=== PATIENT | female | born 1990 | race Caucasian/White ===

== ENCOUNTER 2017-10-15 18:50 | Emergency (ER) | payer MEDICAID, OTHER ==
[2017-10-15] MEDS ORDERED: NORMAL SALINE 1000 ML 1,000 ML IV ONE (19:32)
[2017-10-15] MEDS ORDERED: KETOROLAC TROMETHAMINE INJ/PF 30 MG/1 ML SDV IV ONE (19:33)
--- NOTE | 2017-10-15 19:36 | ER Document Report ---
ED Medical Screen (RME) - General Chief Complaint: Abdominal Pain Stated Complaint: HEADACHE, BACK/STOMACH PAIN Time Seen by Provider: 10/15/17 19:32 Mode of Arrival: Ambulatory Information source: Patient TRAVEL OUTSIDE OF THE [place] IN LAST 30 DAYS: No - HPI Patient complains to provider of: abd pain, back pain, JOSEPH Onset: Other - pt has had intermittent abd pain, low back pain and JOSEPH for the past week with exacerbation earlier today - Related Data Allergies/Adverse Reactions: No Known Allergies Allergy (Verified 10/15/17 18:52) Past Medical History - Social History Chew tobacco use (# tins/day): No Frequency of alcohol use: None Drug Abuse: None - Past Medical History Cardiac Medical History: Reports: Hx Hypertension - with first Denies: Hx Heart Murmur Neurological Medical History: Denies: Hx Cerebrovascular Accident, Hx Seizures Renal/ Medical History: Denies: Hx Peritoneal Dialysis Psychiatric Medical History: Reports: Hx Depression - since 14 years years old Denies: Hx Bipolar Disorder, Hx Post Traumatic Stress Disorder, Hx Schizophrenia Past Surgical History: Reports: Hx Abdominal Surgery - gastric bypass surg -2013 Physical Exam - Vital signs Vitals: Temp Pulse Resp BP Pulse Ox 98.4 F 125 H 18 138/68 H 100 10/15/17 18:56 10/15/17 18:56 10/15/17 18:56 10/15/17 18:56 10/15/17 18:56 Course - Vital Signs Vital signs: Temp Pulse Resp BP Pulse Ox 98.4 F 125 H 18 138/68 H 100 10/15/17 18:56 10/15/17 18:56 10/15/17 18:56 10/15/17 18:56 10/15/17 18:56
[2017-10-15] MEDS ORDERED: PROCHLORPERAZINE EDISYLATE INJ 10 MG/2 ML VIAL IV ONE (20:11)
[2017-10-15] MEDS ORDERED: ONDANSETRON HCL INJ/PF 4 MG/2 ML SDV IV ONE (20:11)
[2017-10-15 20:39] LABS: APPEARANCE,URINE CLEAR; BILIRUBIN,URINE NEGATIVE (NEGATIVE); COLOR,URINE STRAW; GLUCOSE, URINE NEGATIVE (NEGATIVE); KETONES,URINE NEGATIVE (NEGATIVE); LEUKOCYTE ESTERASE,URINE NEGATIVE (NEGATIVE); NITRITE,URINE NEGATIVE (NEGATIVE); PROTEIN,URINE NEGATIVE (NEGATIVE); URINE SPECIFIC GRAVITY 1.006
[2017-10-15 20:41] LABS: ALANINE AMINOTRANSFERASE 29 U/L (9-52); ALBUMIN 3.7 g/dL (3.5-5.0); ALKALINE PHOSPHATASE 64 U/L (38-126); ANION GAP 10 (5-19); ASPARTATE AMINO TRANSFERASE 21 U/L (14-36); BILIRUBIN,DIRECT 0.3 mg/dL (0.0-0.4); BILIRUBIN,TOTAL 0.5 mg/dL (0.2-1.3); BLOOD UREA NITROGEN 15 mg/dL (7-20); CALCIUM 8.5 mg/dL (8.4-10.2); CARBON DIOXIDE 23 mmol/L (22-30); CHLORIDE 105 mmol/L (98-107); GLUCOSE 84 mg/dL (75-110); POTASSIUM 3.9 mmol/L (3.6-5.0); SODIUM 137.8 mmol/L (137-145)
[2017-10-15 21:10] LABS: MEAN CORPUSCULAR HEMOGLOBIN 14.7 pg (27.0-33.4); MEAN CORPUSCULAR HGB CONC 27.7 g/dL (32.0-36.0); PLATELET COUNT 374 10^3/uL (150-450); RED BLOOD COUNT 2.02 10^6/uL (3.72-5.28); RED CELL DISTRIBUTION WIDTH 22.7 % (11.5-14.0); WHITE BLOOD COUNT 5.3 10^3/uL (4.0-10.5)
[2017-10-15 21:16] LABS: URINE AMPHETAMINES SCREEN NEGATIVE; URINE BARBITURATES SCREEN NEGATIVE; URINE BENZODIAZEPINES SCREEN NEGATIVE; URINE COCAINE SCREEN NEGATIVE; URINE MARIJUANA (THC) SCREEN NEGATIVE; URINE METHADONE SCREEN NEGATIVE; URINE PHENCYCLIDINE SCREEN NEGATIVE
[2017-10-15 21:22] LABS: ABSOLUTE LYMPHOCYTES# (MANUAL) 1.6 10^3/uL (0.5-4.7); ABSOLUTE MONOCYTES # (MANUAL) 0.1 10^3/uL (0.1-1.4); ABSOLUTE NEUTROPHILS# (MANUAL) 3.5 10^3/uL (1.7-8.2); BASOPHILS % (MANUAL) 2 % (0-2); EOSINOPHILS % (MANUAL) 1 % (0-6); LYMPHOCYTES % (MANUAL) 30 % (13-45); MONOCYTES % (MANUAL) 1 % (3-13); SEGMENTED NEUTROPHILS % (MAN) 66 % (42-78); TOTAL CELLS COUNTED 100
[2017-10-15 21:31] LABS: ANISOCYTOSIS 3+; HYPOCHROMASIA 2+; OVALOCYTES SLIGHT; POIKILOCYTOSIS SLIGHT; TEAR DROP CELLS SLIGHT
[2017-10-15 21:32] LABS: PLATELET COMMENT ADEQUATE
[2017-10-15 21:33] LABS: HEMATOCRIT 10.7 % (36.0-47.0)
[2017-10-15 21:34] LABS: POLYCHROMASIA 1+
[2017-10-15 21:39] LABS: MEAN CORPUSCULAR VOLUME 53 fl (80-97)
[2017-10-15] MEDS ORDERED: NORMAL SALINE 250 ML IV PRN ×2 (21:57)
[2017-10-15] MEDS ORDERED: PANTOPRAZOLE SODIUM 40 MG VIAL IV ONE ×2 (21:58→22:04)
--- NOTE | 2017-10-15 22:30 | RADIOLOGY REPORT (SQ) ---
EXAM DESCRIPTION: CT ABD/PELVIS WITH IV ONLY COMPLETED DATE/TIME: 10/15/2017 10:19 pm REASON FOR STUDY: abd pain COMPARISON: None. TECHNIQUE: CT scan of the abdomen and pelvis performed using helical scanning technique with dynamic intravenous contrast injection. No oral contrast. Images reviewed with lung, soft tissue, and bone windows. Reconstructed coronal and sagittal MPR images reviewed. Delayed images for evaluation of the urinary system also acquired. All images stored on PACS. All CT scanners at this facility use dose modulation, iterative reconstruction, and/or weight based d osing when appropriate to reduce radiation dose to as low as reasonably achievable (ALARA). [facility]: Dose Right [facility]: CareDose [facility]: Dose Right [facility]: Teradose 4D [facility]: Ztail CONTRAST TYPE AND DOSE: contrast/concentration: Isovue 370.00 mg/ml; Total Contrast Delivered: 91.0 ml; Total Saline Delivered: 70.0 ml RENAL FUNCTION: None required. The patient is less than 50 years old. RADIATION DOSE: CT Rad equipment meets quality standard of care and radiation dose reduction techniq ues were employed. CTDIvol: NaN - NaN mGy. DLP: 0 mGy-cm.. LIMITATIONS: None. FINDINGS: LOWER CHEST: No significant findings. No nodules or infiltrates. LIVER: Normal size. No masses. No dilated ducts. SPLEEN: Normal size. No focal lesions. PANCREAS: No masses. No significant calcifications. No adjacent inflammation or peripancreatic fluid collections. Pancreatic duct not dilated. GALLBLADDER: No identified stones by CT criteria. No inflammatory changes to suggest cholecystitis. ADRENAL GLANDS: No significant masses or asymmetry. RIGHT KIDNEY AND URETER: No solid masses. No significant calcifications. No hydronephrosis or hyd roureter. LEFT KIDNEY AND URETER: No solid masses. No significant calcifications. No hydronephrosis or hydr oureter. AORTA AND VESSELS: No aneurysm. No dissection. Renal arteries, SMA, celiac without stenosis. RETROPERITONEUM: No retroperitoneal adenopathy, hemorrhage or masses. BOWEL AND PERITONEAL CAVITY: Postsurgical change related to gastric bypass. No masses or inflammator y changes. No free fluid or peritoneal masses. APPENDIX: Normal. PELVIS: No mass. No free fluid. Normal bladder. ABDOMINAL WALL: No masses. No hernias. BONES: No significant or acute findings. OTHER: IUD within the uterus. IMPRESSION: NO SIGNIFICANT OR ACUTE FINDING IN THE ABDOMEN OR PELVIS ON CT SCAN WITH IV CONTRAST. TECHNICAL DOCUMENTATION: JOB ID: [id number] Quality ID # [id number]: Final reports with documentation of one or more dose reduction techniques (e.g., Au tomated exposure control, adjustment of the mA and/or kV according to patient size, use of iterative reconstruction technique) 2010 [employer]- All Rights Reserved Reading location - IP/workstation name: [email or web address]
--- NOTE | 2017-10-15 22:43 | ER Document Report ---
ED General - General Chief Complaint: Abdominal Pain Stated Complaint: HEADACHE, BACK/STOMACH PAIN Time Seen by Provider: 10/15/17 19:32 Mode of Arrival: Ambulatory TRAVEL OUTSIDE OF THE [place] IN LAST 30 DAYS: No - HPI Patient complains to provider of: Abdominal pain back pain and headache Notes: Patient coming in for evaluation of the above-stated symptoms. States headaches ongoing for months. Patient states also having intermittent lower back pain and intermittent abdominal pain. Patient states using Excedrin Migraine for her headaches with no relief at this time. Patient states increased stress attending college. Patient also states over the last few days to weeks having multiple bloody bowel movements. Upon my evaluation patient is lying in stretcher with sunglasses. Patient is moving all 4 extremities however at the turning on when the lights to rooms patient is noticed to be significantly pale. Patient denies any vaginal bleeding denies nausea vomiting fevers chills denies any trauma. Patient upon triage found to be significantly tachycardic with a heart rate of 125. Patient is resting heart rate is normal. - Related Data Allergies/Adverse Reactions: No Known Allergies Allergy (Verified 10/15/17 18:52) Past Medical History - General Information source: Patient - Social History Smoking Status: Former Smoker Chew tobacco use (# tins/day): No Frequency of alcohol use: None Drug Abuse: None Patient has suicidal ideation: No Patient has homicidal ideation: No - Past Medical History Cardiac Medical History: Reports: Hx Hypertension - with first Denies: Hx Heart Murmur Neurological Medical History: Denies: Hx Cerebrovascular Accident, Hx Seizures Renal/ Medical History: Denies: Hx Peritoneal Dialysis Psychiatric Medical History: Reports: Hx Depression - since 14 years years old Denies: Hx Bipolar Disorder, Hx Post Traumatic Stress Disorder, Hx Schizophrenia Past Surgical History: Reports: Hx Abdominal Surgery - gastric bypass surg -2013 Review of Systems - Review of Systems Constitutional: Other - Headache back pain and stomach pain bloody stools EENT: No symptoms reported Cardiovascular: No symptoms reported Respiratory: No symptoms reported Gastrointestinal: No symptoms reported Genitourinary: No symptoms reported Female Genitourinary: No symptoms reported Musculoskeletal: No symptoms reported Skin: No symptoms reported Hematologic/Lymphatic: No symptoms reported Neurological/Psychological: No symptoms reported Physical Exam - Vital signs Vitals: Temp Pulse Resp BP Pulse Ox 98.4 F 125 H 18 138/68 H 100 10/15/17 18:56 10/15/17 18:56 10/15/17 18:56 10/15/17 18:56 10/15/17 18:56 Interpretation: Normal - General General appearance: Appears well, Alert - HEENT Head: Normocephalic, Atraumatic Eyes: Normal Pupils: PERRL - Respiratory Respiratory status: No respiratory distress Chest status: Nontender Breath sounds: Normal Chest palpation: Normal - Cardiovascular Rhythm: Regular Heart sounds: Normal auscultation Murmur: No - Abdominal Inspection: Normal Distension: No distension Bowel sounds: Normal Tenderness: Nontender Organomegaly: No organomegaly - Rectal Stool: Heme negative, Other - Patient did not tolerate the rectal exam very well. Hemorrhoids: External - Nonthrombosed - Back Back: Normal, Nontender - Extremities General upper extremity: Normal inspection, Nontender, Normal color, Normal ROM , Normal temperature General lower extremity: Normal inspection, Nontender, Normal color, Normal ROM , Normal temperature, Normal weight bearing. No: Mariza's sign - Neurological Neuro grossly intact: Yes Cognition: Normal Orientation: AAOx4 Angel Coma Scale Eye Opening: Spontaneous Angel Coma Scale Verbal: Oriented Angel Coma Scale Motor: Obeys Commands Angel Coma Scale Total: 15 Speech: Normal Motor strength normal: LUE, RUE, LLE, RLE Sensory: Normal - Psychological Associated symptoms: Normal affect, Normal mood - Skin Skin Temperature: Warm Skin Moisture: Dry Skin Color: Pale Course - Re-evaluation Re-evalutation: 10/16/17 00:50 Notified by the laboratory that the patient's initial hemoglobin was 3 they did come and redraw the patient confirmed that hemoglobin was 3 with a hematocrit of 10. Patient's rectal exam did show a Hemoccult stool negative there is no gross blood however patient did not tolerate rectal exam very well. Patient states last bowel movement did have some blood in it. Patient states increase Excedrin use of the last few days more likely relating to her blood loss more likely from a GI bleed. CAT scan was performed no acute abnormality. Patient was ordered 3 units of blood. Did briefly discuss with her hospitalist unfortunately due to lack of GI coverage recommending transfer. I did discuss with resident at [facility] who accepted the patient in transfer on behalf of attending physician Dr. Cotto. Patient otherwise has remained stable headache improved after Compazine Zofran cocktail. Patient did receive ketorolac upfront in triage. Patient otherwise is stable at this time for transfer. - Vital Signs Vital signs: Temp Pulse Resp BP Pulse Ox 98.7 F 86 18 110/63 99 10/16/17 00:20 10/16/17 00:20 10/16/17 00:20 10/16/17 00:20 10/16/17 00:20 - Laboratory Result Diagrams: 10/15/17 20:50 10/15/17 20:07 Laboratory results interpreted by me: 10/15/17 10/15/17 10/15/17 20:07 20:07 20:07 RBC Hgb Hct MCV MCH MCHC RDW Monocytes % (Manual) Retic Count (auto) Iron Ferritin Total Protein 6.0 L Urine Urobilinogen 4.0 H Salicylates < 1.0 L Acetaminophen < 10 L Crossmatch 10/15/17 10/15/17 10/15/17 20:50 20:50 22:50 RBC 2.02 L Hgb 3.0 L* Hct 10.7 L* MCV 53 L MCH 14.7 L MCHC 27.7 L RDW 22.7 H Monocytes % (Manual) 1 L Retic Count (auto) 3.96 H Iron Ferritin Total Protein Urine Urobilinogen Salicylates Acetaminophen Crossmatch See Detail 10/15/17 22:50 RBC Hgb Hct MCV MCH MCHC RDW Monocytes % (Manual) Retic Count (auto) Iron < 10.1 L Ferritin 2.19 L Total Protein Urine Urobilinogen Salicylates Acetaminophen Crossmatch Critical Care Note - Critical Care Note Total time excluding time spent on procedures (mins): 35 Comments: Multiple evaluation for abnormal lab values. Discharge - Discharge Clinical Impression: GI bleed due to NSAIDs, Anemia requiring transfusions Abdominal pain Qualifiers: Abdominal location: generalized Qualified Code(s): R10.84 - Generalized abdominal pain Headache Qualifiers: Headache type: unspecified Headache chronicity pattern: unspecified pattern Intractability: not intractable Qualified Code(s): R51 - Headache Condition: Good Disposition: [facility]
[2017-10-15 22:57] LABS: ACETAMINOPHEN < 10 ug/mL (10-30); SALICYLATE < 1.0 mg/dL (2.0-20.0)
[2017-10-15 23:40] LABS: ABSOLUTE RETICS # 0.077 10^6/uL (0.028-0.122); RETICULOCYTE COUNT (AUTO) 3.96 % (0.66-2.85)
[2017-10-15 23:43] LABS: IRON(TIBC) < 10.1 ug/dL (37-170)
[2017-10-16 00:21] LABS: FERRITIN 2.19 ng/mL (6.2-137.0)
[2017-10-16 00:55] LABS: FOLATE > 20.00 ng/mL (>2.76)
[2017-10-16 01:36] VITALS: BP 101/60
[2017-10-19 09:46] LABS: PATH REVIEW PATHOLOGIST REVIEWED
== END 2017-10-16 01:57 | disposition short-term general hospital (02) ==
LOC: ER 18:50
DX: T39.395A Adverse effect of other nonsteroidal anti-inflammatory drugs [NSAID], initial encounter (principal); K92.2 Gastrointestinal hemorrhage, unspecified; D64.9 Anemia, unspecified; R10.84 Generalized abdominal pain; R51 Headache; M54.9 Dorsalgia, unspecified; Z87.891 Personal history of nicotine dependence
CPT/HCPCS: 96376; 99291; 96361; 96374; 96375; 86900; 86901; 36415; 36430; 86850; 82607; 82728; 82746; 83540; 83550; 80307 ×3; 85025; 82272; 81025; 85045; 80053; 81001; 84466; 86920; 74177; P9016; J1885; S0164; J0780; J2405; J7030; J7050

== ENCOUNTER 2017-11-03 02:02 | Observation (INO) | payer MEDICAID ==
[2017-11-03] MEDS ORDERED: ONDANSETRON HCL INJ/PF 4 MG/2 ML SDV IV ONE ×2 (02:15→03:06)
[2017-11-03] MEDS ORDERED: HYDROMORPHONE HCL INJ/PF 2 MG/ML AMPULE IV ONE ×2 (02:15→04:51)
[2017-11-03] MEDS ORDERED: NORMAL SALINE 1000 ML 1,000 ML IV ONE (02:16)
--- NOTE | 2017-11-03 02:19 | ER Document Report ---
ED GI/ - General Chief Complaint: Abdominal Pain Stated Complaint: ABDOMINAL PAIN Time Seen by Provider: 11/03/17 02:09 Notes: Patient is a 27-year-old female that comes emergency department for chief complaint of severe abdominal pain that started at 11:30 PM tonight suddenly. She denies injury, vomiting, fever or chills. Pain is everywhere but worse in her upper abdomen. She has had a normal bowel movement recently, nonbloody. She has an IUD, she has a history of gastric bypass years ago, she was recently treated for anemia at [facility] within the past month, had multiple transfusions for what she tells me was chronic anemia, had negative EGD and colonoscopy. TRAVEL OUTSIDE OF THE [place] IN LAST 30 DAYS: No - Related Data Allergies/Adverse Reactions: No Known Allergies Allergy (Verified 11/03/17 02:48) Past Medical History - General Information source: Patient - Social History Smoking Status: Never Smoker Drug Abuse: None Lives with: Alone Family History: Reviewed & Not Pertinent - Past Medical History Cardiac Medical History: Reports: Hx Hypertension - with first Denies: Hx Heart Murmur Neurological Medical History: Denies: Hx Cerebrovascular Accident, Hx Seizures Renal/ Medical History: Denies: Hx Peritoneal Dialysis Psychiatric Medical History: Reports: Hx Depression - since 14 years years old Denies: Hx Bipolar Disorder, Hx Post Traumatic Stress Disorder, Hx Schizophrenia Past Surgical History: Reports: Hx Abdominal Surgery - gastric bypass surg -2013 - Immunizations Hx Diphtheria, Pertussis, Tetanus Vaccination: Yes Review of Systems - Review of Systems Constitutional: No symptoms reported EENT: No symptoms reported Cardiovascular: No symptoms reported Respiratory: No symptoms reported Gastrointestinal: See HPI Genitourinary: No symptoms reported Female Genitourinary: No symptoms reported Musculoskeletal: No symptoms reported Skin: No symptoms reported Hematologic/Lymphatic: No symptoms reported Neurological/Psychological: No symptoms reported Physical Exam - Vital signs Vitals: Temp Pulse Resp BP Pulse Ox 97.5 F 128 H 28 H 111/72 95 11/03/17 02:11 11/03/17 02:11 11/03/17 02:11 11/03/17 02:11 11/03/17 02:11 Interpretation: Normal - General General appearance: Anxious In distress: Severe - HEENT Head: Normocephalic, Atraumatic Eyes: Normal Conjunctiva: Normal Extraocular movements intact: Yes Eyelashes: Normal Pupils: PERRL Mouth/Lips: Normal Mucous membranes: Normal Pharynx: Normal Neck: Normal - Respiratory Respiratory status: No respiratory distress Chest status: Nontender Breath sounds: Normal. No: Decreased air movement, Wheezing Chest palpation: Normal - Cardiovascular Rhythm: Regular, Tachycardia Heart sounds: Normal auscultation, S1 appreciated, S2 appreciated Murmur: No - Abdominal Inspection: Normal Bowel sounds: Normal Tenderness: Tender, Guarding - Patient guarding all over the abdomen, very difficult to get an accurate exam - Back Back: Normal, Nontender. No: Tender, CVA tenderness - Extremities General upper extremity: Normal inspection, Nontender, Normal color, Normal ROM , Normal temperature General lower extremity: Normal inspection, Nontender, Normal color, Normal ROM , Normal temperature, Normal weight bearing. No: Mariza's sign - Neurological Neuro grossly intact: Yes Cognition: Normal Orientation: AAOx4 Mears Coma Scale Eye Opening: Spontaneous Mears Coma Scale Verbal: Oriented Mears Coma Scale Motor: Obeys Commands Angel Coma Scale Total: 15 Speech: Normal Motor strength normal: LUE, RUE, LLE, RLE Sensory: Normal - Psychological Associated symptoms: Anxious - Skin Skin Temperature: Warm Skin Moisture: Dry Skin Color: Normal Course - Re-evaluation Re-evalutation: Patient rocking and crying, appears to be in a lot of pain, abdomen is very tender regardless of where I palpate, difficult to examine as result. Because of gastric bypass history and sudden onset of pain I am concerned that she has a perforation, will send for acute abdominal series for evaluation of free air, workup pending. Patient medicated but is still very difficult to examine with a lot of abdominal pain, will require additional medication, this was placed. No free air on acute abdomen series. Chemistry is generally unremarkable including no significant elevation of lipase, LFTs, bilirubin. CBC shows leukocytosis at 17.8 thousand. At this time patient unable to tolerate contrast for CAT scan because of continuing large amount of discomfort. CAT scan with IV contrast placed. Radiologist called me, reports that CAT scan appears to show acute appendicitis , he feels the gallbladder is not infected although there is a small amount of pericholecystic fluid. No free air. Given Zosyn. Patient has been kept n.p.o. Patient is tender in both lower and upper abdomen, slightly more in the upper abdomen. Called and spoke with Dr. Quijano, he will come evaluate the patient. 11/03/17 Patient was medicated again along with toradol just before the surgery evaluated her, she actually was easier to examine finally, surgeon concerned because patient does have lower abdominal pain but also is most tender in the right upper quadrant. Recommends right upper quadrant ultrasound and he wants a CAT scan performed with oral contrast with no IV contrast. He asks for this to be placed. Pending imaging results. 11/03/17 07:20 Dr. Holm, now the surgeon rn concurrent review, came and evaluated the patient, reviewed the images. His recommendation is that this appears to be a retrocecal appendicitis and not cholecystitis, recommends that patient not have additional CAT scan performed, wants to take her directly to the operating room. This was discussed with patient and family who state understanding and agreement. - Vital Signs Vital signs: Temp Pulse Resp BP Pulse Ox 98.0 F 98 18 121/84 100 11/03/17 06:10 11/03/17 07:35 11/03/17 07:35 11/03/17 07:35 11/03/17 07:35 - Laboratory Result Diagrams: 11/03/17 03:15 11/03/17 02:33 Laboratory results interpreted by me: 11/03/17 11/03/17 02:33 03:15 WBC 17.8 H Hgb 10.8 L Hct 34.6 L MCV 73 L D MCH 22.8 L MCHC 31.2 L RDW 32.9 H Plt Count 497 H Seg Neutrophils % 89.0 H Lymphocytes % 5.5 L Absolute Neutrophils 15.8 H Creatinine 0.43 L AST 67 H Lipase 384.9 H Discharge - Discharge Clinical Impression: Acute appendicitis Qualifiers: Acute appendicitis type: with generalized peritonitis Qualified Code(s): K35.2 - Acute appendicitis with generalized peritonitis Abdominal pain Qualifiers: Abdominal location: generalized Qualified Code(s): R10.84 - Generalized abdominal pain Condition: Fair Disposition: ADMITTED INPATIENT Admitting Provider: Surgicalist Unit Admitted: OR
[2017-11-03] MEDS ORDERED: FENTANYL CITRATE INJ/PF 100 MCG/2 ML AMPUL IV ONE ×3 (03:06→07:52)
[2017-11-03 03:12] LABS: ALANINE AMINOTRANSFERASE 33 U/L (9-52); ALBUMIN 4.9 g/dL (3.5-5.0); ALKALINE PHOSPHATASE 91 U/L (38-126); ANION GAP 16 (5-19); ASPARTATE AMINO TRANSFERASE 67 U/L (14-36); BILIRUBIN,DIRECT 0.2 mg/dL (0.0-0.4); BILIRUBIN,TOTAL 0.3 mg/dL (0.2-1.3); BLOOD UREA NITROGEN 10 mg/dL (7-20); CALCIUM 9.7 mg/dL (8.4-10.2); CARBON DIOXIDE 24 mmol/L (22-30); CHLORIDE 102 mmol/L (98-107); GLUCOSE 96 mg/dL (75-110); LIPASE 384.9 U/L (23-300); POTASSIUM 4.1 mmol/L (3.6-5.0); SODIUM 141.8 mmol/L (137-145); TOTAL PROTEIN 7.5 g/dL (6.3-8.2)
[2017-11-03 03:42] LABS: ABSOLUTE BASOPHILS # (AUTO) 0.2 10^3/uL (0.0-0.2); ABSOLUTE MONOCYTES (AUTO) 0.8 10^3/uL (0.1-1.4); ABSOLUTE NEUT (AUTO) 15.8 10^3/uL (1.7-8.2); BASOPHILS % (AUTO) 0.9 % (0-2); EOSINOPHILS % (AUTO) 0.2 % (0-6); HEMATOCRIT 34.6 % (36.0-47.0); HEMOGLOBIN 10.8 g/dL (12.0-15.5); LYMPHOCYTES % (AUTO) 5.5 % (13-45); MEAN CORPUSCULAR HEMOGLOBIN 22.8 pg (27.0-33.4); MEAN CORPUSCULAR HGB CONC 31.2 g/dL (32.0-36.0); MONOCYTES % (AUTO) 4.4 % (3-13); PLATELET COUNT 497 10^3/uL (150-450); RED BLOOD COUNT 4.74 10^6/uL (3.72-5.28); RED CELL DISTRIBUTION WIDTH 32.9 % (11.5-14.0); TOTAL CELLS COUNTED % (AUTO) 100 %; WHITE BLOOD COUNT 17.8 10^3/uL (4.0-10.5)
[2017-11-03 03:46] LABS: MEAN CORPUSCULAR VOLUME 73 fl (80-97)
--- NOTE | 2017-11-03 03:53 | RADIOLOGY REPORT (SQ) ---
EXAM DESCRIPTION: ACUTE ABDOMEN SERIES CLINICAL HISTORY: 27 years, Female, eval for free air COMPARISON: None. Views: Four FINDINGS: Intestinal gas pattern is within normal limits. No evidence of free air, as queried. No suspicious calcification. Grossly intact skeletal structures. No acute cardiopulmonary findings. ICD. Suture pattern opacity of the left paracentral abdomen. IMPRESSION: No acute findings.
[2017-11-03 04:08] LABS: HYPOCHROMASIA 2+
[2017-11-03 04:09] LABS: ANISOCYTOSIS 4+
[2017-11-03 04:10] LABS: PLATELET COMMENT INCREASED
[2017-11-03] MEDS ORDERED: KETOROLAC TROMETHAMINE INJ/PF 30 MG/1 ML SDV IV ONE (04:52)
[2017-11-03] MEDS ORDERED: PIPERACILLIN/TAZOBACTAM 3.375 GM VIAL IV ONE (04:54)
--- NOTE | 2017-11-03 04:57 | RADIOLOGY REPORT (SQ) ---
EXAM DESCRIPTION: CT ABD/PELVIS WITH IV ONLY CLINICAL HISTORY: 27 years Female, severe RUQ abdominal pain COMPARISON: 10/15/2017 TECHNIQUE: 100 mL Isovue-370 IV contrast. Coronal and sagittal reformat. This exam was performed according to our departmental dose-optimization program, which includes automated exposure control, adjustment of the mA and/or kV according to patient size and/or use of iterative reconstruction technique. FINDINGS: 9 mm diameter likely appendix (as correlated with prior exam) with small adjacent free fluid. Moderate free pelvic fluid. Increased specificity/sensitivity can be achieved with the use of oral contrast if clinically warranted. Hydropic, nontensile gallbladder with small pericholecystic fluid. Mild splenomegaly with splenic index of 675. Adequate appearing IUD. Gastric suture. Inferior thorax, liver, pancreas, spleen, adrenals, renal system, gastrointestinal tract, pelvic organs, lymphatics, vasculature, and musculoskeleton appear otherwise unremarkable. IMPRESSION: Acute appendicitis pattern. Critical results reporting: The results of the examination have been personally discussed with the referring health care provider, CHARLIE VILLALTA, immediately following interpretation of the examination on 11/03/2017 3:53 AM CDT.
[2017-11-03] MEDS ORDERED: NORMAL SALINE 1000 ML 1,000 ML IV PRN (06:16)
--- NOTE | 2017-11-03 06:32 | RADIOLOGY REPORT (SQ) ---
EXAM DESCRIPTION: U/S ABDOMEN LIMITED W/O DOP CLINICAL HISTORY: 27 years, Female, eval gallbladder COMPARISON: None. LIMITATIONS: None. FINDINGS: Minimal pericholecystic fluid. Gallbladder, negative sonographic Saunders's test, no hepatobiliary ductal dilation, common bile duct diameter 0.3 cm, partially obscured pancreas/aorta, liver, 11 cm right kidney appear otherwise unremarkable. No gross ascites. IMPRESSION: Minimal pericholecystic fluid. Else, unremarkable.
[2017-11-03 08:05] LABS: APPEARANCE,URINE CLEAR; BILIRUBIN,URINE NEGATIVE (NEGATIVE); COLOR,URINE YELLOW; GLUCOSE, URINE NEGATIVE (NEGATIVE); KETONES,URINE 20 mg/dL (NEGATIVE); LEUKOCYTE ESTERASE,URINE NEGATIVE (NEGATIVE); NITRITE,URINE NEGATIVE (NEGATIVE); PROTEIN,URINE NEGATIVE (NEGATIVE); UROBILINOGEN,URINE NEGATIVE mg/dL (<2.0)
[2017-11-03 08:07] LABS: URINE SPECIFIC GRAVITY > 1.060
[2017-11-03] MEDS ORDERED: LIDOCAINE 2% INJ-PF (20 MG/ML) 10 ML AMPUL ONE (08:07)
[2017-11-03] MEDS ORDERED: HYDROMORPHONE HCL INJ/PF 2 MG/ML AMPULE ONE (08:07)
[2017-11-03] MEDS ORDERED: FENTANYL CITRATE INJ/PF 100 MCG/2 ML AMPUL ONE ×2 (08:07→18:08)
[2017-11-03] MEDS ORDERED: PROPOFOL INJ 200 MG/20 ML VIAL IV ONE (08:08)
[2017-11-03] MEDS ORDERED: MIDAZOLAM 2 MG/2 ML INJ ONE (08:08)
[2017-11-03] MEDS ORDERED: ACETAMINOPHEN 100 ML IV ONE (08:08)
[2017-11-03] MEDS ORDERED: LIDOCAINE 1% INJ-PF (10 MG/ML) 30 ML SDV ONE (08:16)
[2017-11-03] MEDS ORDERED: BUPIVACAINE HCL 0.25 % INJ/PF (2.5 MG/1 ML) 30 ML VIAL ONE (08:16)
--- NOTE | 2017-11-03 08:39 | PDOC H&P ---
History of Present Illness Admission Date/PCP: 11/03/17 07:30 Patient complains of: Abdominal pain x 9 hrs History of Present Illness: DEA MUNGUIA is a 27 year old female with a history of Stone-en-Y gastric bypass 5 years ago, who presented to the ER early this morning with upper abdominal pain that started on the right side nine hrs ago. The pain is described as gripping. It became generalized soon after onset. She had nausea but no dry heaves. Bowel movements have been normal and she had one last night before the pain started. She does not have abdominal distension, no urinary frequency or dysuria, no cough or shortness of breath. She has not had similar pain in the past. She had weighed 320 lbs prior to her bypass but presently weighs 185 lbs with a height of 5 feet 6 inches her BMI went from 51.6 kg/m2 before to 29.9 kg/m2 after the bypass. She was not taking her vitamins including B12 or calcium suplements and presented to the ER about 2 weeks ago with migraines and headaches. A CBC revealed she was anemic and received 5 U PRBCs. She was also found to have degenerative disease of the spine. She has since started taking the supplements. She has never been diagnosed with an ulcer. She does not take NSAIDs. Past Medical History Cardiac Medical History: Reports: Hypertension - gestational hypertension with first but has since resolved. Denies: Heart Murmur Neurological Medical History: Denies: Seizures Psychiatric Medical History: Reports: Depression - since 14 years years old Denies: Bipolar Disorder, Post Traumatic Stress Disorder Past Surgical History Past Surgical History: Reports: Section - 2 C- sections; one before and one after the gastric bypass., Gastric Bypass Surgery - done 5 yrs ago at [facility] here in [place]., Orthopedic Surgery - Right Ankle ORIF Social History Lives with: Alone Smoking Status: Never Smoker Family History Family History: Reviewed & Not Pertinent Parental Family History Reviewed: No Children Family History Reviewed: Unknown Sibling(s) Family History Reviewed.: Unknown Medication/Allergy Home Medications: No Home Medications 11/03/17 Allergies/Adverse Reactions: No Known Allergies Allergy (Verified 11/03/17 02:48) Review of Systems Constitutional: ABSENT: as per HPI, anorexia, chills, fatigue, fever(s), headache(s), night sweats, weakness, weight gain, weight loss, other Eyes: ABSENT: visual disturbances Nose, Mouth, and Throat: ABSENT: as per HPI, headache(s), mouth pain, sore throat, vertigo, other Cardiovascular: ABSENT: chest pain, dyspnea on exertion, edema, orthropnea, palpitations Respiratory: ABSENT: cough, hemoptysis Gastrointestinal: PRESENT: as per HPI Genitourinary: ABSENT: dysuria, hematuria Musculoskeletal: PRESENT: back pain Integumentary: PRESENT: diaphoresis. ABSENT: rash, wounds Neurological: ABSENT: abnormal gait, abnormal speech, confusion, dizziness, focal weakness, syncope Psychiatric: ABSENT: anxiety, depression, homidical ideation, suicidal ideation Endocrine: ABSENT: cold intolerance, heat intolerance, polydipsia, polyuria Hematologic/Lymphatic: ABSENT: easy bleeding, easy bruising Physical Exam Vital Signs: Temp Pulse Resp BP Pulse Ox 98.6 F 97 20 123/76 100 11/03/17 08:03 11/03/17 08:03 11/03/17 08:03 11/03/17 08:03 11/03/17 08:03 General appearance: PRESENT: obese, severe distress Head exam: PRESENT: atraumatic, normocephalic Eye exam: PRESENT: conjunctiva pink, EOMI, PERRLA. ABSENT: scleral icterus Ear exam: PRESENT: normal external ear exam Mouth exam: PRESENT: moist, tongue midline Neck exam: ABSENT: carotid bruit, JVD, lymphadenopathy, thyromegaly Respiratory exam: PRESENT: clear to auscultation freddie. ABSENT: rales, rhonchi, wheezes Cardiovascular exam: PRESENT: RRR. ABSENT: diastolic murmur, rubs, systolic murmur GI/Abdominal exam: PRESENT: guarding, normal bowel sounds, soft, tenderness - guarding and tenderness especially in the RUQ, other - 8cm Midline epigastric incisional scar, no cough impulse. small laparoscopic incisional scars in the upper abdomen; pfannenstiel scar Rectal exam: PRESENT: deferred Musculoskeletal exam: PRESENT: ambulatory, full ROM Neurological exam: PRESENT: alert, awake, oriented to person, oriented to place , oriented to time, oriented to situation, CN II-XII grossly intact. ABSENT: motor sensory deficit Psychiatric exam: PRESENT: appropriate affect, normal mood. ABSENT: homicidal ideation, suicidal ideation Skin exam: PRESENT: other - tattooes on bilateral arms, neck Results Impressions: Acute Abdomen Series 11/03/17 02:15 IMPRESSION: No acute findings. Abdomen/Pelvis CT 11/03/17 03:37 IMPRESSION: Acute appendicitis pattern. Critical results reporting: The results of the examination have been personally discussed with the referring health care provider, CHARLIE VILLALTA, immediately following interpretation of the examination on 11/03/2017 3:53 AM CDT. Abdomen Ultrasound 11/03/17 05:23 IMPRESSION: Minimal pericholecystic fluid. Else, unremarkable. Assessment & Plan - Diagnosis (1) Acute appendicitis Qualifiers: Acute appendicitis type: with generalized peritonitis Qualified Code(s): K35.2 - Acute appendicitis with generalized peritonitis; K35.0 - Acute appendicitis with generalized peritonitis (2) Abdominal pain Qualifiers: Abdominal location: generalized Qualified Code(s): R10.84 - Generalized abdominal pain - Plan Summary Plan Summary: The patient is admitted Keep NPO IV Fluids Pain control Broad spectrum IV antibiotics. CT is suggestive of early appendicitis but my concern is for a catastrophic bowel pathology post gastric bypass such as an internal hernia with ischemic bowel; she does have significant leucocytosis. I did discuss my the CT findings and my concern with patient and her mum. Instead of obtaining a repeat CT with contrast I will procedd to a diagnostic laparoscopy, possible celiotomy; if the pathology is the gallbladder then she will have an appendectomy; if other pathology is found then it will be tackled as approptiate.
[2017-11-03] MEDS ORDERED: CEFAZOLIN INJ 1 GM VIAL ONE (08:44)
[2017-11-03] MEDS ORDERED: METRONIDAZOLE 500 MG/NS RTU 100 ML IV ONE (08:44)
[2017-11-03] MEDS ORDERED: PROMETHAZINE HCL INJ 25 MG/1 ML VIAL IV PRN ×2 (10:32)
[2017-11-03] MEDS ORDERED: OXYCODONE-ACETAMINOPHEN 5-325 MG TABLET PO PRN ×3 (10:32→14:52)
[2017-11-03] MEDS ORDERED: ONDANSETRON HCL INJ/PF 4 MG/2 ML SDV IV PRN ×2 (10:32→12:23)
[2017-11-03] MEDS ORDERED: MEPERIDINE HCL/PF INJ 25 MG/1 ML DISP.SYRIN IV PRN (10:32)
[2017-11-03] MEDS ORDERED: FENTANYL CITRATE INJ/PF 100 MCG/2 ML AMPUL IV PRN ×5 (10:32→17:47)
[2017-11-03] MEDS ORDERED: DIPHENHYDRAMINE HCL 50 MG/ML VIAL IV PRN (10:32)
[2017-11-03] MEDS: FENTANYL CITRATE INJ/PF 100 MCG/2 ML AMPUL ONE ×2 (11:35→11:40)
[2017-11-03] MEDS ORDERED: LORAZEPAM INJ 2 MG/1 ML VIAL ONE (12:11)
[2017-11-03] MEDS ORDERED: MORPHINE SULFATE 10 MG/ML INJ IV PRN (12:23)
--- NOTE | 2017-11-03 12:23 | Operative Report ---
Operative Report DATE OF SURGERY: 11/03/17 PREOPERATIVE DIAGNOSIS: Acute Appendicitis POSTOPERATIVE DIAGNOSIS: Acute Cholecystitis OPERATION: Diagnostic Laparoscopy, Lysis of adhesions, laparoscopic Cholecystectomy and Laparoscopic Appendectomy. SURGEON: CAROL GRAF ANESTHESIA: GA TISSUE REMOVED OR ALTERED: 1. GALLBLADDER. 2. APPENDIX COMPLICATIONS: NONE ESTIMATED BLOOD LOSS: 20 ML INTRAOPERATIVE FINDINGS: 1. Distended gallbladder with bile; adhesions of the gastrohepatic ligament to the gallbladder infundibulum. 2. Normal appearing Appendix. 3. About 20 ml of Free bilious fluid around the gallbladder. 4. S/p Retrocolic Stone-en-Y gastric bypass. 5. Normal appearing small bowel from cecum to transverse mesocolon; Jejuno-jejunostomy is close to the transverse mesocolon. 6. Gastric pouch and excluded stomach appear normal. 7. Large bowel appears normal. PROCEDURE: The patient was brought to the operating room and placed on the operating table. General endotracheal anesthesia was administered. A ramirez catheter was inserted and she was positioned supine with both arms tucked by her side. The patient received 2g Ancef and 500mg Flagyl and a time out was done. The abdomen was prepped with chloraprep and sterile drapes laid. Under sterile aseptic conditions, a Verres needle was introduced at the West's point and pneumperitoneum insufflated to 15mmHg. Access to the peritoneal cavity was gained using the optical bladeless trocar technique with a 10mm port at the umbilicus. The gallbladder was noted to be distended with a small amount of bile -stained fluid around. A 5mm port was placed in the right subcostal area, anterior axillary line and through this port a bowel clamp was used to examine the appendix which appeared normal. In planning the port placements at this time it was decided that the primary problem was probably the gallbladder but an appendectomy would be done anyway because of the CT findings and a diagnostic laparoscopy still needed to be done to examine the small bowel and the gastric bypass anatomy. To this end a 12mm port was placed at the left lower quadrant (so a stapler could be passed through this for the incidental appendectomy) and a 5mm port placed in the midline subxiphoid area to aid retraction for the laparoscopy and for clip pipe and test supervisor during the cholecystectomy. . The diagnostic laparoscopy was then performed; she was noted to have a retrocolic Stone limb and the small bowel was run from the cecum to the transverse mesocolic window and the duodenojejunal junction at the ligament of Trietz. It appeared normal but for some adhesions at the mesocolic window. The cholecystectomy was then performed. A 5mm port was placed in the right subcostal area, midclavicular line and the patient placed in reverse trendelenberg, right side up. The gallbladder was first aspirated of about 120 ml of zhang greenish bile and then grasped at the fundus with a grasper passed through the lateral right subcostal port. Flimsy adhesions of the infundibular portion of the gallbladder to the gastrohepatic ligament had to be bluntly teased down to expose the infundibulum. 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 The infundibulum was grasped with a grasper passed through the medial right subcostal port. The Calot's triangle was dissected out to expose the cystic duct and artery with a critical view of safety displayed anteriorly and posteriorly as shown in the accompanying pictures. The duct was doubly clipped toward the patient side and singly clipped toward the gallbladder and transected between the clips. The artery was ligated with the Ligasure device. The gallbladder was then dissected off the liver bed and placed in the right subdiaphragmatic space for later removal. The appendectomy was then performed. The appendix was grasped with a bowel clamp and a window created in the mesoappendix at the base of the appendix. The appendix was transected with the [place] linear stapler 45mm blue load - 3.5mm closed to a 1.5mm. The mesoappendix was divided with the Ligasure. Both the appendix and the gallbladder were retrieved from the peritoneal cavity in an endopouch. The umbilical and left lower quadrant port sites had their facial layers closed with 0-prolene using the endoclosure device. The pneumoperitoneum was desufflated and all the ports removed. The skin incisions were closed with 4 -0 monocryl subcuticular stitches. The wounds were infiltrated with local anesthesia, a 1:1 mixture of 1% lidocaine and 0.25% Bupivacaine, a total of 20 ml, they were cleaned and dressed with dermabond. The patient tolerated the procedure well, she had the ramirez removed and was extubated in the operating room and taken to the PACU in stable condition.
[2017-11-03] MEDS ORDERED: HYDROMORPHONE HCL INJ/PF 2 MG/ML AMPULE IV PRN (13:52)
[2017-11-03] MEDS: POTASSI CL 20 MEQ/D5-1/2NS 1L 1,000 ML IV PRN (14:02)
[2017-11-03] MEDS ORDERED: OXYCODONE-ACETAMINOPHEN 5-325 MG TABLET ONE (14:53)
[2017-11-03] MEDS ORDERED: NEOSTIGMINE METHYLSULFATE 10 MG/10 ML VIAL ONE (15:02)
[2017-11-03] MEDS ORDERED: VECURONIUM BROMIDE INJ 10 MG VIAL IV ONE (15:02)
[2017-11-03] MEDS ORDERED: GLYCOPYRROLATE INJ 0.4 MG/2 ML VIAL ONE (15:02)
[2017-11-03] MEDS ORDERED: ONDANSETRON HCL INJ/PF 4 MG/2 ML SDV ONE (15:02)
[2017-11-03] MEDS ORDERED: SUCCINYLCHOLINE CHLORIDE INJ 200 MG/10 ML VIAL ONE (15:02)
[2017-11-03] MEDS ORDERED: DEXAMETHASONE SOD PHOSPHATE INJ 4 MG/1 ML VIAL ONE (15:02)
[2017-11-03] MEDS: DOCUSATE SODIUM 100 MG CAPSULE PO SCH (18:09)
[2017-11-03] MEDS: FENTANYL CITRATE INJ/PF 100 MCG/2 ML AMPUL IV PRN (22:14)
[2017-11-04] MEDS: POTASSI CL 20 MEQ/D5-1/2NS 1L 1,000 ML IV PRN (03:33)
[2017-11-04] MEDS: FENTANYL CITRATE INJ/PF 100 MCG/2 ML AMPUL IV PRN ×2 (05:57→10:37)
[2017-11-04 07:15] LABS: ABSOLUTE BASOPHILS # (AUTO) 0.1 10^3/uL (0.0-0.2); ABSOLUTE EOSINOPHILS # (AUTO) 0.1 10^3/uL (0.0-0.6); ABSOLUTE LYMPHOCYTES (AUTO) 1.9 10^3/uL (0.5-4.7); ABSOLUTE MONOCYTES (AUTO) 0.9 10^3/uL (0.1-1.4); ABSOLUTE NEUT (AUTO) 5.1 10^3/uL (1.7-8.2); BASOPHILS % (AUTO) 0.9 % (0-2); EOSINOPHILS % (AUTO) 0.8 % (0-6); HEMATOCRIT 26.9 % (36.0-47.0); MEAN CORPUSCULAR HEMOGLOBIN 23.7 pg (27.0-33.4); MEAN CORPUSCULAR VOLUME 74 fl (80-97); MONOCYTES % (AUTO) 11.5 % (3-13); PLATELET COUNT 362 10^3/uL (150-450); RED BLOOD COUNT 3.63 10^6/uL (3.72-5.28); RED CELL DISTRIBUTION WIDTH 31.9 % (11.5-14.0); SEGMENTED NEUTROPHILS % (AUTO) 63.8 % (42-78); TOTAL CELLS COUNTED % (AUTO) 100 %
[2017-11-04 07:38] LABS: ANION GAP 9 (5-19); BLOOD UREA NITROGEN 6 mg/dL (7-20); CALCIUM 9.1 mg/dL (8.4-10.2); CARBON DIOXIDE 25 mmol/L (22-30); CHLORIDE 106 mmol/L (98-107); GLUCOSE 96 mg/dL (75-110); SODIUM 139.7 mmol/L (137-145)
[2017-11-04 07:53] LABS: HEMOGLOBIN 8.6 g/dL (12.0-15.5)
[2017-11-04 07:55] LABS: ANISOCYTOSIS 4+; HYPOCHROMASIA 1+; OVALOCYTES SLIGHT; PLATELET COMMENT ADEQUATE; POIKILOCYTOSIS SLIGHT
[2017-11-04] MEDS ORDERED: ENOXAPARIN SODIUM INJ 40 MG/0.4 ML DISP.SYRIN SUBCUT SCH (10:00)
[2017-11-04] MEDS: DOCUSATE SODIUM 100 MG CAPSULE PO SCH (10:38)
--- NOTE | 2017-11-04 11:39 | PDOC PROGRESS REPORT ---
Subjective Progress Note for:: 11/04/17 Subjective:: POD #1 s/p diagnostic laparoscopy, laparoscopic cholecystectomy, laparoscopic appendectomy Tolerating orally Has issues with incisional pain control - seems to need more narcotics for pain control; percocet 10/325 was not effective, fentanyl barely so. Says she prefers Vicodin. Reason For Visit: ACUTE CHOLECYSTITIS Physical Exam Vital Signs: Temp Pulse Resp BP Pulse Ox 98.5 F 84 15 104/60 100 11/04/17 08:17 11/04/17 08:17 11/04/17 08:17 11/04/17 08:17 11/04/17 08:17 Intake & Output 11/03/17 11/04/17 11/05/17 06:59 06:59 06:59 Intake Total 4020 Output Total 1750 Balance 2270 Weight 81.6 kg General appearance: PRESENT: no acute distress Head exam: PRESENT: atraumatic, normocephalic Respiratory exam: PRESENT: clear to auscultation freddie. ABSENT: rales, rhonchi, wheezes Cardiovascular exam: PRESENT: RRR. ABSENT: diastolic murmur, rubs, systolic murmur GI/Abdominal exam: PRESENT: normal bowel sounds, soft, other - incisions are clean, dry, intact.. ABSENT: distended, guarding, mass, organolmegaly, rebound , tenderness Neurological exam: PRESENT: alert, awake, oriented to person, oriented to place , oriented to time, oriented to situation, CN II-XII grossly intact. ABSENT: motor sensory deficit Results Laboratory Results: 11/04/17 06:11 11/04/17 06:11 11/04/17 11/04/17 06:11 06:11 WBC 8.0 RBC 3.63 L Hgb 8.6 L D Hct 26.9 L MCV 74 L MCH 23.7 L MCHC 32.0 RDW 31.9 H Plt Count 362 Seg Neutrophils % 63.8 Lymphocytes % 23.0 Monocytes % 11.5 Eosinophils % 0.8 Basophils % 0.9 Absolute Neutrophils 5.1 Absolute Lymphocytes 1.9 Absolute Monocytes 0.9 Absolute Eosinophils 0.1 Absolute Basophils 0.1 Sodium 139.7 Potassium 4.0 Chloride 106 Carbon Dioxide 25 Anion Gap 9 BUN 6 L Creatinine 0.43 L Est GFR ( Amer) > 60 Est GFR (Non-Af Amer) > 60 Glucose 96 Calcium 9.1 Impressions: Acute Abdomen Series 11/03/17 02:15 IMPRESSION: No acute findings. Abdomen/Pelvis CT 11/03/17 03:37 IMPRESSION: Acute appendicitis pattern. Critical results reporting: The results of the examination have been personally discussed with the referring health care provider, CHARLIE VILLALTA, immediately following interpretation of the examination on 11/03/2017 3:53 AM CDT. Abdomen Ultrasound 11/03/17 05:23 IMPRESSION: Minimal pericholecystic fluid. Else, unremarkable. Assessment & Plan - Diagnosis (1) Abdominal pain Qualifiers: Abdominal location: generalized Qualified Code(s): R10.84 - Generalized abdominal pain (2) Cholecystitis, acute Is this a current diagnosis for this admission?: Yes - Plan Summary Plan Summary: Ia home today.
--- NOTE | 2017-11-04 11:44 | PDOC DISCHARGE SUMMARY ---
General - Admit/Disc Date/PCP Admission Date/Primary Care Provider: 11/03/17 07:30 Discharge Date: 11/04/17 - Discharge Diagnosis (2) Cholecystitis, acute Is this a current diagnosis for this admission?: Yes - Additional Information Resuscitation Status: Full Code Home Medications: No Home Medications 11/03/17 History of Present Illness History of Present Illness: DEA MUNGUIA is a 27 year old female with a history of Salena-en-Y gastric bypass 5 years ago, who presented to the ER early this morning with upper abdominal pain that started on the right side nine hrs ago. The pain is described as gripping. It became generalized soon after onset. She had nausea but no dry heaves. Bowel movements have been normal and she had one last night before the pain started. She does not have abdominal distension, no urinary frequency or dysuria, no cough or shortness of breath. She has not had similar pain in the past. She had weighed 320 lbs prior to her bypass but presently weighs 185 lbs with a height of 5 feet 6 inches her BMI went from 51.6 kg/m2 before to 29.9 kg/m2 after the bypass. She was not taking her vitamins including B12 or calcium suplements and presented to the ER about 2 weeks ago with migraines and headaches. A CBC revealed she was anemic and received 5 U PRBCs. She was also found to have degenerative disease of the spine. She has since started taking the supplements. She has never been diagnosed with an ulcer. She does not take NSAIDs. Hospital Course Hospital Course: The patient had a diagnostic laparoscopy at which she was noted to have a distended gallbladder with small ampount of bilious fluid around the the gallbladder as well as in the sub hepatic space. A cholecystectomy was done as well as an appendectomy because of the CT findings. Her gastric bypass anatomy, which had a retrocolic salena limb, appeared normal. Physical Exam Vital Signs: Temp Pulse Resp BP Pulse Ox 98.5 F 84 15 104/60 100 11/04/17 08:17 11/04/17 08:17 11/04/17 08:17 11/04/17 08:17 11/04/17 08:17 Intake & Output 11/03/17 11/04/17 11/05/17 06:59 06:59 06:59 Intake Total 4020 Output Total 1750 Balance 2270 Weight 81.6 kg General appearance: PRESENT: no acute distress Head exam: PRESENT: atraumatic, normocephalic Eye exam: PRESENT: conjunctiva pink, EOMI, PERRLA. ABSENT: scleral icterus Neck exam: ABSENT: carotid bruit, JVD, lymphadenopathy, thyromegaly Respiratory exam: PRESENT: clear to auscultation freddie. ABSENT: rales, rhonchi, wheezes Cardiovascular exam: PRESENT: RRR. ABSENT: diastolic murmur, rubs, systolic murmur GI/Abdominal exam: PRESENT: normal bowel sounds, soft, other - incisions are clean, dry, intact. ABSENT: distended, guarding, mass, organolmegaly, rebound, tenderness Neurological exam: PRESENT: alert, awake, oriented to person, oriented to place , oriented to time, oriented to situation, CN II-XII grossly intact. ABSENT: motor sensory deficit Results Laboratory Results: 11/04/17 06:11 11/04/17 06:11 11/04/17 11/04/17 06:11 06:11 WBC 8.0 RBC 3.63 L Hgb 8.6 L D Hct 26.9 L MCV 74 L MCH 23.7 L MCHC 32.0 RDW 31.9 H Plt Count 362 Seg Neutrophils % 63.8 Lymphocytes % 23.0 Monocytes % 11.5 Eosinophils % 0.8 Basophils % 0.9 Absolute Neutrophils 5.1 Absolute Lymphocytes 1.9 Absolute Monocytes 0.9 Absolute Eosinophils 0.1 Absolute Basophils 0.1 Sodium 139.7 Potassium 4.0 Chloride 106 Carbon Dioxide 25 Anion Gap 9 BUN 6 L Creatinine 0.43 L Est GFR ( Amer) > 60 Est GFR (Non-Af Amer) > 60 Glucose 96 Calcium 9.1 Impressions: Acute Abdomen Series 11/03/17 02:15 IMPRESSION: No acute findings. Abdomen/Pelvis CT 11/03/17 03:37 IMPRESSION: Acute appendicitis pattern. Critical results reporting: The results of the examination have been personally discussed with the referring health care provider, CHARLIE VILLALTA, immediately following interpretation of the examination on 11/03/2017 3:53 AM CDT. Abdomen Ultrasound 11/03/17 05:23 IMPRESSION: Minimal pericholecystic fluid. Else, unremarkable. Qualifiers - * PATEINT BEING DISCHARGED WITH ANY OF THE FOLLOWING DIAGNOSIS?: No VTE patient discharged on overlapping Therapy?: No Plan Discharge Plan: For discharge home today Time Spent: Less than 30 Minutes
[2017-11-04 12:12] VITALS: BP 118/60
== END 2017-11-04 14:03 | disposition home or self-care (01) ==
LOC: ER 02:02 → EH 07:30 → INTOOBSV 07:30 → INOR 09:37 → 2N 12:55
PROVIDERS: ATTEND Surgery
PROC: 0DTJ4ZZ Resection of Appendix, Percutaneous Endoscopic Approach (ICD-10-PCS; 2017-11-03)
PROC: 0FT44ZZ Resection of Gallbladder, Percutaneous Endoscopic Approach (ICD-10-PCS; principal; 2017-11-03 08:15)
DX: K81.1 Chronic cholecystitis (principal); E66.9 Obesity, unspecified; R10.84 Generalized abdominal pain; G89.18 Other acute postprocedural pain; Z68.29 Body mass index [BMI] 29.0-29.9, adult; Z97.5 Presence of (intrauterine) contraceptive device; Z98.84 Bariatric surgery status
CPT/HCPCS: 96376; 99285; 96361; 96375; 96365; 86900; 86901; 36415 ×2; 87040; 87205; 87070; 86850; 83690; 84703; 85025 ×2; 87075; 80048; 80053; 81001; 88304 ×2; 74022; 76705; 74177; 47562; 44970; G0378 ×2; J2250; J0690; J1100; J3490 ×6; J3010 ×2; J1885; J1650; J1170; J2060; J3480 ×2; J0330; J2405; S0020; J7030; J2704; J2543; J0131; 790

== ENCOUNTER → 2017-12-16 | Outpatient (CLI) | payer MEDICAID ==
--- NOTE | 2017-12-16 11:58 | RADIOLOGY REPORT (SQ) ---
EXAM DESCRIPTION: U/S ABDOMEN COMPLETE W/O DOP COMPLETED DATE/TIME: 12/16/2017 11:32 am REASON FOR STUDY: R10.32 LEFT LOWER QUADRANT PAIN R10.32 LEFT LOWER QUADRANT PAIN COMPARISON: None. TECHNIQUE: Dynamic and static grayscale images acquired of the localized site of clinical concern an d recorded on PACS. Additional selected color Doppler and spectral images recorded. SITE OF CONCERN: Left lower quadrant LIMITATIONS: None. FINDINGS: SKIN AND SUBCUTANEOUS TISSUES: In the area of the incision in the left lower quadrant a sm all superficial anechoic area is identified measuring 5 x 5 x 4 mm in diameters. While this may only be related to postoperative changes such as a hematoma or seroma, the possibility of an abscess kerline ection cannot be excluded. There is adjacent soft tissue edematous changes. DEEP SOFT TISSUES/MUSCLES: No masses. No fluid collections. No edema. VASCULAR: No increased or decreased vascularity. No occlusions. OTHER: No other significant finding. IMPRESSION: Small superficial anechoic area is identified in the area of the incision in the left lo wer quadrant as noted above. Differential possibilities are as noted above. Other findings as noted above. TECHNICAL DOCUMENTATION: JOB ID: [id number] [employer]- All Rights Reserved Reading location - IP/workstation name: [email or web address]
== END ==
LOC: RAD 11:23
PROVIDERS: ATTEND Physician Assistant Surgical
DX: R10.32 Left lower quadrant pain (principal)
CPT/HCPCS: 76700

== ENCOUNTER 2018-12-21 04:33 | Emergency (ER) | payer MEDICAID ==
[2018-12-21 07:46] LABS: HEMATOCRIT 34.2 % (36.0-47.0); HEMOGLOBIN 10.7 g/dL (12.0-15.5); MEAN CORPUSCULAR HEMOGLOBIN 26.7 pg (27.0-33.4); MEAN CORPUSCULAR HGB CONC 31.2 g/dL (32.0-36.0); MEAN CORPUSCULAR VOLUME 86 fl (80-97); PLATELET COUNT 577 10^3/uL (150-450); RED CELL DISTRIBUTION WIDTH 16.1 % (11.5-14.0); WHITE BLOOD COUNT 24.4 10^3/uL (4.0-10.5)
[2018-12-21 07:47] LABS: ALANINE AMINOTRANSFERASE 49 U/L (9-52); ALKALINE PHOSPHATASE 90 U/L (38-126); ANION GAP 12 (5-19); ASPARTATE AMINO TRANSFERASE 25 U/L (14-36); BILIRUBIN,DIRECT 0.2 mg/dL (0.0-0.4); BILIRUBIN,TOTAL 0.5 mg/dL (0.2-1.3); BLOOD UREA NITROGEN 17 mg/dL (7-20); CALCIUM 9.3 mg/dL (8.4-10.2); CARBON DIOXIDE 26 mmol/L (22-30); CHLORIDE 105 mmol/L (98-107); GLUCOSE 114 mg/dL (75-110); LIPASE 1946.6 U/L (23-300); POTASSIUM 3.6 mmol/L (3.6-5.0); SODIUM 142.8 mmol/L (137-145); TOTAL PROTEIN 6.6 g/dL (6.3-8.2)
[2018-12-21 08:18] LABS: ABSOLUTE LYMPHOCYTES# (MANUAL) 1.2 10^3/uL (0.5-4.7); ABSOLUTE NEUTROPHILS# (MANUAL) 23.2 10^3/uL (1.7-8.2); BASOPHILS % (MANUAL) 0 % (0-2); EOSINOPHILS % (MANUAL) 0 % (0-6); LYMPHOCYTES % (MANUAL) 5 % (13-45); MONOCYTES % (MANUAL) 0 % (3-13); SEGMENTED NEUTROPHILS % (MAN) 95 % (42-78); TOTAL CELLS COUNTED 100
[2018-12-21 08:19] LABS: ANISOCYTOSIS 1+; OVALOCYTES SLIGHT; PLATELET COMMENT INCREASED; POIKILOCYTOSIS SLIGHT; POLYCHROMASIA SLIGHT
== END 2018-12-21 06:14 | disposition left against medical advice (07) ==
LOC: ER 04:33
DX: Z53.21 Procedure and treatment not carried out due to patient leaving prior to being seen by health care provider (principal); R10.9 Unspecified abdominal pain
CPT/HCPCS: 36415; 80053; 83690; 85025

== ENCOUNTER 2018-12-21 06:29 | Inpatient (IN) | payer MEDICAID ==
[2018-12-21] MEDS ORDERED: MORPHINE SULFATE 10 MG/ML INJ IV ONE (08:01)
[2018-12-21] MEDS ORDERED: NORMAL SALINE 1000 ML 1,000 ML IV ONE (08:01)
[2018-12-21] MEDS ORDERED: MORPHINE SULFATE 10 MG/ML INJ ONE (08:06)
[2018-12-21 08:19] LABS: APPEARANCE,URINE CLOUDY; BILIRUBIN,URINE MODERATE (NEGATIVE); COLOR,URINE AMBER; GLUCOSE, URINE 150 mg/dL (NEGATIVE); KETONES,URINE NEGATIVE (NEGATIVE); LEUKOCYTE ESTERASE,URINE NEGATIVE (NEGATIVE); NITRITE,URINE NEGATIVE (NEGATIVE); PROTEIN,URINE 30 mg/dL (NEGATIVE); URIC ACID CRYSTALS,URINE TOO NUMEROUS TO CNT /HPF; URINE SPECIFIC GRAVITY 1.039
[2018-12-21] MEDS ORDERED: ONDANSETRON HCL INJ/PF 4 MG/2 ML SDV IV ONE (09:09)
[2018-12-21] MEDS ORDERED: HYDROMORPHONE HCL INJ/PF 2 MG/ML AMPULE IV ONE ×2 (09:09→11:12)
--- NOTE | 2018-12-21 09:14 | ER Document Report ---
ED General - General TRAVEL OUTSIDE OF THE [place] IN LAST 30 DAYS: No - General Chief Complaint: Abdominal Pain Stated Complaint: ABDOMINAL PAIN Time Seen by Provider: 12/21/18 08:45 - HPI Notes: Patient is a 28-year-old female with a history of cholecystectomy and appendectomy who presents to the emergency department complaining of epigastric abdominal pain that does not radiate that is moderate to severe nature. Patient states that this pain started in the middle the night and has been persistent since. Patient states that she has had associated nausea and vomiting. She still urinating normally and having normal bowel movements. She has not had any vaginal discharge, odor, or bleeding. Denies drug allergies. Denies any headache, fever, neck pain, URI, sore throat, chest pain, palpitations, syncope, cough, shortness of breath, wheeze, dyspnea, diarrhea, urinary retention, dysuria, hematuria, back pain, or rash. She did drink a "small amount" of etoh last night. (GIANNA ANDUJAR) - Related Data Allergies/Adverse Reactions: No Known Allergies Allergy (Verified 11/03/17 02:48) Past Medical History - Social History Smoking Status: Unknown if Ever Smoked Family History: Reviewed & Not Pertinent Patient has suicidal ideation: No Patient has homicidal ideation: No - Past Medical History Cardiac Medical History: Reports: Hx Hypertension - gestational hypertension with first but has since resolved. Denies: Hx Heart Murmur Neurological Medical History: Denies: Hx Cerebrovascular Accident, Hx Seizures Renal/ Medical History: Denies: Hx Peritoneal Dialysis Psychiatric Medical History: Reports: Hx Depression - since 14 years years old Denies: Hx Bipolar Disorder, Hx Post Traumatic Stress Disorder, Hx Schizophrenia Past Surgical History: Reports: Hx Abdominal Surgery - gastric bypass surg - 2012, Hx Section - 2 C- sections; one before and one after the gastric bypass., Hx Gastric Bypass Surgery - done 5 yrs ago at [facility] here in [place]., Hx Orthopedic Surgery - Right Ankle ORIF - Immunizations Hx Diphtheria, Pertussis, Tetanus Vaccination: Yes Review of Systems - Review of Systems -: Yes All other systems reviewed and negative Physical Exam - Vital signs Vitals: Pulse Resp BP Pulse Ox 99 24 H 148/74 H 98 12/21/18 06:42 12/21/18 06:42 12/21/18 06:42 12/21/18 06:42 - Notes Notes: PHYSICAL EXAMINATION: GENERAL: no resp acute distress. Pt does appear to be in discomfort holding her upper abd and tearful. HEAD: Atraumatic, normocephalic. EYES: Pupils equal round and reactive to light, extraocular movements intact, sclera anicteric, conjunctiva are normal. ENT: Nares patent and without discharge. oropharynx clear without exudates. No tonsilar hypertrophy or erythema. Moist mucous membranes. NECK: Normal range of motion, supple without lymphadenopathy LUNGS: Breath sounds clear to auscultation bilaterally and equal. No wheezes rales or rhonchi. HEART: Regular rate and rhythm without murmurs, rubs, gallops. ABDOMEN: Soft, nondistended abdomen. No guarding, no rebound. Normal bowel sounds present. No CVA tenderness bilaterally. + tenderness Epigastrum to palp. Musculoskeletal: FROM to passive/active. Strength 5+/5. Extremities: No cyanosis, clubbing, or edema b/l. Peripheral pulses 2+. Capillary refill less than 3 seconds. NEUROLOGICAL: Normal speech, normal gait. PSYCH: crying SKIN: Warm, Dry, normal turgor, no rashes or lesions noted. (GIANNA ANDUJAR) Course - Re-evaluation Re-evalutation: 12/21/18 11:35 I personally and independently obtained patient history and examined the patient and have reviewed the APC's note, reviewed, discussed and agree with their assessment and plan. MEDICAL DECISION MAKING: Patient has diffuse abdominal tenderness but worse in the epigastric region with mild peritoneal irritation and no rigidity. She has been receiving Dilaudid with some improvement of symptoms but still appears uncomfortable. I have reviewed her chart and I agree with current plan of care. Dr. Santiago will evaluate this patient in the ER and she will receive upper GI series with contrast. Patient receiving antibiotics. Currently hemodynamically stable Please review detail APC documentation. *Note is created using voice recognition software and may contain spelling, syntax or grammatical errors. (MARCELINO ALVARADO) 12/21/18 11:12 Pt has leukocytosis at 24k and elevated lipase approx 1900. CT scan shows ascites vs fluid, ?issues with the bypass pouch or perforated ulcer. This could also still be pancreatitis. Reviewed with Dr. Alvarado and have spoken with Dr. Sharp (Rad) and Dr. Santiago. Dr. Santiago would like an upper GI series with contrast performed to evaluate for any leak. We will also start zosyn. 12/21/18 13:11 Upper GI series obtained and was unremarkable. We believe this to be pancreatitis at this time. Patient will be admitted and was accepted by Andrés Urbina [employer]IT OPERATOR to telemetry. Patient is in agreement with this plan. Vitals acceptable. (CON,GIANNA) - Vital Signs Vital signs: Temp Pulse Resp BP Pulse Ox 89 20 96/57 L 100 12/21/18 09:29 12/21/18 09:29 12/21/18 09:29 12/21/18 09:29 - Laboratory Laboratory results interpreted by me: 12/21/18 07:10 Urine Protein 30 H Urine Glucose (UA) 150 H Urine Bilirubin MODERATE H Urine Urobilinogen 4.0 H Urine Ascorbic Acid 40 H Discharge - Discharge Admitting Provider: Seema Urbina NP Unit Admitted: Telemetry - Discharge Clinical Impression: Upper abdominal pain Acute pancreatitis Qualifiers: Pancreatitis type: alcohol induced Acute pancreatitis complication: no infection or necrosis Qualified Code(s): K85.20 - Alcohol induced acute pancreatitis without necrosis or infection Condition: Stable Disposition: ADMITTED INPATIENT
[2018-12-21] MEDS: NORMAL SALINE 1000 ML 1,000 ML IV PRN ×4 (09:32→16:52)
--- NOTE | 2018-12-21 10:30 | RADIOLOGY REPORT (SQ) ---
EXAM DESCRIPTION: CT ABD/PELVIS WITH IV ONLY COMPLETED DATE/TIME: 12/21/2018 9:52 am REASON FOR STUDY: elevated lipase, epigastric pain COMPARISON: 2018. TECHNIQUE: CT scan of the abdomen and pelvis performed using helical scanning technique with dynamic intravenous contrast injection. No oral contrast. Images reviewed with lung, soft tissue, and bone windows. Reconstructed coronal and sagittal MPR images reviewed. Delayed images for evaluation of the urinary system also acquired. All images stored on PACS. All CT scanners at this facility use dose modulation, iterative reconstruction, and/or weight based d osing when appropriate to reduce radiation dose to as low as reasonably achievable (ALARA). [facility]: Dose Right [facility]: CareDose [facility]: Dose Right [facility]: Teradose 4D [facility]: SparCode CONTRAST TYPE AND DOSE: contrast/concentration: Isovue 350.00 mg/ml; Total Contrast Delivered: 98.0 ml; Total Saline Delivered: 68.0 ml RENAL FUNCTION: None required. The patient is less than 50 years old. RADIATION DOSE: CT Rad equipment meets quality standard of care and radiation dose reduction techniq ues were employed. CTDIvol: 17.9 - 20.3 mGy. DLP: 2164 mGy-cm.. LIMITATIONS: Patient's arms are positioned suboptimally. Associated streak artifact through the upp er abdomen. This mildly limits. Also mildly limiting are body habitus and mild motion artifact. FINDINGS: LOWER CHEST: No significant findings. No nodules or infiltrates. LIVER: No gross liver lesions. SPLEEN: Normal size. No focal lesions. PANCREAS: No masses. No significant calcifications. No adjacent inflammation or peripancreatic fluid collections. Pancreatic duct not dilated. GALLBLADDER: Surgically absent. ADRENAL GLANDS: No significant masses or asymmetry. RIGHT KIDNEY AND URETER: No solid masses. No significant calcification. No hydronephrosis or hydroure ter. LEFT KIDNEY AND URETER: No solid masses. No significant calcification. No hydronephrosis or hydrouret er. AORTA AND VESSELS: No aneurysm. No dissection. Renal arteries, SMA, celiac without stenosis. No mau s venous clot. Portal veins patent. RETROPERITONEUM: No retroperitoneal adenopathy, hemorrhage or masses. BOWEL AND PERITONEAL CAVITY: No overt bowel obstruction. Probable prior gastric bypass. Moderate -l arge amount of proximal colonic stool. Ascites is present with perihepatic, perisplenic and pelvic f luid. Grossly mild -moderate. As assessed, fluid looks relatively simple with low Hounsfield units. APPENDIX: Surgically absent. PELVIS: Pelvic fluid is present. Bladder looks normal. Potential right ovarian cyst. Fallopian tub e dilation on this side not excluded. IUD has been removed from the uterus. ABDOMINAL WALL: No masses. No hernias. BONES: No significant or acute findings. OTHER: No other significant finding. IMPRESSION: 1. Since the prior study of 2018, significant ascites has developed. This looks like relatively simp le fluid, not clearly pneumoperitoneum based on today's CT. Indeterminate etiology, however. 2. Complex appearing left ovarian region cyst. Poorly evaluated. Pelvic ultrasound if clinically wa rranted in a patient presenting with pain and ascites. TECHNICAL DOCUMENTATION: JOB ID: [id number] Quality ID # [id number]: Final reports with documentation of one or more dose reduction techniques (e.g., Au tomated exposure control, adjustment of the mA and/or kV according to patient size, use of iterative reconstruction technique) 2010 [employer]- All Rights Reserved Reading location - IP/workstation name: [email or web address]
[2018-12-21] MEDS ORDERED: PIPERACILLIN/TAZOBACTAM 3.375 GM VIAL IV ONE (11:11)
--- NOTE | 2018-12-21 12:56 | RADIOLOGY REPORT (SQ) ---
EXAM DESCRIPTION: UGI SERIES COMPLETED DATE/TIME: 12/21/2018 12:42 pm REASON FOR STUDY: eval for poss. leak, w. contrast PO COMPARISON: None. TECHNIQUE: Under fluoroscopic guidance, patient ingested 40 mL of half strength Omnipaque 350. Fluor oscopic spot images and routine radiographic images acquired and stored on PACS. 12 MM BARIUM TABLET GIVEN: No LIMITATIONS: Patient was unable to tolerate supine positioning. All imaging was performed upright. FLUOROSCOPY TIME: FLUORO TIME: 1 minutes 9 series of digital fluoroscopic images saved to PACS. FINDINGS: NEUROMUSCULAR COORDINATION OF SWALLOW: Normal. No aspiration. ESOPHAGEAL MOTILITY: Normal peristalsis. No esophageal spasm. ESOPHAGEAL MUCOSA: Normal mucosa without masses or ulceration. GASTRO-ESOPHAGEAL JUNCTION: No hiatal hernia or reflux. STOMACH: Post gastric bypass. There is prompt emptying of the fundal gastric pouch into the efferren t limb. We were unable to track the oral contrast all way to the Stone loop, patient refused further imaging GASTRIC OUTLET: No delay in emptying. DUODENAL BULB: Not visualized DUODENUM: Not visualized PROXIMAL JEJUNUM: Limited visualization, prompt emptying of the fundal gastric pouch into the efferre nt limb of the gastric bypass. NON-GI TRACT STRUCTURES: No significant finding. OTHER: Report discussed with Reji Boyer. IMPRESSION: No gross evidence of Omnipaque contrast leak from gastric bypass COMMENT: Quality ID [id number]: Final reports for procedures using fluoroscopy that document radiation exp osure indices, or exposure time and number of fluorographic images (if radiation exposure indices are not available) TECHNICAL DOCUMENTATION: JOB ID: [id number] [employer]- All Rights Reserved Reading location - IP/workstation name: [email or web address]
[2018-12-21 13:04] LABS: URINE BARBITURATES SCREEN NEGATIVE; URINE BENZODIAZEPINES SCREEN NEGATIVE; URINE COCAINE SCREEN NEGATIVE; URINE MARIJUANA (THC) SCREEN UNCONFIRMED POSITIVE; URINE METHADONE SCREEN NEGATIVE; URINE PHENCYCLIDINE SCREEN NEGATIVE
[2018-12-21] MEDS ORDERED: KETOROLAC TROMETHAMINE INJ/PF 30 MG/1 ML SDV IV ONE (13:04)
--- NOTE | 2018-12-21 13:40 | PDOC CONSULTATION ---
Consultation Consult Date: 12/21/18 Consult reason:: abdominal pain, hx of gastric bypass History of Present Illness History of Present Illness: DEA MUNGUIA is a 28 year old female with a history of cholecystectomy and appendectomy, gastric bypass, who presents to the emergency department complaining of epigastric abdominal pain that does not radiate that is moderate to severe nature. Patient states that this pain started in the middle the night and has been persistent since. Patient states that she has had associated nausea and vomiting. She still urinating normally and having normal bowel movements. She has not had any vaginal discharge, odor, or bleeding. Denies drug allergies. Denies any headache, fever, neck pain, URI, sore throat, chest pain, palpitations, syncope, cough, shortness of breath, wheeze, dyspnea, diarrhea, urinary retention, dysuria, hematuria, back pain, or rash. she initially state she drinks some wine sometime and then admits to a bottle of wine at a time once or twice a week and also harder alcohol. has a previous hx of pancreatitis Past Medical History Cardiac Medical History: Reports: Hypertension - gestational hypertension with first but has since resolved. Denies: Heart Murmur Pulmonary Medical History: Reports: None EENT Medical History: Reports: None Neurological Medical History: Reports: None, Other - no hx of seizures Denies: Seizures Endocrine Medical History: Reports: None, Other - no cold or heat intolerance Renal/ Medical History: Reports: None Malignancy Medical History: Reports: None GI Medical History: Reports: Other - hx of gatric bypass question of previous ulcer Psychiatric Medical History: Reports: Depression - since 14 years years old Denies: Bipolar Disorder, Post Traumatic Stress Disorder Traumatic Medical History: Reports: None Hematology: Reports: Other - no bleeding hx Infectious Medical History: Reports: None Past Surgical History Past Surgical History: Reports: Section - 2 C- sections; one before and one after the gastric bypass., Gastric Bypass Surgery - done 5 yrs ago at [facility] here in [place]., Orthopedic Surgery - Right Ankle ORIF Social History Smoking Status: Unknown if Ever Smoked Family History Family History: Reviewed & Not Pertinent Parental Family History Reviewed: No Children Family History Reviewed: NA Sibling(s) Family History Reviewed.: NA Medication/Allergy Home Medications: Docusate Sodium [Colace 100 mg Capsule] 100 mg PO BID #20 capsule 11/04/17 Hydrocodone/Acetaminophen [Vicodin Hp 10-300 mg Tablet] 1 tab PO Q6HP PRN #40 tablet 11/04/17 Allergies/Adverse Reactions: No Known Allergies Allergy (Verified 11/03/17 02:48) Review of Systems Constitutional: ABSENT: chills, fever(s), headache(s), weight gain, weight loss Eyes: ABSENT: visual disturbances Nose, Mouth, and Throat: PRESENT: other - no c/o sore throat Breasts: PRESENT: as per HPI, other - no breast masses Cardiovascular: PRESENT: other - no chest pain Respiratory: PRESENT: other - no cough Gastrointestinal: PRESENT: other - c/o abd pain with radiation to her back Genitourinary: PRESENT: other Musculoskeletal: PRESENT: other - no muscle weakness Neurological: PRESENT: other - no complaints Psychiatric: PRESENT: anxiety Endocrine: PRESENT: other - no cold or heat intolerance. Hematologic/Lymphatic: ABSENT: easy bleeding, easy bruising Physical Exam Vital Signs: Temp Pulse Resp BP Pulse Ox 89 20 96/57 L 100 12/21/18 09:29 12/21/18 09:29 12/21/18 09:29 12/21/18 09:29 Intake & Output 12/20/18 12/21/18 12/22/18 06:59 06:59 06:59 Intake Total 3000 Balance 3000 Weight 86.6 kg 86.6 kg General appearance: PRESENT: obese, severe distress Head exam: PRESENT: normocephalic Eye exam: PRESENT: EOMI Mouth exam: PRESENT: dry mucosa Neck exam: PRESENT: full ROM Respiratory exam: PRESENT: clear to auscultation freddie Cardiovascular exam: PRESENT: RRR Pulses: PRESENT: +2 pedal pulses bilateral GI/Abdominal exam: PRESENT: guarding, soft, tenderness Rectal exam: PRESENT: deferred Gentrourinary exam: PRESENT: other Extremities exam: PRESENT: full ROM Musculoskeletal exam: PRESENT: full ROM Neurological exam: PRESENT: alert, awake, oriented to person, oriented to place, oriented to time Psychiatric exam: PRESENT: anxious Skin exam: PRESENT: dry Results Laboratory Results: 12/21/18 12/21/18 07:10 09:15 Lactic Acid 0.9 Urine Color DESTIN Urine Appearance CLOUDY Urine pH 5.0 Ur Specific [place] 1.039 Urine Protein 30 H Urine Glucose (UA) 150 H Urine Ketones NEGATIVE Urine Blood NEGATIVE Urine Nitrite NEGATIVE Ur Leukocyte Esterase NEGATIVE Urine WBC (Auto) 6 Urine RBC (Auto) 2 Impressions: Abdomen/Pelvis CT 12/21/18 09:09 IMPRESSION: 1. Since the prior study of 2018, significant ascites has developed. This looks like relatively simple fluid, not clearly pneumoperitoneum based on today's CT. Indeterminate etiology, however. 2. Complex appearing left ovarian region cyst. Poorly evaluated. Pelvic ultrasound if clinically warranted in a patient presenting with pain and ascites. Upper GI Series 12/21/18 11:36 IMPRESSION: No gross evidence of Omnipaque contrast leak from gastric bypass Assessment & Plan - Diagnosis (3) Acute pancreatitis Qualifiers: Pancreatitis type: alcohol induced Acute pancreatitis complication: no infection or necrosis Qualified Code(s): K85.20 - Alcohol induced acute pancreatitis without necrosis or infection (4) Abdominal pain Qualifiers: Abdominal location: generalized Qualified Code(s): R10.84 - Generalized abdominal pain - Plan Summary Plan Summary: Impression Acute pancreatitis. Etiology currently unclear however patient does have a significant history of EtOH use after further questioning she status post cholecystectomy Doubt leak from gastrojejunostomy. Patient has had an upper GI which shows no extravasation of contrast material. Recommend admission and treatment of her acute pancreatitis. We will continue to follow.
[2018-12-21] MEDS ORDERED: FENTANYL CITRATE INJ/PF 100 MCG/2 ML AMPUL IV PRN (14:03)
[2018-12-21] MEDS ORDERED: ACETAMINOPHEN 325 MG TABLET PO PRN (14:44)
[2018-12-21] MEDS: HYDROMORPHONE HCL INJ/PF 2 MG/ML AMPULE IV PRN (19:31)
[2018-12-21] MEDS: ONDANSETRON 4 MG TAB.RAPDIS PO PRN (19:33)
[2018-12-21] MEDS ORDERED: MAGNESIUM HYDROXIDE SUSP 30 ML UDCUP PO PRN (19:49)
--- NOTE | 2018-12-21 20:20 | PDOC H&P ---
History of Present Illness Admission Date/PCP: 12/21/18 13:20 Patient complains of: Abdominal pain History of Present Illness: DEA MUNGUIA is a 28 year old female with a PMH of gestational HTN, depression, cholecystectomy, appendectomy, gastric bypass. The patient presented to [facility] emergency department with abdominal pain. The patient admits to drinking 1 bottle of wine multiple times per week. The patient endorses upper abdominal pain with associated nausea and vomiting. She endorses having normal bowel movements, able to pass gas, no symptoms of dysuria. Upon arrival to the emergency department, CT abdomen/pelvis reveals ascites with perihepatic, perisplenic pelvic fluid. Moderate to large amount of proximal colonic stool. Additionally, a complex appearing left ovarian cyst is noted but poorly evaluated. Laboratory studies indicative of leukocytosis (WBC 25), anemia (Hgb 10), thrombocytosis (platelets 577), elevated lipase (1946), UTOX was positive for marijuana and amphetamines (patient takes adderall). Upon assessment, the patient is awake and oriented. She is writhing in pain. She endorses upper abdominal pain, the patient states it radiates across the upper quadrants. It is constant in nature with intermittent breakthrough pain. The patient's abdomen is TTP, bowel sounds are present. Abdomen is nondistended. Patient endorses anorexia but states she does feel thirsty. Plan to admit to the hospitalist service for acute pancreatitis. Past Medical History Cardiac Medical History: Reports: Hypertension - gestational hypertension with first but has since resolved. Denies: Heart Murmur Pulmonary Medical History: Reports: None EENT Medical History: Reports: None, Other - no bleeding hx Neurological Medical History: Reports: None, Other - no hx of seizures Denies: Seizures Endocrine Medical History: Reports: None, Other - no cold or heat intolerance Renal/ Medical History: Reports: None Malignancy Medical History: Reports: None GI Medical History: Reports: Other - hx of gatric bypass question of previous ulcer Psychiatric Medical History: Reports: Depression - since 14 years years old Denies: Bipolar Disorder, Post Traumatic Stress Disorder Traumatic Medical History: Reports: None Hematology: Reports: Other - no bleeding hx Infectious Medical History: Reports: None Past Surgical History Past Surgical History: Reports: Section - 2 C- sections; one before and one after the gastric bypass., Gastric Bypass Surgery - done 5 yrs ago at [facility] here in [place]., Orthopedic Surgery - Right Ankle ORIF Social History Information Source: Patient Lives with: Family Smoking Status: Unknown if Ever Smoked Frequency of Alcohol Use: Heavy Hx Recreational Drug Use: Yes Drugs: Marijuana Hx Prescription Drug Abuse: Yes - Advance Directive Resuscitation Status: Full Code Family History Family History: Reviewed & Not Pertinent Parental Family History Reviewed: Yes Children Family History Reviewed: Unknown Sibling(s) Family History Reviewed.: Unknown Medication/Allergy Home Medications: Cyanocobalamin (Vitamin B-12) [Vitamin B-12 Inj 1000 Mcg/1 ml Vial] 1,000 mcg IM .MONTHLY 12/21/18 Dextroamphetamine/Amphetamine [Adderall 20 mg Tablet] 20 mg PO BID 12/21/18 Ergocalciferol (Vitamin D2) [Drisdol 50,000 Unit (1.25MG) Capsule] 50,000 unit PO MO@1000 12/21/18 Hydroxyzine HCl [Atarax 25 mg Tablet] 1 tab PO QIDP PRN 12/21/18 Prednisone [Deltasone 20 mg Tablet] 20 mg PO ASDIR 12/21/18 Allergies/Adverse Reactions: No Known Allergies Allergy (Verified 11/03/17 02:48) Review of Systems Constitutional: ABSENT: fever(s), night sweats Eyes: ABSENT: visual disturbances Ears: ABSENT: hearing changes Nose, Mouth, and Throat: ABSENT: headache(s) Cardiovascular: ABSENT: edema Respiratory: ABSENT: cough Gastrointestinal: PRESENT: abdominal pain, nausea Genitourinary: ABSENT: dysuria Musculoskeletal: ABSENT: deformity Integumentary: ABSENT: rash Neurological: ABSENT: syncope, vertigo, weakness Psychiatric: ABSENT: anxiety, depression Endocrine: ABSENT: cold intolerance, heat intolerance Hematologic/Lymphatic: ABSENT: easy bruising Physical Exam Vital Signs: Temp Pulse Resp BP Pulse Ox 89 20 96/57 L 100 12/21/18 09:29 12/21/18 09:29 12/21/18 09:29 12/21/18 09:29 Intake & Output 12/20/18 12/21/18 12/22/18 06:59 06:59 06:59 Intake Total 3000 Balance 3000 Weight 86.6 kg 86.6 kg General appearance: PRESENT: obese Head exam: PRESENT: atraumatic Eye exam: PRESENT: conjunctiva pink, PERRLA Mouth exam: PRESENT: moist, tongue midline Teeth exam: PRESENT: poor dentation Neck exam: PRESENT: full ROM Respiratory exam: PRESENT: clear to auscultation freddie, symmetrical, unlabored Cardiovascular exam: PRESENT: RRR Pulses: PRESENT: normal radial pulses, normal dorsalis pedis pul Vascular exam: PRESENT: normal capillary refill GI/Abdominal exam: PRESENT: guarding, hypoactive bowel sounds, soft, tenderness. ABSENT: distended, firm Rectal exam: PRESENT: deferred Extremities exam: PRESENT: full ROM Musculoskeletal exam: PRESENT: ambulatory, full ROM Neurological exam: PRESENT: alert, awake, oriented to person, oriented to place, oriented to time, oriented to situation Psychiatric exam: PRESENT: appropriate affect Skin exam: PRESENT: dry, intact, normal color Results Laboratory Results: 12/21/18 12/21/18 07:10 09:15 Lactic Acid 0.9 Urine Color DESTIN Urine Appearance CLOUDY Urine pH 5.0 Ur Specific [place] 1.039 Urine Protein 30 H Urine Glucose (UA) 150 H Urine Ketones NEGATIVE Urine Blood NEGATIVE Urine Nitrite NEGATIVE Ur Leukocyte Esterase NEGATIVE Urine WBC (Auto) 6 Urine RBC (Auto) 2 Impressions: Abdomen/Pelvis CT 12/21/18 09:09 IMPRESSION: 1. Since the prior study of 2018, significant ascites has developed. This looks like relatively simple fluid, not clearly pneumoperitoneum based on today's CT. Indeterminate etiology, however. 2. Complex appearing left ovarian region cyst. Poorly evaluated. Pelvic ultrasound if clinically warranted in a patient presenting with pain and ascites. Upper GI Series 12/21/18 11:36 IMPRESSION: No gross evidence of Omnipaque contrast leak from gastric bypass Status: Imported from PACS Assessment and Plan - Diagnosis (1) Acute pancreatitis Qualifiers: Pancreatitis type: alcohol induced Acute pancreatitis complication: no infection or necrosis Qualified Code(s): K85.20 - Alcohol induced acute pancreatitis without necrosis or infection Is this a current diagnosis for this admission?: Yes Plan: Likely stemming from chronic EtOH use History of cholecystectomy CT abdomen/pelvis reveals ascites with perihepatic, perisplenic pelvic fluid Upper GI series shows no extravasation of contrast material Lipase 1900+ Patient endorses RUQ and LUQ abdominal pain (+) Nausea, denies vomiting PRN fentanyl IV for pain Clear liquid diet (2) Hx of gastric bypass Is this a current diagnosis for this admission?: Yes Plan: History of gastric bypass surgery Clear liquid diet (3) Constipation Is this a current diagnosis for this admission?: Yes Plan: Moderate stool burden seen on CT BID senna Daily miralax PRN milk of magnesia (4) Opiate use Is this a current diagnosis for this admission?: Yes Plan: According to [place] controlled substance database, patient has received narcotic prescriptions from 5 different providers within the last 2 years Multiple prescriptions filled for percocet or vicodin High suspicion for opiate abuse Use PRN narcotics sparingly, attempt alternative therapies (abdominal splinting, heat pack, etc.) PRN dilaudid IV - Time Time Spent with patient: 15-24 minutes Medications reviewed and adjusted accordingly: Yes Anticipated discharge: Home - Inpatient Certification Based on my medical assessment, after consideration of the patient's comorbidities, presenting symptoms, or acuity I expect that the services needed warrant INPATIENT care.: Yes I certify that my determination is in accordance with my understanding of Medicare's requirements for reasonable and necessary INPATIENT services [42 CFR 412.3e].: Yes
[2018-12-21] MEDS: PANTOPRAZOLE SODIUM 40 MG VIAL IV SCH (22:04)
[2018-12-21] MEDS: FENTANYL CITRATE INJ/PF 100 MCG/2 ML AMPUL IV PRN (22:05)
[2018-12-22] MEDS: ONDANSETRON HCL INJ/PF 4 MG/2 ML SDV IV PRN ×5 (00:04→21:40)
[2018-12-22] MEDS: LORAZEPAM INJ 2 MG/1 ML VIAL IV PRN ×3 (00:05→08:12)
[2018-12-22] MEDS: HYDROMORPHONE HCL INJ/PF 2 MG/ML AMPULE IV PRN ×5 (01:20→21:39)
[2018-12-22] MEDS: FENTANYL CITRATE INJ/PF 100 MCG/2 ML AMPUL IV PRN (06:22)
[2018-12-22 07:15] LABS: HEMATOCRIT 39.8 % (36.0-47.0); HEMOGLOBIN 12.4 g/dL (12.0-15.5); MEAN CORPUSCULAR HEMOGLOBIN 26.8 pg (27.0-33.4); MEAN CORPUSCULAR HGB CONC 31.2 g/dL (32.0-36.0); MEAN CORPUSCULAR VOLUME 86 fl (80-97); PLATELET COUNT 395 10^3/uL (150-450); RED BLOOD COUNT 4.64 10^6/uL (3.72-5.28); WHITE BLOOD COUNT 12.5 10^3/uL (4.0-10.5)
[2018-12-22 07:49] LABS: ALANINE AMINOTRANSFERASE 52 U/L (9-52); ALBUMIN 2.9 g/dL (3.5-5.0); ALKALINE PHOSPHATASE 89 U/L (38-126); ANION GAP 10 (5-19); ASPARTATE AMINO TRANSFERASE 67 U/L (14-36); BILIRUBIN,DIRECT 0.4 mg/dL (0.0-0.4); BLOOD UREA NITROGEN 21 mg/dL (7-20); CALCIUM 8.2 mg/dL (8.4-10.2); CARBON DIOXIDE 22 mmol/L (22-30); CHLORIDE 109 mmol/L (98-107); CHOLESTEROL 57.79 mg/dL (0-200); GLUCOSE 112 mg/dL (75-110); LIPASE 1380.2 U/L (23-300); PHOSPHORUS 4.2 mg/dL (2.5-4.5); POTASSIUM 4.1 mmol/L (3.6-5.0); SODIUM 140.8 mmol/L (137-145); TOTAL PROTEIN 5.3 g/dL (6.3-8.2); TRIGLYCERIDES 47 mg/dL (<150)
[2018-12-22 08:00] LABS: DIRECT LDL 38 mg/dL (<100)
[2018-12-22] MEDS ORDERED: ENOXAPARIN SODIUM INJ 30 MG/0.3 ML DISP.SYRIN ONE (08:57)
[2018-12-22] MEDS: PANTOPRAZOLE SODIUM 40 MG VIAL IV SCH ×2 (09:01→21:39)
[2018-12-22] MEDS: ENOXAPARIN SODIUM INJ 30 MG/0.3 ML DISP.SYRIN SUBCUT SCH (09:02)
[2018-12-22] MEDS: SENNOSIDES/DOCUSATE 8.6-50 MG 1 EACH TABLET PO SCH ×2 (09:10→17:21)
[2018-12-22] MEDS: POLYETHYLENE GLYCOL 3350 POWDER 17 GM/1 PACKET PO SCH (09:10)
[2018-12-22] MEDS: NORMAL SALINE 1000 ML 1,000 ML IV PRN ×2 (10:13→20:46)
--- NOTE | 2018-12-22 13:48 | PDOC PROGRESS REPORT ---
Subjective Progress Note for:: 12/22/18 Subjective:: Patient complaining of pain nausea. She is extremely agitated. She is received narcotics, anti-medics, and benzodiazepines since admission. She cannot determine whether she feels better or not. Reason For Visit: PANCREATITIS Physical Exam Vital Signs: Temp Pulse Resp BP Pulse Ox 98.7 F 120 H 17 115/71 97 12/22/18 02:00 12/22/18 02:00 12/22/18 02:00 12/22/18 02:00 12/22/18 02:00 Intake & Output 12/21/18 12/22/18 12/23/18 06:59 06:59 06:59 Intake Total 4395 Balance 4395 Weight 86.6 kg 86.6 kg General appearance: PRESENT: other - Patient extremely agitated itching scratching; accompanied by her mother GI/Abdominal exam: PRESENT: other - Abdomen examined. Operative scars consistent with previous surgery. There is no rigidity. Results Laboratory Results: 12/22/18 05:45 12/22/18 05:45 12/22/18 12/22/18 12/22/18 05:45 05:45 05:45 WBC 12.5 H RBC 4.64 Hgb 12.4 Hct 39.8 MCV 86 MCH 26.8 L MCHC 31.2 L RDW 16.0 H Plt Count 395 Sodium 140.8 Potassium 4.1 Chloride 109 H Carbon Dioxide 22 Anion Gap 10 BUN 21 H Creatinine 0.64 Est GFR ( Amer) > 60 Est GFR (Non-Af Amer) > 60 Glucose 112 H Calcium 8.2 L Phosphorus 4.2 Magnesium 1.9 Total Bilirubin 1.0 AST 67 H ALT 52 Alkaline Phosphatase 89 Total Protein 5.3 L Albumin 2.9 L Triglycerides 47 Cholesterol 57.79 LDL Cholesterol Direct 38 VLDL Cholesterol 9.0 L HDL Cholesterol 25 L Lipase 1380.2 H TSH 0.57 Impressions: Abdomen/Pelvis CT 12/21/18 09:09 IMPRESSION: 1. Since the prior study of 2018, significant ascites has developed. This looks like relatively simple fluid, not clearly pneumoperitoneum based on today's CT. Indeterminate etiology, however. 2. Complex appearing left ovarian region cyst. Poorly evaluated. Pelvic ultrasound if clinically warranted in a patient presenting with pain and ascites. Upper GI Series 12/21/18 11:36 IMPRESSION: No gross evidence of Omnipaque contrast leak from gastric bypass Assessment & Plan - Diagnosis (1) Acute pancreatitis Qualifiers: Pancreatitis type: alcohol induced Acute pancreatitis complication: no infection or necrosis Qualified Code(s): K85.20 - Alcohol induced acute pancreatitis without necrosis or infection Is this a current diagnosis for this admission?: Yes Plan: Impression: ACute pancreatitis and complex patient due to multiple logical and s ubstance abuse related issues. Although white blood cell count and lipase have diminished, patient remains tachycardic. No Wilian criteria met Recommendation: 1. Continue fluid support; will increase IV fluid rate and bolus patient 2. I explained to the patient and her mother that the pancreatitis in the acute setting is unpredictable, and in this particular situation, it is unclear whethe r patient will improve or deteriorate. 3. We will continue to follow with the primary care team
[2018-12-23] MEDS: HYDROMORPHONE HCL INJ/PF 2 MG/ML AMPULE IV PRN ×6 (01:39→23:32)
[2018-12-23] MEDS: ONDANSETRON HCL INJ/PF 4 MG/2 ML SDV IV PRN ×6 (01:40→23:33)
[2018-12-23] MEDS: NORMAL SALINE 1000 ML 1,000 ML IV PRN ×3 (03:14→14:36)
[2018-12-23] MEDS: LORAZEPAM INJ 2 MG/1 ML VIAL IV PRN (03:19)
--- NOTE | 2018-12-23 07:57 | PDOC PROGRESS REPORT ---
Subjective Progress Note for:: 12/23/18 Subjective:: still agitiated, wants pain meds Reason For Visit: PANCREATITIS Physical Exam Vital Signs: Temp Pulse Resp BP Pulse Ox 98.0 F 118 H 18 106/63 97 12/23/18 03:56 12/23/18 07:00 12/23/18 03:56 12/23/18 03:56 12/23/18 03:56 Intake & Output 12/22/18 12/23/18 12/24/18 06:59 06:59 06:59 Intake Total 4395 2720 Balance 4395 2720 Weight 86.6 kg 85.2 kg General appearance: PRESENT: disheveled, mild distress Head exam: PRESENT: normocephalic Eye exam: PRESENT: EOMI Mouth exam: PRESENT: moist Neck exam: PRESENT: full ROM Respiratory exam: PRESENT: clear to auscultation freddie Cardiovascular exam: PRESENT: RRR Pulses: PRESENT: normal radial pulses, normal femoral pulses GI/Abdominal exam: PRESENT: diminished bowel sounds, tenderness Rectal exam: PRESENT: deferred Extremities exam: PRESENT: full ROM Musculoskeletal exam: PRESENT: full ROM Neurological exam: PRESENT: awake Psychiatric exam: PRESENT: anxious Results Laboratory Results: 12/22/18 05:45 12/22/18 05:45 12/22/18 12/22/18 05:45 05:45 Sodium 140.8 Potassium 4.1 Chloride 109 H Carbon Dioxide 22 Anion Gap 10 BUN 21 H Creatinine 0.64 Est GFR ( Amer) > 60 Est GFR (Non-Af Amer) > 60 Glucose 112 H Calcium 8.2 L Phosphorus 4.2 Magnesium 1.9 Total Bilirubin 1.0 AST 67 H ALT 52 Alkaline Phosphatase 89 Total Protein 5.3 L Albumin 2.9 L Triglycerides 47 Cholesterol 57.79 LDL Cholesterol Direct 38 VLDL Cholesterol 9.0 L HDL Cholesterol 25 L Lipase 1380.2 H TSH 0.57 Impressions: Abdomen/Pelvis CT 12/21/18 09:09 IMPRESSION: 1. Since the prior study of 2018, significant ascites has developed. This looks like relatively simple fluid, not clearly pneumoperitoneum based on today's CT. Indeterminate etiology, however. 2. Complex appearing left ovarian region cyst. Poorly evaluated. Pelvic ultrasound if clinically warranted in a patient presenting with pain and ascites. Upper GI Series 12/21/18 11:36 IMPRESSION: No gross evidence of Omnipaque contrast leak from gastric bypass Assessment & Plan - Diagnosis (1) Hx of gastric bypass Is this a current diagnosis for this admission?: Yes (3) Acute pancreatitis Qualifiers: Pancreatitis type: alcohol induced Acute pancreatitis complication: no infection or necrosis Qualified Code(s): K85.20 - Alcohol induced acute pancreatitis without necrosis or infection Is this a current diagnosis for this admission?: Yes (4) Abdominal pain Qualifiers: Abdominal location: generalized Qualified Code(s): R10.84 - Generalized abdominal pain Is this a current diagnosis for this admission?: Yes - Plan Summary Plan Summary: acute pancreatitis q etiol suspect etoh labs this am pending surgery will cont to aubrie.
[2018-12-23] MEDS: SENNOSIDES/DOCUSATE 8.6-50 MG 1 EACH TABLET PO SCH ×2 (09:58→17:44)
[2018-12-23] MEDS: POLYETHYLENE GLYCOL 3350 POWDER 17 GM/1 PACKET PO SCH (09:58)
[2018-12-23] MEDS: PANTOPRAZOLE SODIUM 40 MG VIAL IV SCH ×2 (10:19→21:51)
[2018-12-23] MEDS: ENOXAPARIN SODIUM INJ 30 MG/0.3 ML DISP.SYRIN SUBCUT SCH (10:21)
[2018-12-23 12:23] LABS: HEMATOCRIT 36.1 % (36.0-47.0); HEMOGLOBIN 11.2 g/dL (12.0-15.5); MEAN CORPUSCULAR HEMOGLOBIN 26.3 pg (27.0-33.4); MEAN CORPUSCULAR VOLUME 85 fl (80-97); PLATELET COUNT 580 10^3/uL (150-450); RED BLOOD COUNT 4.25 10^6/uL (3.72-5.28); RED CELL DISTRIBUTION WIDTH 15.9 % (11.5-14.0); WHITE BLOOD COUNT 15.3 10^3/uL (4.0-10.5)
[2018-12-23 12:51] LABS: ANION GAP 9 (5-19); BLOOD UREA NITROGEN 31 mg/dL (7-20); CALCIUM 8.3 mg/dL (8.4-10.2); CARBON DIOXIDE 20 mmol/L (22-30); CHLORIDE 108 mmol/L (98-107); GLUCOSE 98 mg/dL (75-110); LIPASE 1296.4 U/L (23-300); POTASSIUM 4.6 mmol/L (3.6-5.0); SODIUM 136.5 mmol/L (137-145)
[2018-12-23] MEDS: FENTANYL CITRATE INJ/PF 100 MCG/2 ML AMPUL IV PRN (21:56)
[2018-12-24] MEDS: LORAZEPAM INJ 2 MG/1 ML VIAL IV PRN ×2 (01:03→11:26)
[2018-12-24] MEDS: NORMAL SALINE 1000 ML 1,000 ML IV PRN ×3 (01:05→20:43)
[2018-12-24] MEDS: HYDROMORPHONE HCL INJ/PF 2 MG/ML AMPULE IV PRN ×5 (05:22→23:41)
[2018-12-24] MEDS: ONDANSETRON HCL INJ/PF 4 MG/2 ML SDV IV PRN ×4 (08:47→21:09)
[2018-12-24] MEDS: PANTOPRAZOLE SODIUM 40 MG VIAL IV SCH (09:30)
[2018-12-24] MEDS: ENOXAPARIN SODIUM INJ 30 MG/0.3 ML DISP.SYRIN SUBCUT SCH (09:33)
[2018-12-24] MEDS: POLYETHYLENE GLYCOL 3350 POWDER 17 GM/1 PACKET PO SCH (11:16)
[2018-12-24] MEDS: SENNOSIDES/DOCUSATE 8.6-50 MG 1 EACH TABLET PO SCH ×2 (11:16→17:10)
[2018-12-24] MEDS ORDERED: HYDROMORPHONE HCL INJ/PF 2 MG/ML AMPULE IV PRN (12:35)
[2018-12-24] MEDS ORDERED: HYDROMORPHONE HCL INJ/PF 2 MG/ML AMPULE IV ONE (13:00)
[2018-12-24] MEDS ORDERED: BISACODYL 10 MG SUPP.RECT PR ONE (16:39)
[2018-12-24] MEDS ORDERED: BISACODYL 5 MG TABEC PO PRN (16:39)
[2018-12-24] MEDS ORDERED: BISACODYL 5 MG TABEC PO ONE (16:39)
[2018-12-24] MEDS ORDERED: BISACODYL 10 MG SUPP.RECT PR PRN (16:39)
[2018-12-24 18:52] LABS: ABSOLUTE EOSINOPHILS # (AUTO) 0.5 10^3/uL (0.0-0.6); ABSOLUTE LYMPHOCYTES (AUTO) 0.7 10^3/uL (0.5-4.7); ABSOLUTE MONOCYTES (AUTO) 1.5 10^3/uL (0.1-1.4); ABSOLUTE NEUT (AUTO) 9.8 10^3/uL (1.7-8.2); BASOPHILS % (AUTO) 0.3 % (0-2); EOSINOPHILS % (AUTO) 3.9 % (0-6); HEMATOCRIT 31.4 % (36.0-47.0); HEMOGLOBIN 9.9 g/dL (12.0-15.5); MEAN CORPUSCULAR HEMOGLOBIN 26.3 pg (27.0-33.4); MEAN CORPUSCULAR HGB CONC 31.5 g/dL (32.0-36.0); MEAN CORPUSCULAR VOLUME 84 fl (80-97); MONOCYTES % (AUTO) 11.8 % (3-13); PLATELET COUNT 542 10^3/uL (150-450); RED BLOOD COUNT 3.76 10^6/uL (3.72-5.28); RED CELL DISTRIBUTION WIDTH 15.9 % (11.5-14.0); TOTAL CELLS COUNTED % (AUTO) 100 %; WHITE BLOOD COUNT 12.6 10^3/uL (4.0-10.5)
--- NOTE | 2018-12-24 21:06 | PDOC PROGRESS REPORT ---
Subjective Progress Note for:: 12/22/18 Subjective:: Patient complaining of discomfort. Reason For Visit: PANCREATITIS Physical Exam Vital Signs: Temp Pulse Resp BP Pulse Ox 98.9 F 123 H 16 141/85 H 95 12/24/18 15:55 12/24/18 15:55 12/24/18 15:55 12/24/18 15:55 12/24/18 15:55 Intake & Output 12/23/18 12/24/18 12/25/18 06:59 06:59 06:59 Intake Total 2720 2427 2482 Balance 2720 2427 2482 Weight 85.2 kg 96.9 kg General appearance: PRESENT: cooperative, mild distress, obese, well-developed Head exam: PRESENT: atraumatic, normocephalic Eye exam: PRESENT: conjunctiva pink. ABSENT: scleral icterus Ear exam: PRESENT: normal external ear exam Mouth exam: PRESENT: moist, tongue midline Respiratory exam: PRESENT: clear to auscultation freddie, symmetrical, unlabored. ABSENT: accessory muscle use, rales, rhonchi, tachypnea, wheezes Cardiovascular exam: PRESENT: +S1, +S2, tachycardia GI/Abdominal exam: PRESENT: distended, normal bowel sounds, soft, tenderness - Diffuse Rectal exam: PRESENT: deferred Gentrourinary exam: ABSENT: indwelling catheter Extremities exam: PRESENT: other - Nonpitting edema both legs Neurological exam: PRESENT: alert, awake, oriented to person, oriented to place, oriented to time, oriented to situation Psychiatric exam: PRESENT: appropriate affect - Affect reflects her current discomfort. ABSENT: agitated, anxious Focused psych exam: ABSENT: delusional, restlessness Skin exam: PRESENT: other - Large number of tattoos Results Laboratory Results: 12/24/18 18:21 12/23/18 11:30 12/24/18 18:21 WBC 12.6 H RBC 3.76 Hgb 9.9 L Hct 31.4 L MCV 84 MCH 26.3 L MCHC 31.5 L RDW 15.9 H Plt Count 542 H Seg Neutrophils % 78.0 Lymphocytes % 6.0 L Monocytes % 11.8 Eosinophils % 3.9 Basophils % 0.3 Absolute Neutrophils 9.8 H Absolute Lymphocytes 0.7 Absolute Monocytes 1.5 H Absolute Eosinophils 0.5 Absolute Basophils 0.0 Impressions: Abdomen/Pelvis CT 12/21/18 09:09 IMPRESSION: 1. Since the prior study of 2018, significant ascites has developed. This looks like relatively simple fluid, not clearly pneumoperitoneum based on today's CT. Indeterminate etiology, however. 2. Complex appearing left ovarian region cyst. Poorly evaluated. Pelvic ultrasound if clinically warranted in a patient presenting with pain and ascites. Upper GI Series 12/21/18 11:36 IMPRESSION: No gross evidence of Omnipaque contrast leak from gastric bypass Assessment and Plan - Diagnosis (1) Acute pancreatitis Qualifiers: Pancreatitis type: alcohol induced Acute pancreatitis complication: no infection or necrosis Qualified Code(s): K85.20 - Alcohol induced acute pancreatitis without necrosis or infection Is this a current diagnosis for this admission?: Yes Plan: Lipase is 1300. We will continue n.p.o. status. (2) Opiate use Is this a current diagnosis for this admission?: Yes Plan: Still complaining of discomfort/pain. Will be cautious with opioid use. (3) Abdominal pain Qualifiers: Abdominal location: generalized Qualified Code(s): R10.84 - Generalized abdominal pain Is this a current diagnosis for this admission?: Yes Plan: Patient states that the pain is no better. She is still n.p.o. (4) Constipation Is this a current diagnosis for this admission?: Yes Plan: CT scan revealed feces in the distal colon. Will start stool softeners. (5) Ovarian cyst Qualifiers: Laterality: left Qualified Code(s): N83.202 - Unspecified ovarian cyst, left side Is this a current diagnosis for this admission?: Yes Plan: Complex appearing left ovarian cyst. Consider gynecology evaluation. - Time Time Spent with patient: 15-24 minutes Medications reviewed and adjusted accordingly: Yes
--- NOTE | 2018-12-24 21:11 | PDOC PROGRESS REPORT ---
Subjective Progress Note for:: 12/23/18 Subjective:: Pain is worse today. She reports that her breathing is more difficult. Reason For Visit: PANCREATITIS Physical Exam Vital Signs: Temp Pulse Resp BP Pulse Ox 98.9 F 123 H 16 141/85 H 95 12/24/18 15:55 12/24/18 15:55 12/24/18 15:55 12/24/18 15:55 12/24/18 15:55 Intake & Output 12/23/18 12/24/18 12/25/18 06:59 06:59 06:59 Intake Total 2720 2427 2482 Balance 2720 2427 2482 Weight 85.2 kg 96.9 kg General appearance: PRESENT: cooperative, mild distress - Mild to moderate distress Head exam: PRESENT: atraumatic, normocephalic Eye exam: PRESENT: conjunctiva pink. ABSENT: scleral icterus Ear exam: PRESENT: normal external ear exam Respiratory exam: PRESENT: clear to auscultation freddie, rales, symmetrical, other - Decreased inspiratory phase. ABSENT: rhonchi, wheezes Cardiovascular exam: PRESENT: +S1, +S2, tachycardia GI/Abdominal exam: PRESENT: distended, hypoactive bowel sounds, tenderness Neurological exam: PRESENT: alert, awake, oriented to person, oriented to place, oriented to time, oriented to situation, CN II-XII grossly intact Psychiatric exam: PRESENT: anxious, appropriate affect - Affect reflects her discomfort. ABSENT: agitated Focused psych exam: ABSENT: delusional, restlessness Results Laboratory Results: 12/24/18 18:21 12/23/18 11:30 12/24/18 18:21 WBC 12.6 H RBC 3.76 Hgb 9.9 L Hct 31.4 L MCV 84 MCH 26.3 L MCHC 31.5 L RDW 15.9 H Plt Count 542 H Seg Neutrophils % 78.0 Lymphocytes % 6.0 L Monocytes % 11.8 Eosinophils % 3.9 Basophils % 0.3 Absolute Neutrophils 9.8 H Absolute Lymphocytes 0.7 Absolute Monocytes 1.5 H Absolute Eosinophils 0.5 Absolute Basophils 0.0 Impressions: Abdomen/Pelvis CT 12/21/18 09:09 IMPRESSION: 1. Since the prior study of 2018, significant ascites has developed. This looks like relatively simple fluid, not clearly pneumoperitoneum based on today's CT. Indeterminate etiology, however. 2. Complex appearing left ovarian region cyst. Poorly evaluated. Pelvic ultrasound if clinically warranted in a patient presenting with pain and ascites. Upper GI Series 12/21/18 11:36 IMPRESSION: No gross evidence of Omnipaque contrast leak from gastric bypass Assessment and Plan - Diagnosis (1) Acute pancreatitis Qualifiers: Pancreatitis type: alcohol induced Acute pancreatitis complication: no infection or necrosis Qualified Code(s): K85.20 - Alcohol induced acute pancreatitis without necrosis or infection Is this a current diagnosis for this admission?: Yes Plan: Lipase only slightly decreased. Ascites not resolving. 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 Continue n.p.o. status. (2) Opiate use Is this a current diagnosis for this admission?: Yes Plan: We will try to use opiates sparingly. At this point her pain appears to be increasing. Reassess tomorrow and consider increased opiate dosing. (3) Abdominal pain Qualifiers: Abdominal location: generalized Qualified Code(s): R10.84 - Generalized abdominal pain Is this a current diagnosis for this admission?: Yes Plan: Not improved. If there continues to be no progress consider repeat scanning. (4) Constipation Is this a current diagnosis for this admission?: Yes Plan: No significant effect from stool softeners yet. (5) Ovarian cyst Qualifiers: Laterality: left Qualified Code(s): N83.202 - Unspecified ovarian cyst, left side Is this a current diagnosis for this admission?: Yes Plan: Continue to monitor and consider RETAIL MANAGEMENT KEYHOLDER consult. - Time Time Spent with patient: 15-24 minutes Medications reviewed and adjusted accordingly: Yes
--- NOTE | 2018-12-24 21:16 | PDOC PROGRESS REPORT ---
Subjective Progress Note for:: 12/24/18 Subjective:: Patient clearly in more discomfort today. Reports difficulty breathing which could certainly be due to the increased abdominal distention. Reason For Visit: PANCREATITIS Physical Exam Vital Signs: Temp Pulse Resp BP Pulse Ox 98.9 F 123 H 16 141/85 H 95 12/24/18 15:55 12/24/18 15:55 12/24/18 15:55 12/24/18 15:55 12/24/18 15:55 Intake & Output 12/23/18 12/24/18 12/25/18 06:59 06:59 06:59 Intake Total 2720 2427 2482 Balance 2720 2427 2482 Weight 85.2 kg 96.9 kg Results Laboratory Results: 12/24/18 18:21 12/23/18 11:30 12/24/18 18:21 WBC 12.6 H RBC 3.76 Hgb 9.9 L Hct 31.4 L MCV 84 MCH 26.3 L MCHC 31.5 L RDW 15.9 H Plt Count 542 H Seg Neutrophils % 78.0 Lymphocytes % 6.0 L Monocytes % 11.8 Eosinophils % 3.9 Basophils % 0.3 Absolute Neutrophils 9.8 H Absolute Lymphocytes 0.7 Absolute Monocytes 1.5 H Absolute Eosinophils 0.5 Absolute Basophils 0.0 Impressions: Abdomen/Pelvis CT 12/21/18 09:09 IMPRESSION: 1. Since the prior study of 2018, significant ascites has developed. This looks like relatively simple fluid, not clearly pneumoperitoneum based on today's CT. Indeterminate etiology, however. 2. Complex appearing left ovarian region cyst. Poorly evaluated. Pelvic ultrasound if clinically warranted in a patient presenting with pain and ascites. Upper GI Series 12/21/18 11:36 IMPRESSION: No gross evidence of Omnipaque contrast leak from gastric bypass Assessment and Plan - Diagnosis (1) Acute pancreatitis Qualifiers: Pancreatitis type: alcohol induced Acute pancreatitis complication: no infection or necrosis Qualified Code(s): K85.20 - Alcohol induced acute pancreatitis without necrosis or infection Is this a current diagnosis for this admission?: Yes Plan: The patient is slightly worse today. I will increase her pain medication. I will recheck her lipase. She will continue n.p.o. status at this time. Her IV fluids will be increased slightly. Recheck chemistries tomorrow. Because of the continued pain and increased symptomatology I have added cefotaxime for possible SBP (2) Opiate use Is this a current diagnosis for this admission?: Yes Plan: Increase analgesia due to increased pain (3) Abdominal pain Qualifiers: Abdominal location: generalized Qualified Code(s): R10.84 - Generalized abdominal pain Is this a current diagnosis for this admission?: Yes Plan: The pain is actually worsening as opposed to improving. In review the patient has not had a bowel movement despite feces noted on the CT scan. Antibiotics administered as noted above. I will obtain a KUB x-ray and if necessary repeat CT scan. I will ask gynecology to assess patient tomorrow and see what their thoughts are on the left complex ovarian cyst. (4) Constipation Qualifiers: Constipation type: slow transit constipation Qualified Code(s): K59.01 - Slow transit constipation Is this a current diagnosis for this admission?: Yes Plan: With no bowel movement and considering the stool seen on the original CT scan I am going to order a single large dose of bisacodyl as well as a bisacodyl suppository. I have ordered a KUB as the abdomen is more distended and tense. (5) Ovarian cyst Qualifiers: Laterality: left Qualified Code(s): N83.202 - Unspecified ovarian cyst, left side Is this a current diagnosis for this admission?: Yes Plan: As noted above I will obtain gynecology consult tomorrow for their opinion on the left ovarian cyst. - Time Time Spent with patient: 15-24 minutes Medications reviewed and adjusted accordingly: Yes
[2018-12-24] MEDS: CEFOTAXIME SODIUM 2 GM in DEXTROSE 5%-WATER 50 ML IV SCH (21:31)
--- NOTE | 2018-12-24 22:19 | PDOC PROGRESS REPORT ---
Subjective Progress Note for:: 12/24/18 Subjective:: still abd pain, more distension Reason For Visit: PANCREATITIS Physical Exam Vital Signs: Temp Pulse Resp BP Pulse Ox 98.9 F 123 H 16 141/85 H 95 12/24/18 15:55 12/24/18 15:55 12/24/18 15:55 12/24/18 15:55 12/24/18 15:55 Intake & Output 12/23/18 12/24/18 12/25/18 06:59 06:59 06:59 Intake Total 2720 2427 2482 Balance 2720 2427 2482 Weight 85.2 kg 96.9 kg General appearance: PRESENT: mild distress Head exam: PRESENT: normocephalic Eye exam: PRESENT: EOMI Mouth exam: PRESENT: moist Teeth exam: PRESENT: poor dentation Neck exam: PRESENT: full ROM Respiratory exam: PRESENT: decreased breath sounds Cardiovascular exam: PRESENT: RRR, tachycardia Pulses: PRESENT: normal radial pulses, normal femoral pulses GI/Abdominal exam: PRESENT: tenderness - epigastric tenderness no bm despite miralax Extremities exam: PRESENT: full ROM Musculoskeletal exam: PRESENT: full ROM Neurological exam: PRESENT: alert, awake, oriented to person, oriented to place Psychiatric exam: PRESENT: agitated Skin exam: PRESENT: dry Results Laboratory Results: 12/24/18 18:21 12/23/18 11:30 12/24/18 18:21 WBC 12.6 H RBC 3.76 Hgb 9.9 L Hct 31.4 L MCV 84 MCH 26.3 L MCHC 31.5 L RDW 15.9 H Plt Count 542 H Seg Neutrophils % 78.0 Lymphocytes % 6.0 L Monocytes % 11.8 Eosinophils % 3.9 Basophils % 0.3 Absolute Neutrophils 9.8 H Absolute Lymphocytes 0.7 Absolute Monocytes 1.5 H Absolute Eosinophils 0.5 Absolute Basophils 0.0 Impressions: Abdomen/Pelvis CT 12/21/18 09:09 IMPRESSION: 1. Since the prior study of 2018, significant ascites has developed. This looks like relatively simple fluid, not clearly pneumoperitoneum based on today's CT. Indeterminate etiology, however. 2. Complex appearing left ovarian region cyst. Poorly evaluated. Pelvic ultrasound if clinically warranted in a patient presenting with pain and a scites. Upper GI Series 12/21/18 11:36 IMPRESSION: No gross evidence of Omnipaque contrast leak from gastric bypass Assessment & Plan - Diagnosis (1) Hx of gastric bypass Is this a current diagnosis for this admission?: Yes (3) Acute pancreatitis Qualifiers: Pancreatitis type: alcohol induced Acute pancreatitis complication: no infection or necrosis Qualified Code(s): K85.20 - Alcohol induced acute pancreatitis without necrosis or infection Is this a current diagnosis for this admission?: Yes (4) Abdominal pain Qualifiers: Abdominal location: generalized Qualified Code(s): R10.84 - Generalized abdominal pain Is this a current diagnosis for this admission?: Yes - Plan Summary Plan Summary: hx of gastric bypass, cholecystectomy' admitted for pancreatitis ?etoh this am still with pain, wbc sl decreased to 12k from 15 lipase down sl to 1200 from 1300 abd sl more distended today, no stool with mirlax plan repeat noncontrast ct. assess for increased fluid collection/pseudocyst. consider picc line for tpn
[2018-12-24] MEDS: ONDANSETRON 4 MG TAB.RAPDIS PO PRN (23:42)
--- NOTE | 2018-12-25 00:05 | RADIOLOGY REPORT (SQ) ---
EXAM DESCRIPTION: XR ABDOMEN 1 VIEW (KUB) COMPLETED DATE/TME: 12/24/2018 00:00 CLINICAL HISTORY: 28 years, Female, abdominal pain COMPARISON: Upper GI 12/21/2018 NUMBER OF VIEWS: 1 TECHNIQUE: AP abdomen LIMITATIONS: None. FINDINGS: Nonspecific bowel gas pattern. Residual contrast within the colon. Air-filled nondilated loops of large and small bowel. Surgical clips right upper quadrant. Evaluation for free air limited on a supine view IMPRESSION: Nonspecific bowel gas pattern. Residual contrast in colon copyright 2010 [employer]- All Rights Reserved
[2018-12-25] MEDS: ONDANSETRON HCL INJ/PF 4 MG/2 ML SDV IV PRN ×5 (03:16→21:39)
[2018-12-25] MEDS: HYDROMORPHONE HCL INJ/PF 2 MG/ML AMPULE IV PRN ×7 (03:16→23:18)
[2018-12-25] MEDS: CEFOTAXIME SODIUM 2 GM in DEXTROSE 5%-WATER 50 ML IV SCH (05:18)
[2018-12-25 05:24] LABS: ABSOLUTE EOSINOPHILS # (AUTO) 0.4 10^3/uL (0.0-0.6); ABSOLUTE LYMPHOCYTES (AUTO) 0.9 10^3/uL (0.5-4.7); ABSOLUTE MONOCYTES (AUTO) 1.9 10^3/uL (0.1-1.4); ABSOLUTE NEUT (AUTO) 10.9 10^3/uL (1.7-8.2); BASOPHILS % (AUTO) 0.2 % (0-2); EOSINOPHILS % (AUTO) 2.9 % (0-6); HEMATOCRIT 33.5 % (36.0-47.0); HEMOGLOBIN 10.4 g/dL (12.0-15.5); LYMPHOCYTES % (AUTO) 6.3 % (13-45); MEAN CORPUSCULAR HEMOGLOBIN 26.1 pg (27.0-33.4); MEAN CORPUSCULAR HGB CONC 31.1 g/dL (32.0-36.0); MEAN CORPUSCULAR VOLUME 84 fl (80-97); MONOCYTES % (AUTO) 13.5 % (3-13); PLATELET COUNT 511 10^3/uL (150-450); RED BLOOD COUNT 3.99 10^6/uL (3.72-5.28); SEGMENTED NEUTROPHILS % (AUTO) 77.1 % (42-78); TOTAL CELLS COUNTED % (AUTO) 100 %; WHITE BLOOD COUNT 14.1 10^3/uL (4.0-10.5)
[2018-12-25 05:43] LABS: ALANINE AMINOTRANSFERASE 25 U/L (9-52); ALBUMIN 2.4 g/dL (3.5-5.0); ALKALINE PHOSPHATASE 61 U/L (38-126); ANION GAP 12 (5-19); ASPARTATE AMINO TRANSFERASE 22 U/L (14-36); BILIRUBIN,DIRECT 0.5 mg/dL (0.0-0.4); BILIRUBIN,TOTAL 0.8 mg/dL (0.2-1.3); BLOOD UREA NITROGEN 17 mg/dL (7-20); CALCIUM 8.3 mg/dL (8.4-10.2); CARBON DIOXIDE 18 mmol/L (22-30); CHLORIDE 105 mmol/L (98-107); GLUCOSE 81 mg/dL (75-110); LIPASE 887.4 U/L (23-300); POTASSIUM 4.6 mmol/L (3.6-5.0); SODIUM 134.8 mmol/L (137-145); TOTAL PROTEIN 4.7 g/dL (6.3-8.2)
[2018-12-25] MEDS: NORMAL SALINE 1000 ML 1,000 ML IV PRN ×2 (08:27→15:59)
--- NOTE | 2018-12-25 09:00 | RADIOLOGY REPORT (SQ) ---
EXAM DESCRIPTION: CT ABD/PELVIS NO ORAL OR IV COMPLETED DATE/TIME: 12/25/2018 8:39 am REASON FOR STUDY: Worsening abdominal pain and distention COMPARISON: None. TECHNIQUE: CT scan of the abdomen and pelvis performed without intravenous or oral contrast. Images reviewed with lung, soft tissue, and bone windows. Reconstructed coronal and sagittal MPR images revi ewed. All images stored on PACS. All CT scanners at this facility use dose modulation, iterative reconstruction, and/or weight based d osing when appropriate to reduce radiation dose to as low as reasonably achievable (ALARA). [facility]: Dose Right [facility]: CareDose [facility]: Dose Right [facility]: Teradose 4D [facility]: Smart STORYS.JP RADIATION DOSE: CT Rad equipment meets quality standard of care and radiation dose reduction techniq ues were employed. CTDIvol: 15.7 mGy. DLP: 966 mGy-cm.mGy. LIMITATIONS: None. FINDINGS: LOWER CHEST: Extensive bibasilar airspace disease mass compatible with pneumonia. New fro m previous. NON-CONTRASTED LIVER, SPLEEN, ADRENALS: Evaluation limited by lack of IV contrast. No identified sign ificant masses. PANCREAS: No masses. No peripancreatic inflammatory changes. GALLBLADDER: Surgically absent. RIGHT KIDNEY AND URETER: No suspicious masses. Assessment limited by lack of IV contrast. No signif icant calcifications. No hydronephrosis or hydroureter. LEFT KIDNEY AND URETER: No suspicious masses. Assessment limited by lack of IV contrast. No signifi cant calcifications. No hydronephrosis or hydroureter. AORTA AND RETROPERITONEUM: No aneurysm. No retroperitoneal masses or adenopathy. BOWEL AND PERITONEAL CAVITY: Contrast in the colon. Scattered dilated small bowel loops without obst ructive pattern. APPENDIX: Surgically absent. PELVIS, BLADDER, AND ABDOMINAL WALL:Massive increase in the degree of ascites since the previous stud y. Pelvic organs not well identified. BONES: No significant findings. OTHER: No other significant finding. IMPRESSION: Interval development of extensive bilateral pneumonia and pleural effusions. Massive increase in the degree of ascites since the previous study. Adynamic ileus. COMMENT: Quality ID # [id number]: Final reports with documentation of one or more dose reduction techniques (e.g., Automated exposure control, adjustment of the mA and/or kV according to patient size, use of iterative reconstruction technique) TECHNICAL DOCUMENTATION: JOB ID: [id number]- All Rights Reserved Reading location - IP/workstation name: [email or web address]
[2018-12-25] MEDS: POLYETHYLENE GLYCOL 3350 POWDER 17 GM/1 PACKET PO SCH (09:06)
[2018-12-25] MEDS: SENNOSIDES/DOCUSATE 8.6-50 MG 1 EACH TABLET PO SCH ×2 (09:06→21:33)
[2018-12-25 12:27] LABS: INTERNATIONAL RATION (INR) 1.15; PROTHROMBIN TIME 15.3 SEC (11.4-15.4)
--- NOTE | 2018-12-25 12:57 | PDOC PROGRESS REPORT ---
Subjective Progress Note for:: 12/25/18 Subjective:: This is a 28-year-old female with alcoholic pancreatitis. She reports that her abdominal pain is stable from yesterday. She reports that her abdominal distention is worsening. She denies chest pain, shortness of breath, fevers, chills, nausea, vomiting, blurry vision, melena, hematochezia, fatigue. She does report abdominal distention and pain. Reason For Visit: PANCREATITIS Physical Exam Vital Signs: Temp Pulse Resp BP Pulse Ox 97.7 F 118 H 21 H 146/97 H 96 12/25/18 09:59 12/25/18 09:59 12/25/18 09:59 12/25/18 09:59 12/25/18 09:59 Intake & Output 12/24/18 12/25/18 12/26/18 06:59 06:59 06:59 Intake Total 2427 3022 Balance 2427 3022 Weight 96.9 kg 95.8 kg General appearance: PRESENT: no acute distress, cooperative Head exam: PRESENT: atraumatic, normocephalic Eye exam: PRESENT: EOMI, PERRLA. ABSENT: scleral icterus Mouth exam: PRESENT: moist, neck supple Neck exam: ABSENT: meningismus, tenderness, thyromegaly, tracheal deviation Respiratory exam: PRESENT: clear to auscultation freddie, unlabored. ABSENT: chest wall tenderness, tachypnea Cardiovascular exam: PRESENT: RRR Pulses: PRESENT: normal radial pulses Vascular exam: PRESENT: normal capillary refill. ABSENT: pallor GI/Abdominal exam: PRESENT: ascites, distended, soft, tenderness - Moderate. ABSENT: firm, guarding Rectal exam: PRESENT: deferred Extremities exam: ABSENT: clubbing Musculoskeletal exam: ABSENT: deformity Neurological exam: PRESENT: alert, awake, oriented to person, oriented to place, oriented to time, oriented to situation, CN II-XII grossly intact Psychiatric exam: ABSENT: agitated, anxious, depressed Focused psych exam: ABSENT: delusional Skin exam: ABSENT: cyanosis, erythema, jaundice Results Laboratory Results: 12/25/18 04:50 12/25/18 04:50 12/24/18 12/25/18 12/25/18 18:21 04:50 04:50 WBC 12.6 H 14.1 H RBC 3.76 3.99 Hgb 9.9 L 10.4 L Hct 31.4 L 33.5 L MCV 84 84 MCH 26.3 L 26.1 L MCHC 31.5 L 31.1 L RDW 15.9 H 16.0 H Plt Count 542 H 511 H Seg Neutrophils % 78.0 77.1 Lymphocytes % 6.0 L 6.3 L Monocytes % 11.8 13.5 H Eosinophils % 3.9 2.9 Basophils % 0.3 0.2 Absolute Neutrophils 9.8 H 10.9 H Absolute Lymphocytes 0.7 0.9 Absolute Monocytes 1.5 H 1.9 H Absolute Eosinophils 0.5 0.4 Absolute Basophils 0.0 0.0 Sodium 134.8 L Potassium 4.6 Chloride 105 Carbon Dioxide 18 L Anion Gap 12 BUN 17 Creatinine 0.55 Est GFR ( Amer) > 60 Est GFR (Non-Af Amer) > 60 Glucose 81 Calcium 8.3 L Total Bilirubin 0.8 AST 22 ALT 25 Alkaline Phosphatase 61 Total Protein 4.7 L Albumin 2.4 L Lipase 887.4 H Impressions: Upper GI Series 12/21/18 11:36 IMPRESSION: No gross evidence of Omnipaque contrast leak from gastric bypass KUB X-Ray 12/24/18 00:00 IMPRESSION: Nonspecific bowel gas pattern. Residual contrast in colon copyright 2011 [employer]- All Rights Reserved Abdomen/Pelvis CT 12/25/18 06:00 IMPRESSION: Interval development of extensive bilateral pneumonia and pleural effusions. Massive increase in the degree of ascites since the previous study. Adynamic ileus. Assessment & Plan - Diagnosis (1) Acute pancreatitis Qualifiers: Pancreatitis type: alcohol induced Acute pancreatitis complication: no infection or necrosis Qualified Code(s): K85.20 - Alcohol induced acute pancreatitis without necrosis or infection Is this a current diagnosis for this admission?: Yes - Plan Summary Plan Summary: This is a 28-year-old female with alcoholic pancreatitis. She also has intra- abdominal ascites, worrisome for liver dysfunction. I have reviewed her repeat CT scan for today. The head of the pancreas appears somewhat indistinct, consistent with pancreatitis. The tail the pancreas is not significantly edematous. There are crisp borders, and no surrounding fluid (tail of the pancreas). There is a large amount of intra-abdominal ascites. There is no free air. Continue with supportive care. No surgical intervention necessary at this time. Will follow.
[2018-12-25] MEDS ORDERED: FUROSEMIDE INJ/PF 40 MG/4 ML SDV IV ONE (13:00)
[2018-12-25] MEDS: ENOXAPARIN SODIUM INJ 30 MG/0.3 ML DISP.SYRIN SUBCUT SCH (13:05)
[2018-12-25] MEDS: ALBUMIN HUMAN 12.5 GM/50 ML RTUINJ IV SCH ×2 (13:17→14:11)
[2018-12-25] MEDS: LORAZEPAM INJ 2 MG/1 ML VIAL IV PRN ×2 (14:11→21:32)
--- NOTE | 2018-12-25 20:20 | PDOC PROGRESS REPORT ---
Subjective Progress Note for:: 12/25/18 Subjective:: The patient appears to be feeling slightly better today. She still has marked distention of the abdomen and CT scan reveals increased ascites. Constipation is still a problem. Reason For Visit: PANCREATITIS Physical Exam Vital Signs: Temp Pulse Resp BP Pulse Ox 97.7 F 118 H 21 H 146/97 H 96 12/25/18 09:59 12/25/18 09:59 12/25/18 09:59 12/25/18 09:59 12/25/18 09:59 Intake & Output 12/24/18 12/25/18 12/26/18 06:59 06:59 06:59 Intake Total 2427 3022 Balance 2427 3022 Weight 96.9 kg 95.8 kg General appearance: PRESENT: cooperative, mild distress - Mild to moderate distress, well-developed Head exam: PRESENT: atraumatic Ear exam: PRESENT: normal external ear exam Mouth exam: PRESENT: moist, tongue midline Respiratory exam: PRESENT: clear to auscultation freddie - But markedly decreased inspiratory phase due to marked ascites, decreased breath sounds, symmetrical. ABSENT: rhonchi, unlabored - Difficult to take deep breaths, wheezes Cardiovascular exam: PRESENT: RRR, +S1, +S2, tachycardia GI/Abdominal exam: PRESENT: distended, firm, normal bowel sounds, tenderness Neurological exam: PRESENT: alert, awake, oriented to person, oriented to place, oriented to time, oriented to situation, CN II-XII grossly intact. ABSENT: mot or sensory deficit Psychiatric exam: PRESENT: appropriate affect - Affect reflects her discomfort. ABSENT: agitated, anxious Focused psych exam: ABSENT: delusional, restlessness Results Laboratory Results: 12/25/18 04:50 12/25/18 04:50 12/24/18 12/25/18 12/25/18 18:21 04:50 04:50 WBC 12.6 H 14.1 H RBC 3.76 3.99 Hgb 9.9 L 10.4 L Hct 31.4 L 33.5 L MCV 84 84 MCH 26.3 L 26.1 L MCHC 31.5 L 31.1 L RDW 15.9 H 16.0 H Plt Count 542 H 511 H Seg Neutrophils % 78.0 77.1 Lymphocytes % 6.0 L 6.3 L Monocytes % 11.8 13.5 H Eosinophils % 3.9 2.9 Basophils % 0.3 0.2 Absolute Neutrophils 9.8 H 10.9 H Absolute Lymphocytes 0.7 0.9 Absolute Monocytes 1.5 H 1.9 H Absolute Eosinophils 0.5 0.4 Absolute Basophils 0.0 0.0 Sodium 134.8 L Potassium 4.6 Chloride 105 Carbon Dioxide 18 L Anion Gap 12 BUN 17 Creatinine 0.55 Est GFR ( Amer) > 60 Est GFR (Non-Af Amer) > 60 Glucose 81 Calcium 8.3 L Total Bilirubin 0.8 AST 22 ALT 25 Alkaline Phosphatase 61 Total Protein 4.7 L Albumin 2.4 L Lipase 887.4 H Impressions: Upper GI Series 12/21/18 11:36 IMPRESSION: No gross evidence of Omnipaque contrast leak from gastric bypass KUB X-Ray 12/24/18 00:00 IMPRESSION: Nonspecific bowel gas pattern. Residual contrast in colon copyright 2011 [employer]- All Rights Reserved Abdomen/Pelvis CT 12/25/18 06:00 IMPRESSION: Interval development of extensive bilateral pneumonia and pleural effusions. Massive increase in the degree of ascites since the previous study. Adynamic ileus. Assessment and Plan - Diagnosis (1) Acute pancreatitis Qualifiers: Pancreatitis type: alcohol induced Acute pancreatitis complication: no infection or necrosis Qualified Code(s): K85.20 - Alcohol induced acute pancreatitis without necrosis or infection Is this a current diagnosis for this admission?: Yes Plan: Lipase continues to come down. [place] clear liquid diet. (2) Opiate use Is this a current diagnosis for this admission?: Yes Plan: Still with chronic pain. Currently states that the Dilaudid dosing is ineffective. I will hold and continue the current dose as I expect improvement in her condition soon. (3) Abdominal pain Qualifiers: Abdominal location: generalized Qualified Code(s): R10.84 - Generalized abdominal pain Is this a current diagnosis for this admission?: Yes Plan: From a combination of the pancreatitis, ascites and constipation with retained air in the bowel. (4) Constipation Qualifiers: Constipation type: slow transit constipation Qualified Code(s): K59.01 - Slow transit constipation Is this a current diagnosis for this admission?: Yes Plan: We will institute more aggressive bowel regimen. - Time Time Spent with patient: 15-24 minutes Medications reviewed and adjusted accordingly: Yes - Plan Summary Plan Summary: Review of the second CT scan reveals that the pathology in the pelvis is secondary to the pancreatitis. No [employer] consult at this time. If there is an ovarian cyst it can be worked up after this acute episode.
[2018-12-25] MEDS: SPIRONOLACTONE 25 MG TABLET PO SCH (21:33)
[2018-12-25] MEDS ORDERED: METOPROLOL TARTRATE PF/INJ 5 MG/5 ML SDV IV ONE ×3 (22:07→22:08)
[2018-12-25] MEDS: METOPROLOL TARTRATE PF/INJ 5 MG/5 ML SDV IV SCH ×3 (22:12→22:49)
[2018-12-25] MEDS ORDERED: METOPROLOL TARTRATE 100 MG TABLET PO ONE (23:15)
[2018-12-25] MEDS ORDERED: HALOPERIDOL LACTATE INJ 5 MG/1 ML VIAL IV ONE (23:15)
[2018-12-26] MEDS: HYDROMORPHONE HCL INJ/PF 2 MG/ML AMPULE IV PRN (02:22)
[2018-12-26] MEDS ORDERED: NALOXONE HCL INJ/PF 0.4 MG/1 ML SDV ONE (05:04)
[2018-12-26 05:12] LABS: ANION GAP 12 (5-19); BLOOD UREA NITROGEN 22 mg/dL (7-20); CALCIUM 8.6 mg/dL (8.4-10.2); CARBON DIOXIDE 20 mmol/L (22-30); CHLORIDE 100 mmol/L (98-107); GLUCOSE 110 mg/dL (75-110); POTASSIUM 5.1 mmol/L (3.6-5.0); SODIUM 131.8 mmol/L (137-145)
[2018-12-26] MEDS ORDERED: NALOXONE HCL INJ/PF 0.4 MG/1 ML SDV IV ONE (05:45)
--- NOTE | 2018-12-26 06:59 | EKG REPORT ---
SEVERITY:- BORDERLINE ECG - SINUS TACHYCARDIA BORDERLINE T ABNORMALITIES, DIFFUSE LEADS : Confirmed by: Ro Smith 26-Dec-2018 06:59:06
[2018-12-26] MEDS ORDERED: NORMAL SALINE 1000 ML 1,000 ML IV PRN (08:48)
[2018-12-26] MEDS ORDERED: ROCURONIUM BROMIDE INJ 50 MG/5 ML VIAL IV ONE ×2 (08:57→15:30)
[2018-12-26] MEDS ORDERED: NORMAL SALINE 1000 ML 1,000 ML IV ONE ×2 (09:15→15:30)
[2018-12-26] MEDS ORDERED: VANCOMYCIN HCL 0 MG in DEXTROSE 5%-WATER 250 ML IV NR (09:15)
[2018-12-26 09:29] LABS: HEMATOCRIT 35.6 % (36.0-47.0); HEMOGLOBIN 11.3 g/dL (12.0-15.5); MEAN CORPUSCULAR HGB CONC 31.7 g/dL (32.0-36.0); MEAN CORPUSCULAR VOLUME 82 fl (80-97); PLATELET COUNT 700 10^3/uL (150-450); RED BLOOD COUNT 4.34 10^6/uL (3.72-5.28); RED CELL DISTRIBUTION WIDTH 16.4 % (11.5-14.0)
[2018-12-26 09:34] LABS: WHITE BLOOD COUNT 28.6 10^3/uL (4.0-10.5)
[2018-12-26] MEDS ORDERED: FUROSEMIDE INJ/PF 40 MG/4 ML SDV IV SCH (10:00)
[2018-12-26] MEDS ORDERED: VANCOMYCIN HCL 1,000 MG in DEXTROSE 5%-WATER 250 ML IV SCH (10:00)
[2018-12-26] MEDS ORDERED: PANTOPRAZOLE SODIUM 40 MG VIAL IV SCH (10:00)
[2018-12-26] MEDS ORDERED: CEFEPIME HCL 2 GM in DEXTROSE 5%-WATER 50 ML IV SCH (10:00)
[2018-12-26] MEDS ORDERED: PHARMACY COMMUNICATION ORDER MC NR ×3 (10:00→11:30)
[2018-12-26] MEDS ORDERED: CEFEPIME 2 GM/D5W RTU 2 GM/50 ML RTUPB IV SCH (10:00)
[2018-12-26 10:02] LABS: ABSOLUTE LYMPHOCYTES# (MANUAL) 1.7 10^3/uL (0.5-4.7); ABSOLUTE NEUTROPHILS# (MANUAL) 24.9 10^3/uL (1.7-8.2); BAND NEUTROPHILS % (MANUAL) 5 % (3-5); BASOPHILS % (MANUAL) 0 % (0-2); EOSINOPHILS % (MANUAL) 0 % (0-6); LYMPHOCYTES % (MANUAL) 6 % (13-45); MONOCYTES % (MANUAL) 7 % (3-13); SEGMENTED NEUTROPHILS % (MAN) 82 % (42-78); TOTAL CELLS COUNTED 100
[2018-12-26 10:14] LABS: ANISOCYTOSIS 1+; POLYCHROMASIA 1+
[2018-12-26 10:16] LABS: PLATELET COMMENT INCREASED; PLATELET LARGE PRESENT; TOXIC GRANULATION SLIGHT
[2018-12-26] MEDS ORDERED: LIDOCAINE 1% INJ-PF (10 MG/ML) 30 ML SDV ONE (10:43)
--- NOTE | 2018-12-26 11:10 | Operative Report ---
Operative Report DATE OF SURGERY: 12/26/18 PREOPERATIVE DIAGNOSIS: 1. Sepsis. 2. Acute pancreatitis. 3. Respiratory f ailure POSTOPERATIVE DIAGNOSIS: Same OPERATION: 1. Focused ultrasound of the left neck. 2. Ultrasound directed insertion of triple-lumen central venous access catheter left internal jugular vein. 3. Interpretation of post operative chest x-ray SURGEON: ALEJANDRA FLORENTINO ANESTHESIA: Local TISSUE REMOVED OR ALTERED: None COMPLICATIONS: None ESTIMATED BLOOD LOSS: Scant INTRAOPERATIVE FINDINGS: See below PROCEDURE: The patient was seen in the intensive care unit where she was tachycardic, systolic blood pressure of 90, and tachypneic. She could not lay flat, nor c ould she lay semirecumbent. So essentially she was in a near upright position because of profound shortness of breath. The left neck was exposed, prepped and draped in sterile fashion. Surgical plan surgical timeout were conducted. Focused ultrasound of the left neck revealed a compressible internal jugular vein felt suitable for cannulation. Skin was anesthetized with 1% plain lidocaine, conventional needle and guidewire threaded into position. There was some resistance with advancing the guidewire. The tract was dilated up in a triple-lumen central venous access catheter was threaded into position. However there was some resistance on advancing the catheter distally. Therefore the catheter was backed out, and a Glidewire was ready through the distal port. The Glidewire seem to encounter no resistance and I was able to lumen catheter over the Glidewire for nearly its entire length, with approximately 4 cm of catheter outside of the skin. I was able aspirate and flush through all 3 lm repeatedly with saline. The catheter was secured to the skin with 2-0 silk suture and a Biopatch and sterile dressing was applied. Portable x-ray obtained showed no evidence of pneumothorax; the tip of the catheter appeared to be in the superior vena cava with a acute curvature to it. Nonetheless I felt given the functionality of the, and the distressed state of the patient, the appropriate next step was to leave the catheter as is and use it. This was conveyed to the nursing staff Further management will include respiratory support, and paracentesis.
--- NOTE | 2018-12-26 11:13 | PDOC PROGRESS REPORT ---
Subjective Progress Note for:: 12/26/18 Subjective:: Patient hospitalized for over a week for acute gallstone pancreatitis. She is not improved clinically. Yesterday she had increased abdominal distention and a CT scan of the abdomen and pelvis with IV contrast only which showed findings consistent with increased ascites compared to 1 week prior, bilateral effusions and bilateral atelectasis. Patient complaining of more abdominal pain and distention. Reason For Visit: PANCREATITIS Physical Exam Vital Signs: Temp Pulse Resp BP Pulse Ox 97.3 F 126 H 28 H 75/53 L 96 12/26/18 08:40 12/26/18 08:40 12/26/18 08:40 12/26/18 08:40 12/26/18 08:40 Intake & Output 12/25/18 12/26/18 12/27/18 06:59 06:59 06:59 Intake Total 3022 2045 Output Total 800 Balance 3022 1245 Weight 95.8 kg 100.7 kg General appearance: PRESENT: other - Patient in obvious distress, respiratory rate in the upper 20s; blood pressure systolic 90. His assessment was still on the fourth floor. GI/Abdominal exam: PRESENT: other - Abdomen distended and tender. Results Laboratory Results: 12/26/18 09:10 12/26/18 04:42 12/26/18 12/26/18 12/26/18 04:42 04:42 09:10 WBC Cancelled 28.6 H D RBC Cancelled 4.34 Hgb Cancelled 11.3 L Hct Cancelled 35.6 L MCV Cancelled 82 MCH Cancelled 26.0 L MCHC Cancelled 31.7 L RDW Cancelled 16.4 H Plt Count Cancelled 700 H Seg Neutrophils % Cancelled Not Reportable Lymphocytes % Cancelled Not Reportable Monocytes % Cancelled Not Reportable Eosinophils % Cancelled Not Reportable Basophils % Cancelled Not Reportable Absolute Neutrophils Cancelled Not Reportable Absolute Lymphocytes Cancelled Not Reportable Absolute Monocytes Cancelled Not Reportable Absolute Eosinophils Cancelled Not Reportable Absolute Basophils Cancelled Not Reportable Carbonic Acid HCO3/H2CO3 Ratio ABG pH ABG pCO2 ABG pO2 ABG HCO3 ABG O2 Saturation ABG Base Excess FiO2 Sodium 131.8 L Potassium 5.1 H Chloride 100 Carbon Dioxide 20 L Anion Gap 12 BUN 22 H Creatinine 1.50 H Est GFR ( Amer) 49 L Est GFR (Non-Af Amer) 41 L Glucose 110 Calcium 8.6 12/26/18 10:10 WBC RBC Hgb Hct MCV MCH MCHC RDW Plt Count Seg Neutrophils % Lymphocytes % Monocytes % Eosinophils % Basophils % Absolute Neutrophils Absolute Lymphocytes Absolute Monocytes Absolute Eosinophils Absolute Basophils Carbonic Acid Cancelled HCO3/H2CO3 Ratio Cancelled ABG pH Cancelled ABG pCO2 Cancelled ABG pO2 Cancelled ABG HCO3 Cancelled ABG O2 Saturation Cancelled ABG Base Excess Cancelled FiO2 Cancelled Sodium Potassium Chloride Carbon Dioxide Anion Gap BUN Creatinine Est GFR ( Amer) Est GFR (Non-Af Amer) Glucose Calcium Impressions: Upper GI Series 12/21/18 11:36 IMPRESSION: No gross evidence of Omnipaque contrast leak from gastric bypass KUB X-Ray 12/24/18 00:00 IMPRESSION: Nonspecific bowel gas pattern. Residual contrast in colon copyright 2011 [employer]- All Rights Reserved Abdomen/Pelvis CT 12/25/18 06:00 IMPRESSION: Interval development of extensive bilateral pneumonia and pleural effusions. Massive increase in the degree of ascites since the previous study. Adynamic ileus. Assessment & Plan - Diagnosis (1) Acute pancreatitis Qualifiers: Pancreatitis type: alcohol induced Acute pancreatitis complication: no infection or necrosis Qualified Code(s): K85.20 - Alcohol induced acute pancreatitis without necrosis or infection Is this a current diagnosis for this admission?: Yes Plan: Impression: Patient now deteriorating, in septic shock by all parameters. Recommendations: 1. Patient needs transfer to unit, aggressive fluid resuscitation, central line placement 2. Patient will likely require a respiratory support with oral tracheal intuba tion and ventilator management 3. Patient will likely require transfer to higher level facility. The above discussed with Dr. cook
--- NOTE | 2018-12-26 11:21 | RADIOLOGY REPORT (SQ) ---
EXAM DESCRIPTION: CHEST SINGLE VIEW COMPLETED DATE/TIME: 12/26/2018 10:59 am REASON FOR STUDY: Central Line Placement COMPARISON: None. EXAM PARAMETERS: NUMBER OF VIEWS: One view. TECHNIQUE: Single frontal radiographic view of the chest acquired. RADIATION DOSE: NA LIMITATIONS: None. FINDINGS: LUNGS AND PLEURA: Elevation of the right hemidiaphragm. Bibasilar atelectasis/infiltrate . Small bilateral pleural effusions. No pneumothorax. MEDIASTINUM AND HILAR STRUCTURES: No masses. Contour normal. HEART AND VASCULAR STRUCTURES: Heart normal in size. Normal vasculature. BONES: No acute findings. HARDWARE: Left internal jugular venous catheter with the tip in the region of the superior vena cava -left brachiocephalic vein junction. No evidence of a pneumothorax. OTHER: No other significant finding. IMPRESSION: 1. Interval placement of left internal jugular venous catheter with the tip in the [place] on of the superior vena cava-left brachiocephalic vein junction. No pneumothorax. 2. Elevation of the right hemidiaphragm, bibasilar atelectasis/infiltrate and small pleural effusion s. TECHNICAL DOCUMENTATION: JOB ID: [id number] [employer]- All Rights Reserved Reading location - IP/workstation name: [email or web address]
[2018-12-26] MEDS ORDERED: DEXTROSE 5%-WATER 250 ML with PHENYLEPHRINE HCL 40 MG IV PRN ×2 (11:51)
[2018-12-26] MEDS ORDERED: ONDANSETRON 4 MG TAB.RAPDIS NG PRN (12:00)
[2018-12-26] MEDS ORDERED: MAGNESIUM HYDROXIDE SUSP 30 ML UDCUP NG PRN (12:00)
[2018-12-26] MEDS ORDERED: ACETAMINOPHEN 325 MG TABLET NG PRN (12:00)
--- NOTE | 2018-12-26 12:16 | PDOC PROGRESS REPORT ---
Subjective Progress Note for:: 12/26/18 Subjective:: 12/26/[id number]-dejh-old female for acute pancreatitis. CT abdomen pelvis done yesterday indicate worsening of the ascites. Associated with bilateral pleural effusions. CT scan also shows bilateral extensive pneumonia. Patient is transferred to ICU with plan to prophylactically intubate the patient. Patient is hypotensive tachycardic. And in respiratory distress. Dr. Schreiber spoke to me he said patient may need intubation and after that he is going to do the paracentesis. Reason For Visit: PANCREATITIS Physical Exam Vital Signs: Temp Pulse Resp BP Pulse Ox 97.3 F 126 H 28 H 75/53 L 96 12/26/18 08:40 12/26/18 08:40 12/26/18 08:40 12/26/18 08:40 12/26/18 08:40 Intake & Output 12/25/18 12/26/18 12/27/18 06:59 06:59 06:59 Intake Total 3022 2045 Output Total 800 Balance 3022 1245 Weight 95.8 kg 100.7 kg General appearance: PRESENT: severe distress Head exam: PRESENT: atraumatic Eye exam: PRESENT: PERRLA Mouth exam: PRESENT: moist, tongue midline Teeth exam: PRESENT: poor dentation Neck exam: ABSENT: carotid bruit, JVD, lymphadenopathy, thyromegaly Respiratory exam: PRESENT: crackles, decreased breath sounds, rhonchi Cardiovascular exam: PRESENT: tachycardia GI/Abdominal exam: PRESENT: other - Abdominal was distended with massive ascites. Rectal exam: PRESENT: deferred Extremities exam: PRESENT: full ROM. ABSENT: calf tenderness, clubbing, pedal edema Neurological exam: PRESENT: alert, awake, oriented to person, oriented to place, oriented to time, oriented to situation, CN II-XII grossly intact. ABSENT: motor sensory deficit Psychiatric exam: PRESENT: anxious Results Laboratory Results: 12/26/18 09:10 12/26/18 04:42 12/26/18 12/26/18 12/26/18 04:42 04:42 09:10 WBC Cancelled 28.6 H D RBC Cancelled 4.34 Hgb Cancelled 11.3 L Hct Cancelled 35.6 L MCV Cancelled 82 MCH Cancelled 26.0 L MCHC Cancelled 31.7 L RDW Cancelled 16.4 H Plt Count Cancelled 700 H Seg Neutrophils % Cancelled Not Reportable Lymphocytes % Cancelled Not Reportable Monocytes % Cancelled Not Reportable Eosinophils % Cancelled Not Reportable Basophils % Cancelled Not Reportable Absolute Neutrophils Cancelled Not Reportable Absolute Lymphocytes Cancelled Not Reportable Absolute Monocytes Cancelled Not Reportable Absolute Eosinophils Cancelled Not Reportable Absolute Basophils Cancelled Not Reportable Carbonic Acid HCO3/H2CO3 Ratio ABG pH ABG pCO2 ABG pO2 ABG HCO3 ABG O2 Saturation ABG Base Excess FiO2 Sodium 131.8 L Potassium 5.1 H Chloride 100 Carbon Dioxide 20 L Anion Gap 12 BUN 22 H Creatinine 1.50 H Est GFR ( Amer) 49 L Est GFR (Non-Af Amer) 41 L Glucose 110 Calcium 8.6 12/26/18 10:10 WBC RBC Hgb Hct MCV MCH MCHC RDW Plt Count Seg Neutrophils % Lymphocytes % Monocytes % Eosinophils % Basophils % Absolute Neutrophils Absolute Lymphocytes Absolute Monocytes Absolute Eosinophils Absolute Basophils Carbonic Acid Cancelled HCO3/H2CO3 Ratio Cancelled ABG pH Cancelled ABG pCO2 Cancelled ABG pO2 Cancelled ABG HCO3 Cancelled ABG O2 Saturation Cancelled ABG Base Excess Cancelled FiO2 Cancelled Sodium Potassium Chloride Carbon Dioxide Anion Gap BUN Creatinine Est GFR ( Amer) Est GFR (Non-Af Amer) Glucose Calcium Impressions: Upper GI Series 12/21/18 11:36 IMPRESSION: No gross evidence of Omnipaque contrast leak from gastric bypass KUB X-Ray 12/24/18 00:00 IMPRESSION: Nonspecific bowel gas pattern. Residual contrast in colon copyright 2011 [employer]- All Rights Reserved Abdomen/Pelvis CT 12/25/18 06:00 IMPRESSION: Interval development of extensive bilateral pneumonia and pleural effusions. Massive increase in the degree of ascites since the previous study. Adynamic ileus. Chest X-Ray 12/26/18 10:38 IMPRESSION: 1. Interval placement of left internal jugular venous catheter with the tip in the region of the superior vena cava-left brachiocephalic vein junction. No pneumothorax. 2. Elevation of the right hemidiaphragm, bibasilar atelectasis/infiltrate and small pleural effusions. Assessment and Plan - Diagnosis (1) Acute pancreatitis Qualifiers: Pancreatitis type: alcohol induced Acute pancreatitis complication: no infection or necrosis Qualified Code(s): K85.20 - Alcohol induced acute pancreatitis without necrosis or infection Is this a current diagnosis for this admission?: Yes Plan: Lipase continues to come down. [place] clear liquid diet. 12/26/2018-patient's latest lipase levels 887. That was yesterday. Repeat CT scan abdominal pelvis indicates massive ascites and bilateral pleural effusions and extensive bilateral pneumonia. Candie is plan to do the abdominal paracentesis this evening. Patient may have a gallstone pancreatitis. (2) Sepsis Is this a current diagnosis for this admission?: Yes Plan: 12/26/2018-patient looks like septic. Patient is hypotensive tachycardic with extensive bilateral pneumonia and WBC count is 28,600. Patient is on IV cefepime and on IV vancomycin. blood Cultures and urine cultures are requested. (3) Acute respiratory failure Is this a current diagnosis for this admission?: Yes Plan: 12/26/2018-patient has extensive bilateral pneumonia tachypneic and tachycardic. Pulse ox is at 97% on 40% oxygen. Blood cultures sputum cultures and urine cultures are going to be requested. plan to do the ABG now. Plan to do prophylactic intubation. (4) Upper abdominal pain Is this a current diagnosis for this admission?: Yes Plan: 12/26/2018-patient came in with abdominal pain combination of pancreatitis, ascites, constipation. And CT scan of the abdomen pelvis indicating worsening of the ascites. (5) YARED (acute kidney injury) Is this a current diagnosis for this admission?: Yes Plan: 12/26/2018-patient's serum creatinine is 0.55 yesterday and it is 1.5 today. Acute kidney injury most likely secondary to prerenal causes. Plan to place Erwin's catheter and to strictly monitor input output chart. (6) Hyperkalemia Is this a current diagnosis for this admission?: Yes Plan: 12/26/2018-serum potassium is 5.1. Plan to give Kayexalate if available via NG tube for hyperkalemia. - Time Time Spent with patient: 25-34 minutes Medications reviewed and adjusted accordingly: Yes Anticipated discharge: Home
[2018-12-26] MEDS ORDERED: MIDAZOLAM HCL 50 MG/100 ML RTUINJ ONE (12:33)
[2018-12-26] MEDS ORDERED: MIDAZOLAM HCL 50 MG/100 ML RTUINJ IV PRN (12:54)
--- NOTE | 2018-12-26 13:22 | RADIOLOGY REPORT (SQ) ---
EXAM DESCRIPTION: CHEST SINGLE VIEW COMPLETED DATE/TIME: 12/26/2018 12:36 pm REASON FOR STUDY: ET Tube Placement COMPARISON: Earlier the same day. NUMBER OF VIEWS: One view. TECHNIQUE: Single frontal radiographic image of the chest acquired. LIMITATIONS: None. FINDINGS: LUNGS AND PLEURA: No significant change. No pneumothorax. MEDIASTINUM AND HEART: Stable heart size and mediastinal structures. SUPPORT DEVICES: Unchanged position of left central line. Placement of endotracheal tube tip between thoracic inlet and mandy. Nasogastric tube extends in the left upper quadrant. BONY STRUCTURES: No acute findings. HARDWARE: None. OTHER: No other significant finding. IMPRESSION: Good position of support apparatus. No pneumothorax. Reading location - IP/workstation name: [email or web address]
--- NOTE | 2018-12-26 13:24 | RADIOLOGY REPORT (SQ) ---
EXAM DESCRIPTION: KUB/ABDOMEN (SINGLE VIEW) COMPLETED DATE/TIME: 12/26/2018 12:36 pm REASON FOR STUDY: Check Placement of NG Tube COMPARISON: None. NUMBER OF VIEWS: One view. TECHNIQUE: Portable upright radiographic image of the abdomen acquired. LIMITATIONS: None. FINDINGS: Nasogastric tube tip overlies the gastric remnant status post Stone-en-Y. IMPRESSION: Satisfactory position of nasogastric tube. Reading location - IP/workstation name: [email or web address]
[2018-12-26 13:29] LABS: ARTERIAL BLOOD BASE EXCESS -6.3 mmol/L; ARTERIAL BLOOD H2CO3 0.88 mmol/L (1.05-1.35); ARTERIAL BLOOD HCO3 17.5 mmol/L (20-24); ARTERIAL BLOOD O2 SATURATION 94.7 % (94-98); ARTERIAL BLOOD PCO2 29.4 mmHg (35-45); ARTERIAL BLOOD PH 7.39 (7.35-7.45); ARTERIAL BLOOD PO2 72.2 mmHg (80-100); ARTERIAL BLOOD TOTAL CO2 18.4 mmol/L (21-25)
[2018-12-26 13:33] LABS: ARTERIAL BLOOD FIO2 30%
--- NOTE | 2018-12-26 13:34 | Operative Report ---
Nonrecallable Operative Report DATE OF SURGERY: 12/26/18 PREOPERATIVE DIAGNOSIS: Sepsis; ascites POSTOPERATIVE DIAGNOSIS: Same with bile-stained ascitic fluid OPERATION: Ultrasound directed right upper quadrant paracentesis SURGEON: ALEJANDRA FLORENTINO ANESTHESIA: Local TISSUE REMOVED OR ALTERED: 200 cc of ascitic fluid right upper quadrant COMPLICATIONS: None ESTIMATED BLOOD LOSS: Scant INTRAOPERATIVE FINDINGS: See below PROCEDURE: The patient was in the intensive care unit, room 612. Sedated, intubated, now receiving paralytics. The right upper quadrant was exposed, prepped and draped in sterile fashion. Surgical plan surgical timeout were conducted. Focused ultrasound of the right upper quadrant revealed large fluid collection consistent with ascites. The skin was anesthetized with 1% plain lidocaine, michelle made in the skin with 11 blade, and the paracentesis needle and trocar were threaded into the right upper quadrant. The trocar was removed, allowing the catheter to be advanced into the peritoneal cavity. The catheter adapter was then attached to a Pleurx Vacutainer after modifying the proprietary connector. We drained approximately 200 cc of ascitic fluid. Approximately 6 cc of fluid was aspirated off of the catheter and sent to microbiology for analysis. It s melled like succus entericus. Appropriate taping and 4 x 4's are applied to secure the paracentesis catheter into position. Patient appeared to be tolerated the procedure well, and although tachycardic, her heart rate had come down from the 140s into the 120s.
[2018-12-26] MEDS: PROPOFOL 1,000 MG/100 ML INFUS..BTL IV PRN ×3 (13:50→15:58)
[2018-12-26] MEDS: SENNOSIDES/DOCUSATE 8.6-50 MG 1 EACH TABLET PO SCH (13:53)
[2018-12-26] MEDS: SPIRONOLACTONE 25 MG TABLET PO SCH (13:53)
[2018-12-26] MEDS: POLYETHYLENE GLYCOL 3350 POWDER 17 GM/1 PACKET PO SCH (13:53)
--- NOTE | 2018-12-26 13:57 | PDOC TRANSFER SUMMARY ---
General Admission Date/PCP: 12/21/18 13:20 Resuscitation Status: Full Code - Transfer Diagnosis (1) Acute pancreatitis Is this a current diagnosis for this admission?: Yes Diagnosis Summary: Lipase continues to come down. [place] clear liquid diet. 12/26/2018-patient's latest lipase levels 887. That was yesterday. Repeat CT scan abdominal pelvis indicates massive ascites and bilateral pleural effusions and extensive bilateral pneumonia. Candie is plan to do the abdominal paracentesis this evening. Patient may have a gallstone pancreatitis. 12/26/[id number]-hrmg-old female with multiple medical problems including gastric bypass, alcohol abuse, polysubstance abuse, COPD, cholecystectomy, appendic ectomy admitted on 12/21/2018 for acute pancreatitis. Initially his lipase was very much elevated. This morning lipase is 881. CT scan was done yesterday suggestive of massive increasing ascites and bilateral pleural effusions with bilateral left extensive pneumonia. Patient became tachycardic tachypneic went into respiratory distress. Status post intubation. Abdominal paracentesis was done and Dr. Schreiber called me and told me it is succus entericus he requested me to transfer the patient because of the multiple comorbidities. I spoke to Dr. York in [facility] he accepted the patient for further management. I sincerely appreciate his help (2) Sepsis Is this a current diagnosis for this admission?: Yes Diagnosis Summary: 12/26/2018-patient looks like septic. Patient is hypotensive tachycardic with extensive bilateral pneumonia and WBC count is 28,600. Patient is on IV cefepime and on IV vancomycin. blood Cultures and urine cultures are requested. 12/26/2018-patient is septic. Started on vancomycin and cefepime at the time of admission. Blood cultures are pending. Sputum cultures urine culture pending. Abdominal paracentesis suggest success entericus. Patient is hypotensive started on Rashad-Synephrine. (3) Acute respiratory failure Is this a current diagnosis for this admission?: Yes Diagnosis Summary: 12/26/2018-patient has extensive bilateral pneumonia tachypneic and tachycardic. Pulse ox is at 97% on 40% oxygen. Blood cultures sputum cultures and urine cultures are going to be requested. plan to do the ABG now. Plan to do prophylactic intubation. 12/26/2018-patient is presently on mechanical ventilation and sedation with propofol. Patient was intubated because of the extensive bilateral pneumonia and bilateral pleural effusions and respiratory distress. Follow-up chest x-ray suggest proper positioning of the tube. (4) Upper abdominal pain Is this a current diagnosis for this admission?: Yes Diagnosis Summary: 12/26/2018-patient came in with abdominal pain combination of pancreatitis, ascites, constipation. And CT scan of the abdomen pelvis indicating worsening of the ascites. Abdominal paracentesis was done the Dr. Schreiber told me it smells like success entericus. (5) YARED (acute kidney injury) Is this a current diagnosis for this admission?: Yes Diagnosis Summary: 12/26/2018-patient's serum creatinine is 0.55 yesterday and it is 1.5 today. Acute kidney injury most likely secondary to prerenal causes. Plan to place Erwin's catheter and to strictly monitor input output chart. (6) Hyperkalemia Is this a current diagnosis for this admission?: Yes - Transfer Medications Home Medications: Cyanocobalamin (Vitamin B-12) [Vitamin B-12 Inj 1000 Mcg/1 ml Vial] 1,000 mcg IM .MONTHLY 12/21/18 Dextroamphetamine/Amphetamine [Adderall 20 mg Tablet] 20 mg PO BID 12/21/18 Ergocalciferol (Vitamin D2) [Drisdol 50,000 Unit (1.25MG) Capsule] 50,000 unit PO MO@1000 12/21/18 Hydroxyzine HCl [Atarax 25 mg Tablet] 1 tab PO QIDP PRN 12/21/18 Prednisone [Deltasone 20 mg Tablet] 20 mg PO ASDIR 12/21/18 Transfer Medications: Current Medications Acetaminophen (Tylenol 325 Mg Tablet) 650 mg NG Q4HP PRN PRN Reason: FOR PAIN OR TEMP Stop: 01/20/19 14:43 Bisacodyl (Dulcolax 10 Mg Supp.Rect) 10 mg LA DAILYP PRN PRN Reason: UNRESOLVED CONSTIPATION Stop: 01/23/19 16:38 Bisacodyl (Dulcolax 5 Mg Tablet) 10 mg PO DAILYP PRN PRN Reason: UNRESOLVED CONSTIPATION Stop: 01/23/19 16:38 Enoxaparin Sodium (Lovenox Inj 30 Mg/0.3 Ml Disp.Syrin) 30 mg SUBCUT DAILY RAINA Stop: 01/21/19 09:59 Last Admin: 12/25/18 13:05 Dose: 30 mg Documented by: Furosemide (Lasix Inj/Pf 40 Mg/4 Ml Sdv) 40 mg IV DAILY [facility] Stop: 01/25/19 09:59 Hydromorphone HCl (Dilaudid Inj/Pf 2 Mg/Ml Ampule) 2 mg IV Q3HP PRN PRN Reason: FOR PAIN SCALE 4-5 Stop: 12/31/18 12:32 Last Admin: 12/26/18 02:22 Dose: 2 mg Documented by: Hydromorphone HCl (Dilaudid Inj/Pf 2 Mg/Ml Ampule) 1 mg IV Q3HP PRN PRN Reason: FOR PAIN SCALE 2-3 Stop: 12/31/18 12:32 Sodium Chloride (Nacl 0.9% 1000 Ml Iv Soln) 1,000 mls @ 150 mls/hr IV CONTINUOUS PRN PRN Reason: THIS MED IS NOT "PRN" Stop: 01/25/19 08:47 Cefepime HCl 2 gm/ Dextrose 50 mls @ 100 mls/hr IV Q12 [facility] Stop: 01/02/19 09:59 Last Admin: 12/26/18 09:02 Dose: 100 ml/hr, 100 mls/hr Documented by: Vancomycin HCl 1,000 mg/ (Dextrose) 250 mls @ 166.667 mls/hr IV Q12 [facility] Stop: 01/02/19 09:59 Propofol (Diprivan Rtu 1000 Mg/100 Ml Inf.Bottle) 1,000 mg in 100 mls @ 3.021 mls/hr IV CONTINUOUS PRN; Protocol PRN Reason: THIS MED IS NOT "PRN" Stop: 01/25/19 11:20 Hard Fat/Phenylephrine 40 mg/ (Dextrose) 250 mls @ 0 mls/hr IV CONTINUOUS PRN; Protocol PRN Reason: THIS MED IS NOT "PRN" Stop: 01/25/19 11:50 Midazolam HCl (Versed Rtu 50 Mg/100 Ml Premix Bag) 50 mg in 100 mls @ 0 mls/hr IV CONTINUOUS PRN; Protocol PRN Reason: THIS MED IS NOT "PRN" Stop: 01/02/19 12:53 Potassium Chloride 20 meq/Magnesium Sulfate 8 meq/Thiamine HCl 100 mg/Multivitamins/Minerals 10 ml/Folic Acid 1 mg/ Sodium Chloride 1,023.2 mls @ 125 mls/hr IV .ONE BAG DAILY PRN PRN Reason: THIS MED IS NOT "PRN" Stop: 01/25/19 13:18 Metronidazole (Flagyl Rtu 500 Mg/Ns 100ml Premix) 500 mg in 100 mls @ 100 mls/hr IV Q6 RAINA Stop: 01/02/19 13:29 Lorazepam (Ativan Inj 2 Mg/1 Ml Vial) 0.5 mg IV Q4HP PRN PRN Reason: ANXIETY/AGITATION Stop: 12/28/18 18:11 Last Admin: 12/25/18 21:32 Dose: 0.5 mg Documented by: Magnesium Hydroxide (Milk Of Magnesia 30 Ml Udcup) 30 ml NG BIDP PRN PRN Reason: FOR CONSTIPATION Stop: 01/20/19 19:48 Ondansetron HCl (Zofran Inj/Pf 4 Mg/2 Ml Sdv) 4 mg IV Q4HP PRN PRN Reason: FOR NAUSEA/VOMITING Stop: 01/20/19 23:46 Last Admin: 12/25/18 21:39 Dose: 4 mg Documented by: Ondansetron HCl (Zofran Odt 4 Mg Tablet) 4 mg NG Q6HP PRN PRN Reason: FOR NAUSEA/VOMITING Stop: 01/20/19 14:49 Pantoprazole Sodium (Protonix Iv Inj 40 Mg Vial) 40 mg IV Q12 [facility] Stop: 12/29/18 09:59 Pharmacy Profile Note (Medication Communication Order) 1 each .NOTICE NR Stop: 01/25/19 11:29 Pharmacy Profile Note (Medication Communication Order) 1 each .NOTICE NR Stop: 01/25/19 11:29 Polyethylene Glycol (Miralax Powder 17 Gm/Packet) 17 gm NG DAILY RAINA Stop: 01/21/19 09:59 Senna/Docusate Sodium (Senna Plus Tablet) 2 each NG BID RAINA Stop: 01/21/19 09:59 - Allergies Allergies/Adverse Reactions: No Known Allergies Allergy (Verified 11/03/17 02:48) Hospital Course Hospital Course: 12/26/2018-this 28-year-old female with multiple medical problems admitted for acute pancreatitis she has also history of heavy alcohol use. Lipase levels are elevated. At the time of admission follow-up CAT scan indicates massive increase in ascites bilateral pleural effusions extensive pneumonia. Patient was transferred to ICU intubated started on pressors paracentesis was done saying it smells like success entericus. I spoke with Dr. York to transfer the patient to [facility] for further management he accepted the patient appreciate his help. Physical Exam Vital Signs: Temp Pulse Resp BP Pulse Ox 97.3 F 126 H 28 H 75/53 L 97 12/26/18 08:40 12/26/18 08:40 12/26/18 08:40 12/26/18 08:40 12/26/18 12:00 Intake & Output 12/25/18 12/26/18 12/27/18 06:59 06:59 06:59 Intake Total 3022 2045 Output Total 800 Balance 3022 1245 Weight 95.8 kg 100.7 kg General appearance: PRESENT: other - Patient is now intubated under sedation. Head exam: PRESENT: atraumatic Eye exam: PRESENT: PERRLA Mouth exam: PRESENT: moist, tongue midline Neck exam: ABSENT: carotid bruit, JVD, lymphadenopathy, thyromegaly Respiratory exam: PRESENT: decreased breath sounds Cardiovascular exam: PRESENT: tachycardia GI/Abdominal exam: PRESENT: ascites Rectal exam: PRESENT: deferred Gentrourinary exam: PRESENT: indwelling catheter Neurological exam: PRESENT: other - Patient is intubated under sedation. Results Laboratory Results: 12/26/18 09:10 12/26/18 04:42 12/26/18 12/26/18 12/26/18 04:42 04:42 09:10 WBC Cancelled 28.6 H D RBC Cancelled 4.34 Hgb Cancelled 11.3 L Hct Cancelled 35.6 L MCV Cancelled 82 MCH Cancelled 26.0 L MCHC Cancelled 31.7 L RDW Cancelled 16.4 H Plt Count Cancelled 700 H Seg Neutrophils % Cancelled Not Reportable Lymphocytes % Cancelled Not Reportable Monocytes % Cancelled Not Reportable Eosinophils % Cancelled Not Reportable Basophils % Cancelled Not Reportable Absolute Neutrophils Cancelled Not Reportable Absolute Lymphocytes Cancelled Not Reportable Absolute Monocytes Cancelled Not Reportable Absolute Eosinophils Cancelled Not Reportable Absolute Basophils Cancelled Not Reportable Carbonic Acid HCO3/H2CO3 Ratio ABG pH ABG pCO2 ABG pO2 ABG HCO3 ABG O2 Saturation ABG Base Excess FiO2 Sodium 131.8 L Potassium 5.1 H Chloride 100 Carbon Dioxide 20 L Anion Gap 12 BUN 22 H Creatinine 1.50 H Est GFR ( Amer) 49 L Est GFR (Non-Af Amer) 41 L Glucose 110 Calcium 8.6 12/26/18 12/26/18 10:10 13:20 WBC RBC Hgb Hct MCV MCH MCHC RDW Plt Count Seg Neutrophils % Lymphocytes % Monocytes % Eosinophils % Basophils % Absolute Neutrophils Absolute Lymphocytes Absolute Monocytes Absolute Eosinophils Absolute Basophils Carbonic Acid Cancelled 0.88 L HCO3/H2CO3 Ratio Cancelled 19:1 ABG pH Cancelled 7.39 ABG pCO2 Cancelled 29.4 L ABG pO2 Cancelled 72.2 L ABG HCO3 Cancelled 17.5 L ABG O2 Saturation Cancelled 94.7 ABG Base Excess Cancelled -6.3 FiO2 Cancelled 30% Sodium Potassium Chloride Carbon Dioxide Anion Gap BUN Creatinine Est GFR ( Amer) Est GFR (Non-Af Amer) Glucose Calcium Impressions: Upper GI Series 12/21/18 11:36 IMPRESSION: No gross evidence of Omnipaque contrast leak from gastric bypass Abdomen/Pelvis CT 12/25/18 06:00 IMPRESSION: Interval development of extensive bilateral pneumonia and pleural effusions. Massive increase in the degree of ascites since the previous study. Adynamic ileus. KUB X-Ray 12/26/18 11:23 IMPRESSION: Satisfactory position of nasogastric tube. Chest X-Ray 12/26/18 12:09 IMPRESSION: Good position of support apparatus. No pneumothorax. Plan Discharge Plan: Patient is going to [facility]. Time Spent: Greater than 30 Minutes
[2018-12-26] MEDS: ENOXAPARIN SODIUM INJ 30 MG/0.3 ML DISP.SYRIN SUBCUT SCH (14:00)
[2018-12-26] MEDS ORDERED: ACETAMINOPHEN SOLN 325 MG/10.15 ML UDCUP NG PRN (14:17)
--- NOTE | 2018-12-26 14:19 | CONSULTATION REPORT E ---
Consultation Report NAME: DEA MUNGUIA : 1990 AGE: 28Y DATE: 12/26/2018 612 A TO: ALEJANDRA SCHREIBER M.D. FROM: ALEXANDRA FINE MD Requesting Physician TIME: Approximately 1:30 p.m. This is a 28-year-old white female hospitalized since 12/21/2018 for acute abdominal pain secondary to gallstone pancreatitis. The patient clinically deteriorated over the weekend. She had a CT scan of the abdomen and pelvis on 12/25/2018 with IV but no oral contrast, which showed significant ascites, pleural effusions and atelectasis. Overnight, the patient developed tachycardia, hypotension, tachypnea, and increased abdominal distention. Mid morning, she was transferred to the intensive care unit, where she had a central line placed by Dr. Schreiber. She subsequently underwent orotracheal intubation and sedation. To further understand what was going on in her abdomen, a paracentesis was performed by Dr. Schreiber. This returned 200 mL of bilious ascitic fluid that had a smell consistent with small bowel contents. Review of her chest x-ray obtained following central line insertion, performed with the patient semi-upright, showed no free air; there was no free air identified on the CT scan of the abdomen the day prior. Hemodynamically, the patient remained tachycardic, although heart rate now down into the 120s. She continued to maintain an acceptable blood pressure with a MAP of 80 on no pressors. Her abdomen was becoming less distended; however, she remained oliguric. The patient's laboratory profile on 12/26/2018 revealed increase in white blood cell count to 28,000 and 700,000 platelets, BUN and creatinine 22 and 1.50, and bicarb of 20. IMPRESSION: PERSISTING SEPSIS, POSSIBLY DUE TO ONGOING INTRAABDOMINAL SOURCE; RESULTS FROM PARACENTESIS CONCERNING FOR POSSIBLE SMALL BOWEL LEAK. OF NOTE, THE PATIENT HAD AN UPPER GASTROINTESTINAL SERIES ON 12/21/2018 SHOWING AN INTACT GASTROJEJUNOSTOMY, CONSISTENT WITH HER ROSENDO-EN-Y GASTRIC BYPASS. I spoke with the patient's parents. I explained to them that the patient has ongoing sepsis, possibly from an intraabdominal source. I was concerned that she may require exploratory laparotomy. Continued supportive care including intravenous antibiotics and intravenous fluids were being provided in the intensive care unit; however, the patient was at risk for progressive sepsis and multi-organ system failure. At this point, it was clear that the patient would benefit from transfer to a tertiary care level institution and the family was in agreement. I told them we would initiate that; in the interim, however, if the patient deteriorates clinically, she may require emergent exploratory laparotomy. DICTATING PHYSICIAN: ALEJANDRA SCHREIBER M.D. [id number] PHY#: [id number] ID: [id number] JOB#: [id number] ACCT: [id number] cc:ALEJANDRA SCHREIBER M.D. > MTDD
[2018-12-26] MEDS ORDERED: DEXTROSE 5%-NORMAL SALINE 1,000 ML IV PRN (15:00)
[2018-12-26] MEDS ORDERED: METRONIDAZOLE 500 MG/NS RTU 500 MG/100 ML RTUPB IV SCH (15:00)
[2018-12-26 15:13] VITALS: BP 109/75
--- NOTE | 2018-12-26 15:46 | PDOC CONSULTATION ---
Consultation Consult Date: 12/26/18 Attending physician:: ANA MARÍA SMALLWOOD Consult reason:: Respiratory failure /sepsis History of Present Illness Admission Date/PCP: 12/21/18 13:20 History of Present Illness: DEA MUNGUIA is a 28 year old female, currently intubated and sedated history of EtOH abuse with admissions noted on this admission she has a extent distended abdomen consistent with ascites and she is just had paracentesis per surgery shows a dark black bile she is currently has acidosis and a large pleural effusion particular on the right side it is of note that her white count has gone from 14,000 to 28,000 with in 24 hours. Her creatinine is gone from 0.8-1.51 also in the last 24 hours. It was reported the time of intubation she was agitated required Versed as well as propofol for adequate sedation Past Medical History Cardiac Medical History: Reports: Hypertension - gestational hypertension with first but has since resolved. Denies: Heart Murmur Pulmonary Medical History: Reports: None EENT Medical History: Reports: None, Other - no bleeding hx Neurological Medical History: Reports: None, Other - no hx of seizures Denies: Seizures Endocrine Medical History: Reports: None, Other - no cold or heat intolerance Renal/ Medical History: Reports: None Malignancy Medical History: Reports: None GI Medical History: Reports: Other - hx of gatric bypass question of previous ulcer Psychiatric Medical History: Reports: Depression - since 14 years years old Denies: Bipolar Disorder, Post Traumatic Stress Disorder Traumatic Medical History: Reports: None Hematology: Reports: Other - no bleeding hx Infectious Medical History: Reports: None Past Surgical History Past Surgical History: Reports: Section - 2 C- sections; one before and one after the gastric bypass., Gastric Bypass Surgery - done 5 yrs ago at [facility] here in [place]., Orthopedic Surgery - Right Ankle ORIF Social History Information Source: [facility] Records Lives with: Family Smoking Status: Unknown if Ever Smoked Passive smoke exposure as: Both Frequency of Alcohol Use: Heavy Hx Recreational Drug Use: Yes Drugs: Marijuana Hx Prescription Drug Abuse: Yes - Advance Directive Resuscitation Status: Full Code Family History Parental Family History Reviewed: No Children Family History Reviewed: No Sibling(s) Family History Reviewed.: No Medication/Allergy Home Medications: Cyanocobalamin (Vitamin B-12) [Vitamin B-12 Inj 1000 Mcg/1 ml Vial] 1,000 mcg IM .MONTHLY 12/21/18 Dextroamphetamine/Amphetamine [Adderall 20 mg Tablet] 20 mg PO BID 12/21/18 Ergocalciferol (Vitamin D2) [Drisdol 50,000 Unit (1.25MG) Capsule] 50,000 unit PO MO@1000 12/21/18 Hydroxyzine HCl [Atarax 25 mg Tablet] 1 tab PO QIDP PRN 12/21/18 Prednisone [Deltasone 20 mg Tablet] 20 mg PO ASDIR 12/21/18 Allergies/Adverse Reactions: No Known Allergies Allergy (Verified 11/03/17 02:48) Review of Systems ROS unobtainable: Due to endotracheal tube Physical Exam Vital Signs: Temp Pulse Resp BP Pulse Ox 97.3 F 118 H 20 109/75 97 12/26/18 08:40 12/26/18 10:00 12/26/18 10:00 12/26/18 10:00 12/26/18 12:00 Intake & Output 12/25/18 12/26/18 12/27/18 06:59 06:59 06:59 Intake Total 3022 2045 150 Output Total 800 Balance 3022 1245 150 Weight 95.8 kg 100.7 kg General appearance: PRESENT: no acute distress, disheveled, well-developed, well-nourished. ABSENT: cooperative Head exam: PRESENT: atraumatic, normocephalic Eye exam: PRESENT: conjunctiva pale. ABSENT: EOMI, nystagmus, periorbital swelling, scleral icterus Mouth exam: PRESENT: dry mucosa, neck supple, tongue midline, other - ET tube in place Neck exam: ABSENT: carotid bruit, JVD, lymphadenopathy, thyromegaly, tracheal deviation, tracheostomy Respiratory exam: PRESENT: decreased breath sounds, prolonged expiratory phas, rales, rhonchi, stridor, tachypnea, unlabored, wheezes. ABSENT: retraction, symmetrical Cardiovascular exam: PRESENT: RRR, +S1, +S2, tachycardia Pulses: PRESENT: normal radial pulses GI/Abdominal exam: PRESENT: ascites, diminished bowel sounds, distended, firm. ABSENT: hernia, mass, normal bowel sounds, organolmegaly Gentrourinary exam: PRESENT: indwelling catheter Extremities exam: ABSENT: calf tenderness, clubbing, joint swelling, pedal edema Musculoskeletal exam: ABSENT: ambulatory, deformity, dislocation Neurological exam: ABSENT: awake Skin exam: PRESENT: dry, jaundice, warm Results Laboratory Results: 12/26/18 09:10 12/26/18 04:42 12/26/18 12/26/18 12/26/18 04:42 04:42 09:10 WBC Cancelled 28.6 H D RBC Cancelled 4.34 Hgb Cancelled 11.3 L Hct Cancelled 35.6 L MCV Cancelled 82 MCH Cancelled 26.0 L MCHC Cancelled 31.7 L RDW Cancelled 16.4 H Plt Count Cancelled 700 H Seg Neutrophils % Cancelled Not Reportable Lymphocytes % Cancelled Not Reportable Monocytes % Cancelled Not Reportable Eosinophils % Cancelled Not Reportable Basophils % Cancelled Not Reportable Absolute Neutrophils Cancelled Not Reportable Absolute Lymphocytes Cancelled Not Reportable Absolute Monocytes Cancelled Not Reportable Absolute Eosinophils Cancelled Not Reportable Absolute Basophils Cancelled Not Reportable Carbonic Acid HCO3/H2CO3 Ratio ABG pH ABG pCO2 ABG pO2 ABG HCO3 ABG O2 Saturation ABG Base Excess FiO2 Sodium 131.8 L Potassium 5.1 H Chloride 100 Carbon Dioxide 20 L Anion Gap 12 BUN 22 H Creatinine 1.50 H Est GFR ( Amer) 49 L Est GFR (Non-Af Amer) 41 L Glucose 110 Calcium 8.6 12/26/18 12/26/18 10:10 13:20 WBC RBC Hgb Hct MCV MCH MCHC RDW Plt Count Seg Neutrophils % Lymphocytes % Monocytes % Eosinophils % Basophils % Absolute Neutrophils Absolute Lymphocytes Absolute Monocytes Absolute Eosinophils Absolute Basophils Carbonic Acid Cancelled 0.88 L HCO3/H2CO3 Ratio Cancelled 19:1 ABG pH Cancelled 7.39 ABG pCO2 Cancelled 29.4 L ABG pO2 Cancelled 72.2 L ABG HCO3 Cancelled 17.5 L ABG O2 Saturation Cancelled 94.7 ABG Base Excess Cancelled -6.3 FiO2 Cancelled 30% Sodium Potassium Chloride Carbon Dioxide Anion Gap BUN Creatinine Est GFR ( Amer) Est GFR (Non-Af Amer) Glucose Calcium Impressions: Upper GI Series 12/21/18 11:36 IMPRESSION: No gross evidence of Omnipaque contrast leak from gastric bypass Abdomen/Pelvis CT 12/25/18 06:00 IMPRESSION: Interval development of extensive bilateral pneumonia and pleural effusions. Massive increase in the degree of ascites since the previous study. Adynamic ileus. KUB X-Ray 12/26/18 11:23 IMPRESSION: Satisfactory position of nasogastric tube. Chest X-Ray 12/26/18 12:09 IMPRESSION: Good position of support apparatus. No pneumothorax. Assessment & Plan - Diagnosis (1) Ascites Is this a current diagnosis for this admission?: Yes Plan: Dark, etiology not completely clear at this time (2) Pleural cavity effusion Is this a current diagnosis for this admission?: Yes Plan: Believe this fluid particular on the right side HAs transverse the diaphragm from the abdominal cavity (3) YARED (acute kidney injury) Is this a current diagnosis for this admission?: Yes (4) Acute respiratory failure Qualifiers: Respiratory failure complication: hypoxia and hypercapnia Qualified Code(s): J96.01 - Acute respiratory failure with hypoxia; J96.02 - Acute respiratory failure with hypercapnia Is this a current diagnosis for this admission?: Yes Plan: Oxygenate to keep his SaO2 greater than 90% ventilate to keep pH is close to normal as possible (5) Sepsis Is this a current diagnosis for this admission?: Yes Plan: Cultures are pending we will add Flagyl is reasonable to assume, pathogens are enteric - Time Total Critical Time (Minutes): 60 - Plan Summary Plan Summary: Primary care physician as well as surgeon believe it would be in this patient's best interest to be transferred to a tertiary care center I concur
[2018-12-26] MEDS ORDERED: NORMAL SALINE 1000 ML 1,000 ML with POTASSIUM CHLORIDE 20 MEQ, MAGNESIUM SULFATE 8 MEQ,... IV SCH ×6 (18:00)
[2018-12-26] MEDS ORDERED: NORMAL SALINE 1000 ML 1,000 ML with MAGNESIUM SULFATE 8 MEQ, THIAMINE HCL 100 MG, MVI, ... IV SCH ×5 (18:00)
[2018-12-26] MEDS ORDERED: SENNOSIDES/DOCUSATE 8.6-50 MG 1 EACH TABLET NG SCH (18:00)
[2018-12-27] MEDS ORDERED: POLYETHYLENE GLYCOL 3350 POWDER 17 GM/1 PACKET NG SCH (10:00)
== END 2018-12-26 16:30 | disposition short-term general hospital (02) | DRG 438 ==
LOC: ER 06:29 → EH 13:20 → 4S 18:51 → ICU 12-26 09:40
PROVIDERS: ADMIT Hospitalist; ATTEND Hospitalist
PROC: 5A1935Z Respiratory Ventilation, Less than 24 Consecutive Hours (ICD-10-PCS; principal; 2018-12-26)
PROC: 0BH17EZ Insertion of Endotracheal Airway into Trachea, Via Natural or Artificial Opening (ICD-10-PCS; 2018-12-26)
PROC: 02HV33Z Insertion of Infusion Device into Superior Vena Cava, Percutaneous Approach (ICD-10-PCS; 2018-12-26)
PROC: 0W9G3ZX Drainage of Peritoneal Cavity, Percutaneous Approach, Diagnostic (ICD-10-PCS; 2018-12-26)
PROC: B548ZZA Ultrasonography of Superior Vena Cava, Guidance (ICD-10-PCS; 2018-12-26)
DX: K85.20 Alcohol induced acute pancreatitis without necrosis or infection (principal); J18.9 Pneumonia, unspecified organism; A41.9 Sepsis, unspecified organism; J96.01 Acute respiratory failure with hypoxia; J96.02 Acute respiratory failure with hypercapnia; N17.9 Acute kidney failure, unspecified; R18.8 Other ascites; Z78.1 Physical restraint status; F10.10 Alcohol abuse, uncomplicated; J44.9 Chronic obstructive pulmonary disease, unspecified; E87.5 Hyperkalemia; F19.10 Other psychoactive substance abuse, uncomplicated; F32.9 Major depressive disorder, single episode, unspecified; N83.202 Unspecified ovarian cyst, left side; K59.01 Slow transit constipation; Z98.84 Bariatric surgery status; Z90.49 Acquired absence of other specified parts of digestive tract; Z79.899 Other long term (current) drug therapy
CPT/HCPCS: 31500; 36415; 71045; 74018; 74176; 74177; 74247; 80048; 80053; 80061; 80307; 81001; 81025; 82803; 83605; 83690; 83735; 84100; 84443; 85025; 85027; 85610; 87040; 87070; 87075; 87077; 87186; 87205; 93005; 93010; 94002; 96361; 96365; 96366; 96375; 96376; 99285; G0480; J0692; J1170; J1630; J1650; J1885; J1940; J2060; J2250; J2270; J2310; J2405; J2543; J2704; J3010; J3490; J7030; J7060; P9047; S0119; S0164

== ENCOUNTER → 2019-02-08 | Outpatient (CLI) | payer MEDICAID ==
--- NOTE | 2019-02-08 15:39 | RADIOLOGY REPORT (SQ) ---
EXAM DESCRIPTION: CT ABD/PELVIS WITH IV ONLY COMPLETED DATE/TIME: 02/08/2019 2:26 pm REASON FOR STUDY: T81.49XA INFECTION FOLLOWING A PROCEDURE, OTHER SURGICAL SITE, INIT T81.49XA INFE CTION FOLLOWING A PROCEDURE, OTHER SURGICAL SIT COMPARISON: 12/21/2018 TECHNIQUE: CT scan of the abdomen and pelvis performed using helical scanning technique with dynamic intravenous contrast injection. No oral contrast. Images reviewed with lung, soft tissue, and bone windows. Reconstructed coronal and sagittal MPR images reviewed. Delayed images for evaluation of the urinary system also acquired. All images stored on PACS. All CT scanners at this facility use dose modulation, iterative reconstruction, and/or weight based d osing when appropriate to reduce radiation dose to as low as reasonably achievable (ALARA). [facility]: Dose Right [facility]: CareDose [facility]: Dose Right [facility]: Teradose 4D [facility]: Se[employer] CONTRAST TYPE AND DOSE: contrast/concentration: Isovue 350.00 mg/ml; Total Contrast Delivered: 78.0 ml; Total Saline Delivered: 67.0 ml RENAL FUNCTION: GFR > 60. RADIATION DOSE: CT Rad equipment meets quality standard of care and radiation dose reduction techniq ues were employed. CTDIvol: 10.4 mGy. DLP: 611 mGy-cm.. LIMITATIONS: None. FINDINGS: LOWER CHEST: Moderate right pleural effusion and associated airspace disease right lower l obe. Trace left pleural effusion. LIVER: Normal size. No masses. No dilated ducts. SPLEEN: Upper limits of normal in size. No focal lesions. PANCREAS: No masses. No significant calcifications. No adjacent inflammation or peripancreatic fluid collections. Pancreatic duct not dilated. GALLBLADDER: Surgically absent. ADRENAL GLANDS: No significant masses or asymmetry. RIGHT KIDNEY AND URETER: No solid masses. No significant calcifications. No hydronephrosis or hyd roureter. LEFT KIDNEY AND URETER: No solid masses. No significant calcifications. No hydronephrosis or hydr oureter. AORTA AND VESSELS: No aneurysm. No dissection. Renal arteries, SMA, celiac without stenosis. RETROPERITONEUM: No retroperitoneal adenopathy, hemorrhage or masses. BOWEL AND PERITONEAL CAVITY: Gastrostomy. Percutaneous drain right flank. At least 2 anastomosis up per abdomen. No dilated loops. Minimal ascites. APPENDIX: Surgically absent. PELVIS: No mass. Small amount free fluid. Normal bladder. ABDOMINAL WALL: See above. BONES: No significant or acute findings. OTHER: No other significant finding. IMPRESSION: 1. Extensive bowel surgery. No obvious abscess. Minimal ascites. 2. Moderate right pleural effusion and associated atelectasis or pneumonia. Clinical correlation is needed. TECHNICAL DOCUMENTATION: JOB ID: [id number] Quality ID # 436: Final reports with documentation of one or more dose reduction techniques (e.g., Au tomated exposure control, adjustment of the mA and/or kV according to patient size, use of iterative reconstruction technique) 2010 [employer]- All Rights Reserved Reading location - IP/workstation name: [email or web address]-
== END ==
LOC: RAD 13:22
PROVIDERS: ATTEND Surgery
DX: T81.49XA Infection following a procedure, other surgical site, initial encounter (principal); J90 Pleural effusion, not elsewhere classified
CPT/HCPCS: 74177

== ENCOUNTER → 2019-03-29 | Outpatient (CLI) | payer MEDICAID ==
--- NOTE | 2019-03-29 15:19 | RADIOLOGY REPORT (SQ) ---
EXAM DESCRIPTION: CT ABD/PELVIS WITH IV ONLY COMPLETED DATE/TIME: 03/29/2019 2:29 pm REASON FOR STUDY: INTRA-ABDOMINAL ABSCESS (K65.1) K65.1 PERITONEAL ABSCESS R06.02 SHORTNESS OF SCARLET ATH COMPARISON: 02/08/2019 TECHNIQUE: CT scan of the abdomen and pelvis performed using helical scanning technique with dynamic intravenous contrast injection. Patient was given oral contrast. Images reviewed with lung, soft ti ssue, and bone windows. Reconstructed coronal and sagittal MPR images reviewed. Delayed images for ev aluation of the urinary system also acquired. All images stored on PACS. All CT scanners at this facility use dose modulation, iterative reconstruction, and/or weight based d osing when appropriate to reduce radiation dose to as low as reasonably achievable (ALARA). [facility]: Dose Right [facility]: CareDose [facility]: Dose Right [facility]: Teradose 4D [facility]: P3 [employer] CONTRAST TYPE AND DOSE: See chest RENAL FUNCTION: None required. The patient is less than 50 years old. RADIATION DOSE: CT Rad equipment meets quality standard of care and radiation dose reduction techniq ues were employed. CTDIvol: 4.2 - 16.9 mGy. DLP: 1017 mGy-cm.. LIMITATIONS: None. FINDINGS: LOWER CHEST: See separate report of the CT of the chest. LIVER: Normal size. No masses. No dilated ducts. SPLEEN: Normal size. No focal lesions. PANCREAS: No masses. No significant calcifications. No adjacent inflammation or peripancreatic fluid collections. Pancreatic duct not dilated. GALLBLADDER: Surgically absent. ADRENAL GLANDS: No significant masses or asymmetry. RIGHT KIDNEY AND URETER: No solid masses. No significant calcifications. No hydronephrosis or hyd roureter. LEFT KIDNEY AND URETER: No solid masses. No significant calcifications. No hydronephrosis or hydr oureter. AORTA AND VESSELS: No aneurysm. No dissection. Renal arteries, SMA, celiac without stenosis. RETROPERITONEUM: No retroperitoneal adenopathy, hemorrhage or masses. BOWEL AND PERITONEAL CAVITY: Evidence of prior gastric bypass. No evidence of intestinal obstruction . No focal bowel wall thickening. No evidence of contrast extravasation. There is unchanged positi on of the pigtail catheter within the right upper quadrant without residual focal drainable collectio n. Previously-seen gastrostomy tube is no longer present. APPENDIX: Surgically absent. PELVIS: Decompressed urinary bladder. No free fluid or adenopathy. ABDOMINAL WALL: No masses. No hernias. BONES: No significant or acute findings. OTHER: No other significant finding. IMPRESSION: Postsurgical changes with stable small bore right-sided abdominal pigtail catheter witho ut residual or new drainable collections. No other evidence of acute intra-abdominal/pelvic process. TECHNICAL DOCUMENTATION: JOB ID: [id number] Quality ID # [id number]: Final reports with documentation of one or more dose reduction techniques (e.g., Au tomated exposure control, adjustment of the mA and/or kV according to patient size, use of iterative reconstruction technique) 2010 [email or web address]- All Rights Reserved Reading location - IP/workstation name: [email or web address]
--- NOTE | 2019-03-30 09:59 | RADIOLOGY REPORT (SQ) ---
EXAM DESCRIPTION: CTA CHEST COMPLETED DATE/TIME: 03/29/2019 2:29 pm REASON FOR STUDY: PLEURAL EFFUSION (J90) K65.1 PERITONEAL ABSCESS R06.02 SHORTNESS OF BREATH COMPARISON: 02/08/2019, 12/25/2018 TECHNIQUE: CT scan of the chest performed using helical scanning technique with dynamic intravenous contrast injection. Images reviewed with lung, soft tissue and bone windows. Reconstructed coronal and sagittal MPR images reviewed. Additional 3 dimensional post-processing performed to develop Maximal Intensity Projection images (NC P). All images stored on PACS. All CT scanners at this facility use dose modulation, iterative reconstruction, and/or weight based d osing when appropriate to reduce radiation dose to as low as reasonably achievable (ALARA). [facility]: Dose Right [facility]: CareDose [facility]: Dose Right [facility]: Teradose 4D [facility]: [employer] CONTRAST TYPE AND DOSE: contrast/concentration: Isovue 350.00 mg/ml; Total Contrast Delivered: 63.0 ml; Total Saline Delivered: 80.0 ml Contrast bolus optimized for the pulmonary arteries. Not diagnostic for the aorta. RENAL FUNCTION: None required. The patient is less than 50 years old. RADIATION DOSE: . LIMITATIONS: None. FINDINGS: LUNGS AND PLEURA: No masses, infiltrates, or pneumothorax. No pleural effusions or pleura l calcifications. AORTA AND GREAT VESSELS: No aneurysm. Contrast bolus not optimized for the aorta. HEART: No pericardial effusion. No significant coronary artery calcifications. PULMONARY ARTERIES: No emboli visualized in the main pulmonary arteries or the segmental branches. HILAR AND MEDIASTINAL STRUCTURES: No identified masses or abnormal nodes. HARDWARE: None in the chest. UPPER ABDOMEN: See separate report of the CT of the abdomen. THYROID AND OTHER SOFT TISSUES: No masses. No adenopathy. Curvilinear vacuum device and catheter tu ravi overlies left chest. BONES: No acute or significant finding. 3D MIPS: Confirm above findings. OTHER: No other significant finding. IMPRESSION: No evidence of pulmonary embolus or other acute intrathoracic process. COMMENT: Quality ID # 436: Final reports with documentation of one or more dose reduction techniques (e.g., Automated exposure control, adjustment of the mA and/or kV according to patient size, use of iterative reconstruction technique) TECHNICAL DOCUMENTATION: JOB ID: [id number] [employer]- All Rights Reserved Reading location - IP/workstation name: [facility]
== END ==
LOC: RAD 13:51
PROVIDERS: ATTEND Nurse Practitioner Adult Health
DX: K65.1 Peritoneal abscess (principal); J90 Pleural effusion, not elsewhere classified; R06.02 Shortness of breath
CPT/HCPCS: 71275; 74177

== ENCOUNTER 2019-07-19 12:03 | Emergency (ER) | payer MEDICAID ==
--- NOTE | 2019-07-19 12:56 | ER Document Report ---
Entered by BLADE SCRUGGS SCRIBE 07/19/19 1245 Acting as scribe for:YESSI CORTES MD ED General - General Chief Complaint: Abnormal Lab Results Stated Complaint: ABNOMAL LABS Time Seen by Provider: 07/19/19 12:24 Primary Care Provider: MICKI YBARRA MD [Primary Care Provider] - Follow up as needed Mode of Arrival: Ambulatory Information source: Patient Notes: This 29-year-old female patient presents to the emergency department today stating that she had outpatient labs drawn a week and a half ago and her hemoglobin was found to be 8.5. Patient states her only symptoms have been that she has been "very tired recently". Patient has a history of gastric bypass in 2013 as well as a perforated ulcer on January 08, 2019. Patient reports if she had not been called and told to come the emergency room, she would probably be home sleeping. Pertinent PMHx/PSHx: Gastric Bypass 2013, Perforated peptic ulcer December 2018 - additional PMHx/PSHx not pertinent to this visit as recorded. PCP: Doctor Ybarra TRAVEL OUTSIDE OF THE [place] IN LAST 30 DAYS: No - Related Data Allergies/Adverse Reactions: No Known Allergies Allergy (Verified 11/03/17 02:48) Home Medications: vitamins. adderall. pantoprazole Past Medical History - General Information source: Patient, [facility] Records - Social History Smoking Status: Never Smoker Cigarette use (# per day): No Chew tobacco use (# tins/day): No Frequency of alcohol use: intermittent, heavy at times Drug Abuse: None Lives with: Family Family History: Reviewed & Not Pertinent Patient has suicidal ideation: No Patient has homicidal ideation: No - Past Medical History Cardiac Medical History: Reports: Hx Hypertension - gestational hypertension with first but has since resolved GI Medical History: Reports: Hx Ulcer - perforation 01/08 Psychiatric Medical History: Reports: Hx Attention Deficit Hyperactivity Disorder, Hx Depression - since 14 years years old Traumatic Medical History: Reports: Hx Fractures - ankle Past Surgical History: Reports: Hx Abdominal Surgery - gastric bypass, perforated ulcer, Hx Appendectomy, Hx Section - 2 C- sections; one before and one after the gastric bypass., Hx Cholecystectomy, Hx Gastric Bypass Surgery - done 5 yrs ago at [facility] here in [place]., Hx Orthopedic Surgery - Right Ankle ORIF - Immunizations Hx Diphtheria, Pertussis, Tetanus Vaccination: Yes Review of Systems - Review of Systems Constitutional: See HPI, Other - Hgb of 8.5 during outpatient labs x1.5 weeks ago EENT: No symptoms reported Cardiovascular: No symptoms reported Respiratory: No symptoms reported Gastrointestinal: No symptoms reported Genitourinary: No symptoms reported Female Genitourinary: No symptoms reported Musculoskeletal: No symptoms reported Skin: No symptoms reported Hematologic/Lymphatic: No symptoms reported Neurological/Psychological: No symptoms reported -: Yes All other systems reviewed and negative Physical Exam - Vital signs Vitals: Temp Pulse Resp BP Pulse Ox 98.0 F 93 22 H 139/84 H 100 07/19/19 12:08 07/19/19 12:08 07/19/19 12:08 07/19/19 12:08 07/19/19 12:08 - Notes Notes: Physical Exam: General: Alert, appears well. HEENT: Normocephalic. Atraumatic. PERRL. Extraocular movements intact. Oropharynx clear. Sclera are not pale. Neck: Supple. Non-tender. Respiratory: No respiratory distress. Clear and equal breath sounds bilaterally. Cardiovascular: Regular rate and rhythm. Abdominal: Normal Inspection. Non-tender. No distension. Normal Bowel Sounds. Back: No gross abnormalities. Extremities: Moves all four extremities. Finger nailbeds are not pale. Upper extremities: Normal inspection. Normal ROM. Lower extremities: Normal inspection. No edema. Normal ROM. Neurological: Normal cognition. AAOx4. Normal speech. Psychological: Normal affect. Normal Mood. Skin: Skin has normal color, she does have an excessive number of tattoos. Course - Re-evaluation Re-evalutation: 07/19/19 14:29 Patient's hemoglobin is 12.4, I suspect that there was an error or the mixed her blood up with someone else's on the draw a week and a half ago. The patient did complain of exertional shortness of breath and feeling tired all the time, so I am going to repeat the H&H to be certain. 07/19/19 15:35 Repeat H&H showed hemoglobin 10.9, it was 12.4 only 1-1/2 hours earlier. The platelet count also dropped from 3 77-3 20. As I cannot absolutely no that enough blood was drawn off the saline lock and discarded, we will repeat it and the nurse will be sure to discard 10 mL's of blood. On the third H&H, hemoglobin is 10.6 with a platelet count of 320, which means the hemoglobin in the tendon half to 11 range is reliable. - Vital Signs Vital signs: Temp Pulse Resp BP Pulse Ox 98.0 F 93 22 H 139/84 H 100 07/19/19 12:08 07/19/19 12:08 07/19/19 12:08 07/19/19 12:08 07/19/19 12:08 - Laboratory Result Diagrams: 07/19/19 15:09 07/19/19 12:40 Laboratory results interpreted by me: 07/19/19 07/19/19 07/19/19 12:40 12:40 14:14 Hgb 10.9 L Hct 35.1 L MCV 79 L MCH 24.5 L 24.7 L MCHC 30.6 L 31.2 L RDW 19.7 H 19.6 H Baso % (Auto) 2.5 H Chloride 110 H Creatinine 0.37 L AST 49 H Alkaline Phosphatase 136 H 07/19/19 15:09 Hgb 10.6 L Hct 33.5 L MCV MCH 25.3 L MCHC 31.6 L RDW 19.2 H Baso % (Auto) Chloride Creatinine AST Alkaline Phosphatase Discharge - Discharge Clinical Impression: Normal exam Condition: Stable Disposition: HOME, SELF-CARE Additional Instructions: Your hemoglobin levels today on multiple rechecks were in the lower range of normal. The abnormal hemoglobin that was reported to you by your doctor cannot be explained. Follow-up with your doctor to let them know what your lab work was today in the emergency room. RETURN TO THE EMERGENCY ROOM IF ANY NEW OR WORSENING SYMPTOMS. Referrals: MICKI YBARRA MD [Primary Care Provider] - Follow up as needed Scribe Attestation: 07/19/19 12:56 I personally performed the services described in the documentation, reviewed and edited the documentation which was dictated to the scribe in my presence, and it accurately records my words and actions. I personally performed the services described in the documentation, reviewed and edited the documentation which was dictated to the scribe in my presence, and it accurately records my words and actions.
[2019-07-19 13:46] LABS: ABSOLUTE BASOPHILS # (AUTO) 0.2 10^3/uL (0.0-0.2); ABSOLUTE EOSINOPHILS # (AUTO) 0.3 10^3/uL (0.0-0.6); ABSOLUTE LYMPHOCYTES (AUTO) 1.7 10^3/uL (0.5-4.7); ABSOLUTE MONOCYTES (AUTO) 0.6 10^3/uL (0.1-1.4); ABSOLUTE NEUT (AUTO) 3.7 10^3/uL (1.7-8.2); BASOPHILS % (AUTO) 2.5 % (0-2); EOSINOPHILS % (AUTO) 5.4 % (0-6); HEMATOCRIT 40.7 % (36.0-47.0); HEMOGLOBIN 12.4 g/dL (12.0-15.5); MEAN CORPUSCULAR HEMOGLOBIN 24.5 pg (27.0-33.4); MEAN CORPUSCULAR HGB CONC 30.6 g/dL (32.0-36.0); MEAN CORPUSCULAR VOLUME 80 fl (80-97); MONOCYTES % (AUTO) 9.5 % (3-13); PLATELET COUNT 377 10^3/uL (150-450); RED BLOOD COUNT 5.07 10^6/uL (3.72-5.28); RED CELL DISTRIBUTION WIDTH 19.7 % (11.5-14.0); SEGMENTED NEUTROPHILS % (AUTO) 56.6 % (42-78); TOTAL CELLS COUNTED % (AUTO) 100 %; WHITE BLOOD COUNT 6.5 10^3/uL (4.0-10.5)
[2019-07-19 14:25] LABS: ALKALINE PHOSPHATASE 136 U/L (38-126); ANION GAP 9 (5-19); ASPARTATE AMINO TRANSFERASE 49 U/L (14-36); BILIRUBIN,DIRECT 0.1 mg/dL (0.0-0.4); BILIRUBIN,TOTAL 0.3 mg/dL (0.2-1.3); BLOOD UREA NITROGEN 11 mg/dL (7-20); CALCIUM 9.1 mg/dL (8.4-10.2); CARBON DIOXIDE 26 mmol/L (22-30); CHLORIDE 110 mmol/L (98-107); GLUCOSE 83 mg/dL (75-110); POTASSIUM 3.9 mmol/L (3.6-5.0); TOTAL PROTEIN 6.7 g/dL (6.3-8.2)
[2019-07-19 14:49] LABS: HEMATOCRIT 35.1 % (36.0-47.0); HEMOGLOBIN 10.9 g/dL (12.0-15.5); MEAN CORPUSCULAR HEMOGLOBIN 24.7 pg (27.0-33.4); MEAN CORPUSCULAR HGB CONC 31.2 g/dL (32.0-36.0); MEAN CORPUSCULAR VOLUME 79 fl (80-97); PLATELET COUNT 320 10^3/uL (150-450); RED BLOOD COUNT 4.43 10^6/uL (3.72-5.28); RED CELL DISTRIBUTION WIDTH 19.6 % (11.5-14.0); WHITE BLOOD COUNT 6.2 10^3/uL (4.0-10.5)
[2019-07-19 15:27] LABS: HEMATOCRIT 33.5 % (36.0-47.0); HEMOGLOBIN 10.6 g/dL (12.0-15.5); MEAN CORPUSCULAR HEMOGLOBIN 25.3 pg (27.0-33.4); MEAN CORPUSCULAR HGB CONC 31.6 g/dL (32.0-36.0); MEAN CORPUSCULAR VOLUME 80 fl (80-97); PLATELET COUNT 320 10^3/uL (150-450); RED BLOOD COUNT 4.19 10^6/uL (3.72-5.28); RED CELL DISTRIBUTION WIDTH 19.2 % (11.5-14.0); WHITE BLOOD COUNT 6.6 10^3/uL (4.0-10.5)
[2019-07-19 16:05] VITALS: BP 130/92
== END 2019-07-19 16:05 | disposition home or self-care (01) ==
LOC: ER 12:03
DX: Z03.89 Encounter for observation for other suspected diseases and conditions ruled out (principal); R53.83 Other fatigue; R06.02 Shortness of breath; K27.9 Peptic ulcer, site unspecified, unspecified as acute or chronic, without hemorrhage or perforation; Z79.899 Other long term (current) drug therapy; Z98.84 Bariatric surgery status
CPT/HCPCS: 36415; 80053; 85025; 86850; 86900; 86901; 99283